=== PATIENT | female | born 1960 | race Caucasian/White ===

== ENCOUNTER 2023-10-30 19:29 | Observation (INO) ==
--- OUTSIDE RECORDS SUMMARY | 2023-10-30 19:52 | External Medical Summary | Summary of Care ---
Author Name Unknown Organization [facility] Address [address] [place] [address] Phone [phone] Care Team Providers Care Drywall Taper Helper Name Role Phone Beau Enriquez MD Primary Care Provider [phone] [phone] Encounter Details Date Type Department Care Team (Late st Contact Info) Description 08/16/2023 Orders Only Outcomes Research Department [address] [place], [place] [id number] Sindhu Underwood CHRA [employer] Other*[id number] Allergies Active Allergy Reactions Criticality Noted Date Comments Amoxicillin-Pot Clavulanate 08/28/19 Cat Dander 11/07/2004 Clarithromycin 11/19/2003 Fluoride Preparations 11/13/2021 abd pain Macrolides And Ketolides 05/05/2001 GI upset Sulfa Antibiotics 07/07/2000 hives documented as of this encounter (statuses as of 08/16/2023) Medications Medication Sig Dispensed Refills Start Date End Date Status ADVIL 200 MG PO TABS 2 tablets po q 4hrs prn fibromyalgia pain 0 Active Esomeprazole Magnesium 20 MG Oral Capsule Delayed ReleaseIndications: Gastroesophageal reflux disease, esophagitis presence not specified Take 1 Capsule by mouth in the morning. 1 hour before the first meal of the day Buys OTC. 90 Cap 3 09/22/2019 Active Combivent Respimat 20-100 MCG/ACT Inhalation Aerosol Solution (Ipratropium-Albute rol) inhale 1 puff by mouth and INTO THE LUNGS four times a day if needed for wheezing or cough 12 g 1 07/01/2022 Active Multivitamin Gummies Womens Oral Tablet Chewable Take by mouth. 0 Activ e Premarin 0.625 MG/GM Vaginal Cream (Estrogens Conjugated)Indicati ons:Atrophy of vulva Apply 0.5g twice a week 42.5 g 6 11/09/2022 Active Fluticasone-Salmete rol 250-50 MCG/ACT Inhalation Aerosol Powder Breath Activated (Wixela Inhub) Inhale 1 Puff by mouth in the morning and 1 Puff before bedtime. 60 Each 12 02/05/2023 Active Colestipol HCl 1 GM Oral Tablet (Colestid) 1-2 tabs once daily. 30 Tablet 12 02/16/2023 Active Fluticasone Propionate 50 MCG/ACT Nasal Suspension (Flonase) instill 2 sprays into each nostril once daily 48 g 3 03/03/2023 Active Amitriptyline HCl 25 MG Oral Tablet (Elavil) take 2 tablets by mouth at bedtime 60 Tablet 5 04/29/2023 Active Ondansetron HCl 4 MG Oral TabletIndications:M igraine variant Take 1 Tablet by mouth every 12 hours as needed for Nausea. 30 Tablet 0 05/12/2023 Active Rizatriptan Benzoate 10 MG Oral Tablet (Maxalt) TAKE 1 TABLET BY MOUTH AT ONSET OF MIGRAINE NEEDED. MAY REPEAT EVERY 2 HOURS UP TO 2 TIMES. DO NOT EXCEED 3 TABLETS PER 24 HOURS Strength: 10 mg 20 Tablet 3 05/12/2023 Active Dicyclomine HCl 10 MG Oral Capsule (Bentyl)Indications :Abdominal migraine, not intractable take 1 capsule by mouth every morning 1 capsule AT 12PM and 1 capsule at bedtime if needed for abdominal pain 90 Capsule 3 05/24/2023 Active Galcanezumab-gnlm 120 MG/ML Subcutaneous Solution Auto-injector (Emgality) 2 injections the first month and then 1 injection there after 2 mL 0 07/13/2023 Active Emgality 120 MG/ML Subcutaneous Solution Auto-injector (Galcanezumab-gnlm) 1 injection every month after the first month. 1 mL 3 07/13/2023 Active documented as of this encounter (statuses as of 08/16/2023) Active Problems Problem Noted Date Diagnosed Date Migraine variant 10/22/2020 Vaginal atrophy 08/09/2020 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/07/2020 Gastroesophageal reflux disease without esophagi tis 08/04/2020 Irritable bowel syndrome with diarrhea Fibromyalgia documented as of this encounter (statuses as of 08/16/2023) Resolved Problems Problem Noted Date Diagnosed Date Resolved Date Overweight (BMI 25.0-29.9) 02/02/2022 0 07/31/2022 Reactive airway disease without complication 2 02/02/2022 Mild intermittent asthma without complication 02/05/20 21 07/28/2021 Advanced directives, counseling/discussion 10/15/2020 02/04/2021 Urinary frequency 08/09/2020 02/04/2021 Mild persistent asthma with exacerbation 08/07/2020 08/07/2020 Mild persistent asthma without complication 08/07/2020 08/04/2023 Body mass index (BMI) of 40. 0 to 44.9 in adult 03/20/2019 07/20/2019 Overview: Per Obesity protocol History of tobacco use 12/17/201008/04 ADVANCE DIRECTIVE INFORMATION 11/07/2004 08/04/2020 Overview: No, Advance Directive brochure given to patient at prior appointment. POST-OPERATIVE CERVICAL STENOSIS 08/04/2020 documented as of this encounter (statuses as of 08/16/2023) Immunizations Name Administration Dates Next Due COVID-19 mRNA, LNP-s, No Pre serve, 2-Dose Series (Moderna) 08/14/2020,07/17/2020 COVID-19, mRNA, LNP-s, PF, B ooster, 100mcg/0.5mg (Moderna) 03/17/2021 Pneumococcal Conjugate Vacci ne, 20-valent ([id number]) 11/02/2021 Pneumococcal Polysaccharide PPV23 (Pneumovax) 12/17/2010,03/21/2010(Deferred: Patient Refused) Seasonal Influenza, PF, 6 M & above, IM , (FluLaval or Fluzone) 02/02/2022,01/10/2020,01/16/2019,03/12,02/02/2017 Seasonal Influenza, Quadriva lent, No Preserve, IM 01/28/2021,02/03/2016,03/28/2015 Seasonal Influenza, Split, I IV3, With Preserve, Inj 03/21/2010,04/20/2009,04/04/2007 TDAP (age 10 and older)(Boostrix) 02/07/2021 TDAP (age 11 and older)(Adacel) 12/18/19 11,03/21/2010(Deferred: Patient Refused) Zoster Vaccine Recombinant (Shingrix) 04/05/2018 ,01/27/2018 documented as of this encounter Social History Tobacco Use Types Packs/Day Years Used Date Smoking Tobacco: Former Cigarettes 0.5 32 1 06/04/1982 - 04/04/2015 Smokeless Tobacco: Never Comments:started smoking age 18, as of 06-17 "cutting bk, now down to 1/2 pk qd Alcohol Use Standard Drinks/Week Comments Yes 0 (1 standard drink = 0.6 oz pur e alcohol) social PHQ-2 Answer Date Recorded PHQ Adult Total Score 0 08/07/2020 Hunger Vital Sign Answer Date Recorded Within the past 12 months, y ou worried that your food would run out before you got the money to buy more. Never true 11/25/19 23 Within the past 12 months, t he food you bought just didn't last and you didn't have money to get more. Never true 11/24/2022 Sex and Gender Information Value Date Recorded Sex Assigned at Female 01/22/2021 6:28 AM EDT Gender Identity Female 01/22/2021 6:28 AM EDT Sexual Orientation Straight 01/22/2021 6: 28 AM EDT Job Start Date Occupation Industry Not on file Not on file Not on file documented as of this encounter Plan of Treatment Upcoming Encounters Date Type Department Care Team (Late st Contact Info) Description 08/17/2023 9:30 AM EDT Office Visit Gastroenterology, [facility] [address] [place] [address] Scott Jarrell CRNP [address] [facility] [place] [address] 12/20/2023 8:00 AM EDT Imaging Radiology [facility] [place] [address] [place] [address] 01/03/2024 1:00 PM EDT Office Visit Gynecology/Obstetrics [facility] [address] [facility] [place] [address] Mckenzie Canseco PA-C [address] [place] [address] 01/19/2024 8:40 AM EDT Office Visit [facility] [address] [place] [address] Madelin Pickett PA-C [address] [place] [address] 02/07/2024 11:40 AM EDT Office Visit Family Practice [facility] [address] [facility] [place] [address] Beau Enriquez MD [address] [place] [address] Scheduled Orders Name Type Priority Associated Diagnoses Orde r Schedule MYCODE SUBSEQUENT ADULT Lab Routine [employer] Other*[id number] Every 6 Months for 2 Occurrences starting 08/16/2023 until 09/04/2024 Scheduled Procedures Name Priority Associated Diagnoses Date/Ti me COLONOSCOPY FLEXIBLE PROXIMAL DIAGNOSTIC Recall History of colon polyps Health Maintenance Due Date Last Done Comments HPV/Co-Test 02/27/1990 Depression Screening 08/07/2021 08/07/2020 COVID-19 Vaccine ( season) 2023 03/17/2021, 08/14/2020, 07/17/2020 Mammogram 12/18/2023 12/17/2022, 12/09, 12/11/2021, Additional history exists Influenza Vaccine (FLU shot) (Season Ended) 2024 02/02/2022, 01/28/2021, 01/10/2020, Additional history exists Cervical Cancer Screening 08/27/2024 Pap Smear 08/27/2024 08/27/2021, 08/08, 03/23/2016, Additional history exists Diabetes Screening 07/15/2025 07/15/2022, 0 05/10/2022, 01/23/2017, Additional history exists COLONOSCOPY-EVERY 5 YRS AGES 18-100 09/04/2026 09/04/2021, 09/04/2021, 11/12/2004 Lipid Panel 07/16/2027 07/15/2022, 01/08, 12/19/2010 DTaP,Tdap,and Td Vaccines (3 - Td or Tdap) 02/07/2031 02/07/2021, 12/17/2010 Zoster Vaccines Completed 04/05/2018, 01/27/2018 Cologuard Discontinued 08/18/2020, 02/01/2017 Colonoscopy Discontinued 09/04/2021, 08/09, 11/12/2004 Colorectal Cancer Screening Discontinued Pneumococcal Vaccine: Pediatrics (0 to 5 Years) and At-Risk Patients (6 to 64 Years) Completed 11/02/2021, 12/17/2010 Fecal Occult Blood Test Discontinued GARDASIL-HPV IMMUNIZATION SERIES Aged Out No longer eligible based on patient's age to complete this topic Hepatitis B Aged Out No longer eligi ble based on patient's age to complete this topic MENINGOCOCCAL (MENACTRA/MENVEO) Aged Out No longer eligible based on patient's age to complete this topic Sigmoidoscopy Discontinued documented as of this encounter Medical Devices Not on filedocumented as of this encounter Visit Diagnoses Diagnosis [employer] Other*[id number] documented in this encounter Care Teams Drywall Taper Helper Relationship Specialty Start Date End Date Beua Enriquez MD [address] [place] [address] PCP - General Family Medicine 07/26/20 documented as of this encounter
--- OUTSIDE RECORDS SUMMARY | 2023-10-30 19:52 | External Medical Summary | Summary of Care ---
Author Name Unknown Organization [facility] Address [address] [place] [address] Phone [phone] Care Team Providers Care Inside Finisher Name Role Phone Beau Enriquez MD Primary Care Provider [phone] [phone] Reason for Visit * Reason Onset Date Comments Health Maintenance 08/02/2023 Encounter Details Date Type Department Care Team (Late st Contact Info) Description 08/02/2023 Telephone Family Practice [facility] [address] [facility] [place] [address] Beau Enriquez MD [address] [facility] [place] [address] Health Maintenance Allergies Active Allergy Reactions Criticality Noted Date Comments Amoxicillin-Pot Clavulanate 08/28/19 22 Cat Dander 11/07/2004 Clarithromycin 11/19/2003 Fluoride Preparations 11/13/2021 abd pain Macrolides And Ketolides 05/05/2001 GI upset Sulfa Antibiotics 07/07/2000 hives documented as of this encounter (statuses as of 08/02/2023) Medications Medication Sig Dispensed Refills Start Date [...] as of this encounter (statuses as of 08/02/2023) Active Problems Problem Noted Date Diagnosed Date Migraine variant 10/22/2020 Vaginal atrophy 08/09/2020 Mild persistent asthma without complication 07/10 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/07/2020 Gastroesophageal reflux disease without esophagi tis 08/04/2020 Irritable bowel syndrome with diarrhea Fibromyalgia documented as of this encounter (statuses as of 08/02/2023) Resolved Problems Problem Noted Date Diagnosed Date Resolved Date Overweight (BMI 25.0-29.9) 02/02/2022 0 07/31/2022 Reactive airway disease without complication 2 02/02/2022 Mild intermittent asthma without complication 02/05/20 21 07/28/2021 Advanced directives, counseling/discussion 10/15/2020 02/04/2021 Urinary frequency 08/09/2020 02/04/2021 Mild persistent asthma with exacerbation 08/07/2020 08/07/2020 Body mass index (BMI) of 40. 0 to 44.9 in adult 03/20/2019 07/20/2019 Overview: Per Obesity protocol History of tobacco use 12/17/201008/04 ADVANCE DIRECTIVE INFORMATION 11/07/2004 08/04/2020 Overview: No, Advance Directive brochure given to patient at prior appointment. POST-OPERATIVE CERVICAL STENOSIS 08/04/2020 documented as of this encounter (statuses as of 08/02/2023) Immunizations Name Administration Dates Next Due COVID-19 mRNA, LNP-s, No Pre serve, 2-Dose Series (Moderna) 08/14/2020,07/17/2020 COVID-19, mRNA, LNP-s, PF, B ooster, 100mcg/0.5mg (Moderna) 03/17/2021 Pneumococcal Conjugate Vacci ne, 20-valent ([id number]) 11/02/2021 Pneumococcal Polysaccharide PPV23 (Pneumovax) 12/17/2010,03/21/2010(Deferred: Patient [...] Never Comments:started smoking age 18, as of 2-08 "cutting bk, now down to 1/2 pk [...] on file documented as of this encounter Miscellaneous Notes * Telephone Encounter - Trish Izquierdo LPN - 08/02/2023 2:24 PM EDT Care Gaps Comprehensive Care Outreach Last Office/Telemedicine Visit: 04/07/2023 (in office), 05/30/2020 (telemedicine) Next Office Visit: 08/04/2023 Hemoglobin AIC Results: Lab Results Component Value Date/Time HEMOGLOBIN A1C - SURYAER 5.6 07/15/2022 08:18 AM BP Readings from Last 1 Encounters: 07/13/23 134/88 Reviewed Health Maintenance below: Health Maintenance Topic Date Due Depression Screening 08/07/2021 *SPIROMETRY ONCE FOR ASTHMA-ADULT Never done Influenza Vaccine (FLU shot) (1) 01/08/2023 COVID-19 Vaccine ( season) 2023 Mammogram 12/18/2023 Mamm already scheduled order placed Pft my g Care Gap Outreach Action Taken: [employer] message sent documented in this encounter Plan of Treatment Upcoming Encounters Date Type Department Care Team (Late st Contact Info) Description 08/04/2023 10:40 AM EDT Office Visit Family Practice [facility] [address] [place] [address] Beau Enriquez MD [address] [place] [address] 10/13/2023 11:30 AM EDT Office Visit Gastroenterology, [facility] [address] [place] [address] Scott Jarrell CRNP [address] [place] [address] 12/20/2023 8:00 AM EDT Imaging Radiology [facility] [address] [place] [address] 01/03/2024 1:00 PM EDT Office Visit Gynecology/Obstetrics [facility] [address] [place] [address] Mckenzie Canseco PA-C [address] [place] [address] 01/19/2024 8:40 AM EDT Office Visit Neurology [facility] [address] [place] [address] Madelin Pickett PA-C [address] [facility] [place], [place] [address] Scheduled Orders Name Type Priority Associated Diagnoses Orde r Schedule MAMMOGRAM SCREENING AMARJIT BILATERAL Medical Imaging Routine Encounter for screening mammogram for malignant neoplasm of breast Expected: 08/02/2023, Expires: 09/01/2024 Scheduled Procedures Name Priority Associated Diagnoses Date/Ti me COLONOSCOPY FLEXIBLE PROXIMAL DIAGNOSTIC Recall History of colon polyps Health Maintenance Due Date Last Done Comments HPV/Co-Test 02/27/1990 Depression Screening 08/07/2021 08/07/2020 *SPIROMETRY ONCE FOR ASTHMA-ADULT 02/05/2022 COVID-19 Vaccine ( season) 2023 03/17/2021, 08/14/2020, 07/17/2020 Influenza Vaccine (FLU shot) (#1) 2023 02/02/2022, 01/28/2021, 01/10/2020, Additional history exists Mammogram 12/18/2023 12/17/2022, 12/09, 12/11/2021, Additional history exists Cervical Cancer Screening 08/27/2024 [...] as of this encounter Visit Diagnoses Diagnosis Encounter for screening mammogram for malignant neoplasm of breast- Primary Other screening mammogram documented in this encounter Care Teams Inside Finisher Relationship Specialty Start Date End Date Beau Enriquez MD [address] [place] [address] PCP - General Family Medicine 07/26/20 documented as of this encounter
--- OUTSIDE RECORDS SUMMARY | 2023-10-30 19:52 | External Medical Summary | Summary of Care ---
Author Name Unknown Organization [facility] Address [address] [place] [address] Phone [phone] Care Team Providers Care Cabinet Builder Name Role Phone Jaime Still MD Primary Care Provider [phone] [phone] Reason for Visit * Reason Onset Date Comments Medication Refill 09/26/2023 Encounter Details Date Type Department Care Team (Late st Contact Info) Description 09/26/2023 Refill Family Practice [facility] [address] [facility] [place] [address] Jaime Still MD [address] [facility] [place] [address] Allergies Active Allergy Reactions Criticality Noted Date Comments Amoxicillin-Pot Clavulanate 08/28/19 22 Cat Dander 11/07/2004 Clarithromycin 11/19/2003 Fluoride Preparations 11/13/2021 abd pain Macrolides And Ketolides 05/05/2001 GI upset Sulfa Antibiotics 07/07/2000 hives documented as of this encounter (statuses as of 09/28/2023) Medications Medication Sig Dispensed Refills Start Date End Date Status ADVIL 200 MG PO TABS 2 tablets po q 4hrs prn fibromyalgia pain Active Esomeprazole Magnesium 20 MG Oral Capsule Delayed ReleaseIndication s:Gastroesophagea l reflux disease, esophagitis presence not specified Take 1 Capsule by mouth in the morning. 1 hour before the first meal of the day Buys OTC. 90 Cap 3 09/22/2019 Active Multivitamin Gummies Womens Oral Tablet Chewable Take by mouth. Active Premarin 0.625 MG/GM Vaginal Cream (Estrogens Conjugated)Indica tions:Atrophy of vulva Apply 0.5g twice a week 42.5 g 6 11/09/2022 Active Fluticasone-Salme terol 250-50 MCG/ACT Inhalation Aerosol Powder Breath Activated (Wixela Inhub) Inhale 1 Puff by mouth in the morning and 1 Puff before bedtime. 60 Each 12 02/05/2023 Active Colestipol HCl 1 GM Oral Tablet (Colestid) 1-2 tabs once daily. 30 Tablet 12 02/16/2023 Active Fluticasone Propionate 50 MCG/ACT Nasal Suspension (Flonase) instill 2 sprays into each nostril once daily 48 g 3 03/03/2023 Active Ondansetron HCl 4 MG Oral TabletIndications :Migraine variant Take 1 Tablet by mouth every 12 hours as needed for Nausea. 30 Tablet 05/12/2023 Active Dicyclomine HCl 10 MG Oral Capsule (Bentyl)Indicatio ns:Abdominal migraine, not intractable take 1 capsule by mouth every morning 1 capsule AT 12PM and 1 capsule at bedtime if needed for abdominal pain 90 Capsule 3 05/24/2023 Active Galcanezumab-gnlm 120 MG/ML Subcutaneous Solution Auto-injector (Emgality) 2 injections the first month and then 1 injection there after 2 mL 07/13/2023 Active Emgality 120 MG/ML Subcutaneous Solution Auto-injector (Galcanezumab-gnl m) Inject 1 pen (120 mg) under the skin every month after the first month. 1 mL 3 07/13/2023 Active Rizatriptan Benzoate 10 MG Oral Tablet (Maxalt) take 1 tablet by mouth AT ONSET OF HEADACHE may repeat in 2 hours IF headache PERSISTS maximum daily dose of 3 tablets ( 30 milligrams ) every 24 hours 20 Tablet 3 08/16/2023 Active Amitriptyline HCl 25 MG Oral Tablet (Elavil) take 2 tablets by mouth at bedtime 60 Tablet 5 09/27/2023 Active Combivent Respimat 20-100 MCG/ACT Inhalation Aerosol Solution (Ipratropium-Albu terol) Inhale 1 puff by mouth and INTO THE LUNGS four times a day if needed for wheezing or cough 12 g 1 09/28/2023 Active Combivent Respimat 20-100 MCG/ACT Inhalation Aerosol Solution (Ipratropium-Albu terol) inhale 1 puff by mouth and INTO THE LUNGS four times a day if needed for wheezing or cough 12 g 1 07/01/2022 Discontinue d(Refill) documented as of this encounter (statuses as of 09/28/2023) Active Problems Problem Noted Date Diagnosed Date Migraine variant 10/22/2020 Vaginal atrophy 08/09/2020 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/07/2020 Gastroesophageal reflux disease without esophagi tis 08/04/2020 Irritable bowel syndrome with diarrhea Fibromyalgia documented as of this encounter (statuses as of 09/28/2023) Resolved Problems Problem Noted Date Diagnosed Date [...] as of this encounter (statuses as of 09/28/2023) Immunizations Name Administration Dates Next Due COVID-19 mRNA, LNP-s, No Pre serve, 2-Dose Series (Moderna) 08/14/2020,07/17/2020 COVID-19, mRNA, LNP-s, PF, B ooster, 100mcg/0.5mg (Moderna) 03/17/2021 Pneumococcal Conjugate Vacci ne, 20-valent ([id number]) 11/02/2021 Pneumococcal Polysaccharide PPV23 (Pneumovax) 12/17/2010,03/21/2010(Deferred: Patient [...] encounter Miscellaneous Notes * Telephone Encounter - Dontae Blair, [facility] - 09/28/2023 7:11 AM EDTSigned Prescriptions: Disp Refills Combivent Respimat 20-100 MCG/ACT Inhalati*12 g 1 Sig: Inhale 1puff by mouth and INTO THE LUNGS four times a day if needed for wheezing or coughAuthorizing Provider: JAIME STILL User: DONTAE DAI documented in this encounter Plan of Treatment Upcoming Encounters Date Type Department Care Team (Late st Contact Info) Description 12/20/2023 8:00 AM EDT Imaging Radiology [facility] [address] [facility] [address] [place] [address] 01/03/2024 1:00 PM EDT Office Visit Gynecology/Obstetrics [facility] [address] [place] [address] Mckenzie Canseco PA-C [address] [place] [address] 01/19/2024 8:40 AM EDT Office Visit Neurology [facility] [address] [facility] [place] [address] Madelin Pickett PA-C [address] [facility] [place] [address] 02/07/2024 11:40 AM EDT Office Visit Family Practice [facility] [address] [place] [address] Jaime Still MD [address] [place] [address] Scheduled Procedures Name Priority Associated Diagnoses Date/Ti me COLONOSCOPY FLEXIBLE PROXIMAL DIAGNOSTIC Recall History of colon polyps Health Maintenance Due Date Last Done Comments HPV/Co-Test 02/27/1990 Fecal Occult Blood Test 02/27/2005 Sigmoidoscopy 02/27/2005 Depression Screening 08/07/2021 08/07/2020 COVID-19 Vaccine ( season) 2023 03/17/2021, 08/14/2020, 07/17/2020 Cologuard 08/19/2023 08/18/2020, 02/01/2017 Mammogram 12/18/2023 12/17/2022, 12/09, 12/11/2021, Additional history exists Influenza Vaccine (FLU shot) (Season Ended) 2024 02/02/2022, 01/28/2021, 01/10/2020, Additional history exists Cervical Cancer Screening 08/27/2024 Pap Smear 08/27/2024 08/27/2021, 08/08, 03/23/2016, Additional history exists Diabetes Screening 07/15/2025 07/15/2022, 0 05/10/2022, 01/23/2017, Additional history exists Colonoscopy 09/04/2026 09/04/2021, 08/09, 11/12/2004 Colorectal Cancer Screening 09/04/2026 Lipid Panel 07/16/2027 07/15/2022, 01/08, 12/19/2010 DTaP,Tdap,and Td Vaccines (3 - Td or Tdap) 02/07/2031 02/07/2021, 12/17/2010 Zoster Vaccines Completed 04/05/2018, 01/27/2018 RETIRED - COLONOSCOPY-EVERY 5 YRS AGES 18-100 Discontinued 09/04/2021, 09/04/2021, 11/12/2004 Pneumococcal Vaccine: Pediatrics (0 to 5 Years) and At-Risk Patients (6 to 64 Years) Completed 11/02/2021, 12/17/2010 GARDASIL-HPV IMMUNIZATION SERIES Aged Out No longer eligible based on patient's age to complete this topic Hepatitis B Aged Out No longer eligi ble based on patient's age to complete this topic MENINGOCOCCAL (MENACTRA/MENVEO) Aged Out No longer eligible based on patient's age to complete this topic documented as of this encounter Medical Devices Not on filedocumented as of this encounter Care Teams Cabinet Builder Relationship Specialty Start Date End Date Jaime Still MD [address] [place] [address] PCP - General Family Medicine 07/26/20 documented as of this encounter
--- OUTSIDE RECORDS SUMMARY | 2023-10-30 19:52 | External Medical Summary | Summary of Care ---
Author Name Unknown Organization [facility] Address [address] [place] [address] Phone [phone] Care Team Providers Care Outboard Motor Inspector Name Role Phone Beau Enriquez MD Primary Care Provider [phone] [phone] Reason for Visit * Reason Onset Date Comments Medication Refill 09/26/2023 Encounter Details Date Type Department Care Team (Late st Contact Info) Description 09/26/2023 Refill Neurology [facility] [address] [place] [address] Yonathan Wright PA-C [address] [place] [address] Allergies Active Allergy Reactions Criticality Noted Date Comments Amoxicillin-Pot Clavulanate 08/28/19 22 Cat Dander 11/07/2004 Clarithromycin 11/19/2003 Fluoride Preparations 11/13/2021 abd pain Macrolides And Ketolides 05/05/2001 GI upset Sulfa Antibiotics 07/07/2000 hives documented as of this encounter (statuses as of 09/27/2023) Medications Medication Sig Dispensed Refills Start Date [...] at bedtime 60 Tablet 5 09/27/2023 Active Amitriptyline HCl 25 MG Oral Tablet (Elavil) take 2 tablets by mouth at bedtime 60 Tablet 5 04/29/2023 Discontinue d(Refill) documented as of this encounter (statuses as of 09/27/2023) Active Problems Problem Noted Date Diagnosed Date Migraine variant 10/22/2020 Vaginal atrophy 08/09/2020 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/07/2020 Gastroesophageal reflux disease without esophagi tis 08/04/2020 Irritable bowel syndrome with diarrhea Fibromyalgia documented as of this encounter (statuses as of 09/27/2023) Resolved Problems Problem Noted Date Diagnosed Date Resolved Date Overweight (BMI 25.0-29.9) 02/02/2022 0 07/31/2022 Reactive airway disease without complication 2 02/02/2022 Mild intermittent asthma without complication 02/05/2007/28/2021 Advanced directives, counseling/discussion 10/15/2020 02/04/2021 Urinary frequency [...] as of this encounter (statuses as of 09/27/2023) Immunizations Name Administration Dates Next Due COVID-19 mRNA, LNP-s, No Pre serve, 2-Dose Series (Moderna) 08/14/2020,07/17/2020 COVID-19, mRNA, LNP-s, PF, B ooster, 100mcg/0.5mg (Moderna) 03/17/2021 Pneumococcal Conjugate Vacci ne, 20-valent ([id number]) 11/02/2021 Pneumococcal Polysaccharide PPV23 (Pneumovax) 12/17/2010,03/21/2010(Deferred: Patient Refused) Seasonal Influenza, PF, 6 M & above, IM , (FluLaval or Fluzone) 02/02/2022,01/10/2020,01/16/2019,03/12,02/02/2017 Seasonal Influenza, Quadriva lent, No Preserve, IM 01/28/2021,02/03/2016,03/28/2015 Seasonal Influenza, Split, I IV3, With Preserve, Inj 03/21/2010,04/20/2009,04/04/2007 TDAP (age 10 and older)(Boostrix) 02/07/2021 TDAP (age 11 and older)(Adacel) 12/18/19,03/21/2010(Deferred: Patient Refused) Zoster Vaccine Recombinant (Shingrix) 04/05/2018 [...] encounter Miscellaneous Notes * Telephone Encounter - Yonathan Wright PA-C - 09/27/2023 8:28 AM EDT Signed Prescriptions: Disp Refills Amitriptyline HCl 25 MG Oral Tablet (Elavi*60 Tab*5 Sig: take 2 tablets by mouth at bedtime Authorizing Provider: YONATHAN WRIGHT * Telephone Encounter - Ewa Horton, MED ASSIST - 09/27/2023 8:04 AM EDT Pending Prescriptions: Disp Refills Amitriptyline HCl 25 MG Oral Tablet (Elavi*60 Tab*5 Sig: take 2tablets by mouth at bedtime documented in this encounter Plan of Treatment Upcoming Encounters Date Type Department Care Team (Late st Contact Info) Description 12/20/2023 8:00 AM EDT Imaging Radiology [address] [place] [address] 01/03/2024 1:00 PM EDT Office Visit Gynecology/Obstetrics [facility] [address] [place] [address] Mckenzie Canseco PA-C [address] [place] [place] [address] 01/19/2024 8:40 AM EDT Office Visit Neurology [facility] [address] [place] [address] Yonathan Wright PA-C [address] [place] [address] 02/07/2024 11:40 AM EDT Office Visit Family Practice [facility] [address] [place] [address] Beau Enriquez MD [address] [place] [address] Scheduled Procedures Name Priority Associated Diagnoses Date/Ti [...] filedocumented as of this encounter Care Teams Outboard Motor Inspector Relationship Specialty Start Date End Date Beau Enriquez MD [address] [address] PCP - General Family Medicine 07/26/20 documented as of this encounter
--- OUTSIDE RECORDS SUMMARY | 2023-10-30 19:52 | External Medical Summary | Summary of Care ---
Author Name Unknown Organization [facility] Address [address] [place] [address] Phone [phone] Care Team Providers Care Occupational Safety And Health Manager Name Role Phone Jaime Still MD Primary Care Provider [phone] [phone] Reason for Visit * Reason Comments eRx-Medication Refill Encounter Details Date Type Department Care Team (Late st Contact Info) Description 08/15/2023 Refill Family Practice [facility] [address] [facility] [place] [address] Jaime Still MD [address] [facility] [place] [address] Allergies Active Allergy Reactions Criticality Noted [...] the day Buys OTC. 90 Cap 3 0 Active Combivent Respimat 20-100 MCG/ACT Inhalation Aerosol Solution (Ipratropium-Albu terol) inhale 1 puff by mouth and INTO THE LUNGS four times a day if needed for wheezing or cough 12 g 1 3 Active Multivitamin Gummies Womens Oral Tablet Chewable Take by mouth. 0 Active Premarin 0.625 MG/GM Vaginal Cream (Estrogens Conjugated)Indica tions:Atrophy of vulva Apply 0.5g twice a week 42.5 g 6 3 Active Fluticasone-Salme terol 250-50 MCG/ACT Inhalation Aerosol Powder Breath Activated (Wixela Inhub) Inhale 1 Puff by mouth in the morning and 1 Puff before bedtime. 60 Each 12 3 Active Colestipol HCl 1 GM Oral Tablet (Colestid) 1-2 tabs once daily. 30 Tablet 12 3 Active Fluticasone Propionate 50 MCG/ACT Nasal Suspension (Flonase) instill 2 sprays into each nostril once daily 48 g 3 3 Active Amitriptyline HCl 25 MG Oral Tablet (Elavil) take 2 tablets by mouth at bedtime 60 Tablet 5 3 Active Ondansetron HCl 4 MG Oral TabletIndications :Migraine variant Take 1 Tablet by mouth every 12 hours as needed for Nausea. 30 Tablet 0 4 Active Dicyclomine HCl 10 MG Oral Capsule (Bentyl)Indicatio ns:Abdominal migraine, not intractable take 1 capsule by mouth every morning 1 capsule AT 12PM and 1 capsule at bedtime if needed for abdominal pain 90 Capsule 3 4 Active Galcanezumab-gnlm 120 MG/ML Subcutaneous Solution Auto-injector (Emgality) 2 injections the first month and then 1 injection there after 2 mL 0 4 Active Emgality 120 MG/ML Subcutaneous Solution Auto-injector (Galcanezumab-gnl m) Inject 1 pen (120 mg) under the skin every month after the first month. 1 mL 3 4 Active Rizatriptan Benzoate 10 MG Oral Tablet (Maxalt) take 1 tablet by mouth AT ONSET OF HEADACHE may repeat in 2 hours IF headache PERSISTS maximum daily dose of 3 tablets ( 30 milligrams ) every 24 hours 20 Tablet 3 4 Active Rizatriptan Benzoate 10 MG Oral Tablet (Maxalt) TAKE 1 TABLET BY MOUTH AT ONSET OF MIGRAINE NEEDED. MAY REPEAT EVERY 2 HOURS UP TO 2 TIMES. DO NOT EXCEED 3 TABLETS PER 24 HOURS Strength: 10 mg 20 Tablet 3 4 08/16/19 24 Discontinued documented as of this encounter (statuses as [...] (Moderna) 03/17/2021 Pneumococcal Conjugate Vacci ne, 20-valent ([id number]) 11/02/2021 Pneumococcal Polysaccharide PPV23 (Pneumovax) 12/17/2010,03/21/2010(Deferred: Patient [...] encounter Miscellaneous Notes * Telephone Encounter - Jose Elias Roberts [facility] - 08/16/2023 4:03 PM EDT Signed Prescriptions: Disp Refills Rizatriptan Benzoate 10 MG Oral Tablet (Ma*20 Tab*3 Sig: take 1 tablet by mouth AT ONSET OF HEADACHE may repeat in 2 hours IF headache PERSISTS maximum daily dose of 3 tablets ( 30 milligrams ) every 24 hoursAuthorizing Provider: JAIME STILL User: JOSE ELIAS ROBERTS documented in this encounter Plan of Treatment Upcoming Encounters Date Type Department Care Team (Late st Contact Info) Description 08/17/2023 9:30 AM EDT Office Visit [facility], [facility] [place] [address] Scott Jarrell CRNP [address] [facility] [place] [address] 12/20/2023 8:00 AM EDT Imaging Radiology [facility] [address] [facility] [place] [address] 01/03/2024 1:00 PM EDT Office Visit Gynecology/Obstetrics [facility] [address] [facility] [place] [address] Mckenzie Canseco PA-C [address] [facility] [place] [address] 01/19/2024 8:40 AM EDT Office Visit [facility] [address] [place] [address] Madelin Pickett PA-C [address] [place] [address] 02/07/2024 11:40 AM EDT Office Visit Family Practice [facility] [address] [place] [address] Jaime Still MD [address] [place] [address] Scheduled Procedures Name Priority Associated Diagnoses Date/Ti [...] filedocumented as of this encounter Care Teams Occupational Safety And Health Manager Relationship Specialty Start Date End Date Jaime Still MD [address] [place] [address] PCP - General Family Medicine 07/26/20 documented as of this encounter
--- OUTSIDE RECORDS SUMMARY | 2023-10-30 19:52 | External Medical Summary | Summary of Care ---
Author Name Unknown Organization [facility] Address [address] [place] [address] Phone [phone] Care Team Providers Care Certified Forklift Operator Name Role Phone Beau Enriquez MD Primary Care Provider [phone] Reason for Visit * Reason Comments Dosage Adjustment Via Phone (anticoag Cl inic) Encounter Details Date Type Department Care Team (Late st Contact Info) Description 10/08/2023 1:00 PM EDT Telemedicine Neurology, [place] [address] [place] [address] [place], Pharmacist Neurology [address] [place] [address] Migraine variant* Allergies Active Allergy Reactions Criticality Noted Date Comments Amoxicillin-Pot Clavulanate 08/28/19 22 Cat Dander 11/07/2004 Clarithromycin 11/19/2003 Fluoride Preparations 11/13/2021 abd pain Macrolides And Ketolides 05/05/2001 GI upset Sulfa Antibiotics 07/07/2000 hives documented as of this encounter (statuses as of 10/08/2023) Medications Medication Sig Dispensed Refills Start Date [...] abdominal pain 90 Capsule 3 05/24/2023 Active Rizatriptan Benzoate 10 MG Oral Tablet [...] or cough 12 g 1 09/28/2023 Active Emgality 120 MG/ML Subcutaneous Solution Auto-injector (Galcanezumab-gnl m) Inject 1 mL under the skin Every Month. 1 mL 3 10/08/2023 Active Galcanezumab-gnlm 120 MG/ML Subcutaneous Solution Auto-injector (Emgality) 2 injections the first month and then 1 injection there after 2 mL 07/13/2023 4 Discontinue d(Medicatio n List Clean Up) Emgality 120 MG/ML Subcutaneous Solution Auto-injector (Galcanezumab-gnl m) Inject 1 pen (120 mg) under the skin every month after the first month. 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/07/2020 Gastroesophageal reflux disease without esophagi tis 08/04/2020 Irritable bowel syndrome with diarrhea Fibromyalgia documented as of this encounter (statuses as of 10/08/2023) Resolved Problems Problem Noted Date Diagnosed Date [...] as of this encounter (statuses as of 10/08/2023) Immunizations Name Administration Dates Next Due COVID-19 mRNA, LNP-s, No Pre serve, 2-Dose Series (Moderna) 08/14/2020,07/17/2020 COVID-19, mRNA, LNP-s, PF, B ooster, 100mcg/0.5mg (Moderna) 03/17/2021 Pneumococcal Conjugate Vacci ne, 20-valent ([id number]) 11/02/2021 Pneumococcal Polysaccharide PPV23 (Pneumovax) 12/17/2010,03/21/2010(Deferred: Patient Refused) Seasonal Influenza, PF, 6 M & above, IM , (FluLaval or Fluzone) 02/02/2022,01/10/2020,01/16/2019,03/12,02/02/2017 Seasonal Influenza, Quadriva lent, No Preserve, IM 01/28/2021,02/03/2016,03/28/2015 Seasonal Influenza, Split, I IV3, With Preserve, Inj 03/21/2010,04/20/2009,04/04/2007 TDAP (age 10 and older)(Boostrix) 02/07/2021 TDAP, Age 7 and older, IM (Adacel) 12/17,03/21/2010(Deferred: Patient Refused) Zoster Vaccine Recombinant (Shingrix) 04/05/2018 [...] on file documented as of this encounter Progress Notes * Miriam Ashraf, [facility] ED - 10/08/2023 1:25 PM EDT Clinical Pharmacy Service (Neurology): Medication Management Name: Sherri Coulter Diagnosis: Migraine CURRENT MEDICATION REGIMEN (as documented in last office visit on 07/13/23 with Madelin Pickett) Emgality Any new medication/OTC/herbals since last visit?: no new medications/OTC/herbals. CGRP mAb MEDICATION USE ASSESSMENT Adherence to all above active medications used for migraine: Were any of your last three doses administered outside of the due date? no Any issues obtaining your prescription for your cGRP mAb: no Allergic / Local Reactions Reported: very small - states more like a pink spot How long do these last: lasts no more than a day - not bothersome What makes better: n/a Side Effects Reported: constipation - patient is working with GI to manage her short bowel syndrome and and IBS vs. Abdominal migraine symptoms Patient denies at this time. DISEASE ACTIVITY and IMPACT ASSESSMENT Migraine Disability Assessment Test Number of Days On how many days in the last 3 months did you miss work or school because of your headaches? 2 - not working but in regards to commitments, missed 2 chiropractor appts How many days in the last 3 months was your productivity at work or school reduced by half or more because of your headaches? (Do not include days you counted in question 1 where you missed work or school.) 0 On how many days in the last 3 months did you not do household work (such as housework, home repairs and maintenance, shopping, caring for children and relatives) because of your headaches? 3 How many days in the last 3 months was your productivity in household work reduced by half of more because of your headaches? (Do not include days you counted in question 3 where you did not do household work.) 0 On how many days in the last 3 months did you miss family, social or leisure activities because of your headaches? 3 Total Score: 8 - states huge improvements from prior baseline as now not also having to take multiple days in a row out of her commitments for 3 day abdominal migraines MIDAS Grade Definition MIDAS Score I - Little or No Disability: 0-5 II - Mild Disability: 6-10 III - Moderate Disability: 11-20 IV - Severe Disability: 21+ ASSESSMENT / PLAN The patient was educated on when to contact neurology office/provider to include change in headachesymptoms or characteristics, worsened interference with quality of life, adverse drug effects, using excess pain relievers, or coughing/sneezing that causes headache. The patient was advised to seek urgent medical care if experiencing headache with accompanying alarming symptoms including but not limited to confusion, dizziness, slurred speech, vision loss, numbness, SOB, fever, and/or persistent vomiting/diarrhea. Continue headache plan outlined by provider. Patient reports that a refill will be needed for next month. Issued prescription to preferred pharmacy as confirmed with patient.. Patient is very satisfied with the control she is getting almost next day with the Emgality. She isalso grateful that her GI symptoms likely related to her abdominal migraine have improved and are now treatable with her medication regimen whereas in the past were still difficult to control. [place] remain on therapy. Next Neurology Provider Office Visit/Appt: 01/19/[address] [facility] Clinical Pharmacist Neurology Department 10/08/2023,1:15 PM documented in this encounter Plan of Treatment Upcoming Encounters Date Type Department Care Team (Late st Contact Info) Description 12/20/2023 8:00 AM EDT Imaging Radiology [address] [place] [address] 01/03/2024 1:00 PM EDT Office Visit Gynecology/Obstetrics [facility] [address] [place] [address] Mckenzie Canseco PA-C 132 [facility] [place] [address] 01/19/2024 8:40 AM EDT Office Visit Neurology [facility] [address] [facility] [place] [address] Madelin Pickett PA-C [address] [facility] [place] [address] 02/07/2024 11:40 AM EDT Office Visit Family Practice [facility] [address] [place] [address] Beau Enriquez MD [address] [place] [address] Scheduled Procedures Name Priority Associated Diagnoses Date/Ti [...] as of this encounter Visit Diagnoses Diagnosis Migraine variant- Primary Variants of migraine, not elsewhere classified, without mention of intractable migraine without mention of status migrainosus documented in this encounter Care Teams Certified Forklift Operator Relationship Specialty Start Date End Date Beau Enriquez MD [address] [place] [address] PCP - General Family Medicine 07/26/20 documented as of this encounter
--- OUTSIDE RECORDS SUMMARY | 2023-10-30 19:52 | External Medical Summary | Summary of Care ---
Author Name Unknown Organization [facility] Address [address] [place] [address] Phone [phone] Care Team Providers Care Clinic Nurse Name Role Phone Beau Enriquez MD Primary Care Provider [phone] Reason for Visit * Reason Onset Date Comments Precert Approved 07/13/2023 Emgality Encounter Details Date Type Department Care Team (Late st Contact Info) Description 07/13/2023 Telephone Neurology [facility] [address] [place] [address] Madelin Pickett PA-C [address] [place] [address] Precert Approved ( Emgality) Allergies Active Allergy Reactions Criticality Noted Date Comments Amoxicillin-Pot Clavulanate 08/28/19 22 Cat Dander 11/07/2004 Clarithromycin 11/19/2003 Fluoride Preparations 11/13/2021 abd pain Macrolides And Ketolides 05/05/2001 GI upset Sulfa Antibiotics 07/07/2000 hives documented as of this encounter (statuses as of 10/12/2023) Medications Medication Sig Dispensed Refills Start Date End Date Status ADVIL 200 MG PO TABS 2 tablets po q 4hrs prn fibromyalgia pain Active Esomeprazole Magnesium 20 MG Oral Capsule Delayed ReleaseIndicatio ns:Gastroesophag eal reflux disease, esophagitis presence not specified Take 1 Capsule by mouth in the morning. 1 hour before the first meal of the day Buys OTC. 90 Cap 3 0 Active Multivitamin Gummies Womens Oral Tablet Chewable Take by mouth. Active Premarin 0.625 MG/GM Vaginal Cream (Estrogens Conjugated)Indic ations:Atrophy of vulva Apply 0.5g twice a week 42.5 g 6 3 Active Fluticasone-Salm eterol 250-50 MCG/ACT Inhalation Aerosol Powder Breath Activated (Wixela Inhub) Inhale 1 Puff by mouth in the morning and 1 Puff before bedtime. 60 Each 12 3 Active Colestipol HCl 1 GM Oral Tablet (Colestid) 1-2 tabs once daily. 30 Tablet 12 3 Active Fluticasone Propionate 50 MCG/ACT Nasal Suspension (Flonase) instill 2 sprays into each nostril once daily 48 g 3 3 Active Ondansetron HCl 4 MG Oral TabletIndication s:Migraine variant Take 1 Tablet by mouth every 12 hours as needed for Nausea. 30 Tablet 4 Active Dicyclomine HCl 10 MG Oral Capsule (Bentyl)Indicati ons:Abdominal migraine, not intractable take 1 capsule by mouth every morning 1 capsule AT 12PM and 1 capsule at bedtime if needed for abdominal pain 90 Capsule 3 4 Active Combivent Respimat 20-100 MCG/ACT Inhalation Aerosol Solution (Ipratropium-Alb uterol) inhale 1 puff by mouth and INTO THE LUNGS four times a day if needed for wheezing or cough 12 g 1 3 09/26/19 24 Discontinued(Re fill) Amitriptyline HCl 25 MG Oral Tablet (Elavil) take 2 tablets by mouth at bedtime 60 Tablet 5 3 09/26/19 24 Discontinued(Re fill) Rizatriptan Benzoate 10 MG Oral Tablet (Maxalt) TAKE 1 TABLET BY MOUTH AT ONSET OF MIGRAINE NEEDED. MAY REPEAT EVERY 2 HOURS UP TO 2 TIMES. DO NOT EXCEED 3 TABLETS PER 24 HOURS Strength: 10 mg 20 Tablet 3 4 08/16/19 24 Discontinued Galcanezumab-gnl m 120 MG/ML Subcutaneous Solution Auto-injector (Emgality) 2 injections the first month and then 1 injection there after 2 mL 4 10/08/19 24 Discontinued(Oh dication List Clean Up) Emgality 120 MG/ML Subcutaneous Solution Auto-injector (Galcanezumab-gn lm) Inject 1 pen (120 mg) under the skin every month after the first month. 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/07/2020 Gastroesophageal reflux disease without esophagi tis 08/04/2020 Irritable bowel syndrome with diarrhea Fibromyalgia documented as of this encounter (statuses as of 10/12/2023) Resolved Problems Problem Noted Date Diagnosed Date [...] as of this encounter (statuses as of 10/12/2023) Immunizations Name Administration Dates Next Due COVID-19 mRNA, LNP-s, No Pre serve, 2-Dose Series (Moderna) 08/14/2020,07/17/2020 COVID-19, mRNA, LNP-s, PF, B ooster, 100mcg/0.5mg (Moderna) 03/17/2021 Pneumococcal Conjugate Vacci ne, 20-valent ([id number]) 11/02/2021 Pneumococcal Polysaccharide PPV23 (Pneumovax) 12/17/2010,03/21/2010(Deferred: Patient [...] encounter Miscellaneous Notes * Telephone Encounter - Keesha Vera OSA - 07/15/2023 1:20 PM EST Insurance is asking for number of headache days per month - do not see in notes Please advise - ty * Telephone Encounter - Vince Andrews, equity analyst - 07/13/2023 3:58 PM EST New or re-auth: new Patient Sherri Coulter needs a prior authorization for a medication through their [employer] insurance. Medication: Emgality Formulation: 120mg prefilled pen Dosage: 2ml for 30ds, then 1ml for 30ds ID: [id number] [id number] PCN:[id number] Target ship date is n/a. Thank you very much, Emely Andrews Railways Assistant, [facility] 07/13/2023 3:59 PM documented in this encounter Plan of Treatment Upcoming Encounters Date Type Department Care Team (Late st Contact Info) Description 12/20/2023 8:00 AM EDT Imaging Radiology [address] [facility] [place] [address] 01/03/2024 1:00 PM EDT Office Visit Gynecology/Obstetrics [facility] [address] [facility] [place] [address] Mckenzie Canseco PA-C 132 [facility] [place] [address] 01/19/2024 8:40 AM EDT [facility] [address] [place] [address] Madelin Pickett PA-C [address] [place] [address] 02/07/2024 11:40 AM EDT Office Visit Family Practice [facility] [address] [place] [address] Beau Enriquez MD [address] [place] [address] Scheduled Procedures Name Priority Associated Diagnoses Date/Ti [...] filedocumented as of this encounter Care Teams Clinic Nurse Relationship Specialty Start Date End Date eBau Enriquez MD [address] [place] [address] PCP - General Family Medicine 07/26/20 documented as of this encounter
--- OUTSIDE RECORDS SUMMARY | 2023-10-30 19:52 | External Medical Summary | Summary of Care ---
Author Name Unknown Organization [facility] Address [address] [place] [address] Phone [phone] Care Team Providers Care Host Hostess Name Role Phone Beau Enriquez MD Primary Care Provider [phone] Reason for Visit * Reason Comments Re-Check Encounter Details Date Type Department Care Team (Late st Contact Info) Description 08/17/2023 9:30 AM EDT Office Visit Gastroenterology, [facility] [address] [place] [address] Scott Jarrell CRNP [address] [place] [address] History of IBS*; Irritable bowel syndrome with diarrhea; Abdominal migraine, not intractable Allergies Active Allergy Reactions Criticality Noted Date Comments Amoxicillin-Pot Clavulanate 08/28/19 22 Cat Dander 11/07/2004 Clarithromycin 11/19/2003 Fluoride Preparations 11/13/2021 abd pain Macrolides And Ketolides 05/05/2001 GI upset Sulfa Antibiotics 07/07/2000 hives documented as of this encounter (statuses as of 08/17/2023) Medications Medication Sig Dispensed Refills Start Date [...] for Nausea. 30 Tablet 0 05/12/2023 Active Dicyclomine HCl 10 MG Oral [...] Emgality 120 MG/ML Subcutaneous Solution Auto-injector (Galcanezumab-gnlm) Inject 1 pen (120 mg) under the skin every month after the first month. 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/07/2020 Gastroesophageal reflux disease without esophagi tis 08/04/2020 Irritable bowel syndrome with diarrhea Fibromyalgia documented as of this encounter (statuses as of 08/17/2023) Resolved Problems Problem Noted Date Diagnosed Date Resolved Date Overweight (BMI 25.0-29.9) 02/02/2022 0 07/31/2022 Reactive airway disease without complication 02/02/2022 Mild intermittent asthma without complication 02/05/20 [...] as of this encounter (statuses as of 08/17/2023) Immunizations Name Administration Dates Next Due COVID-19 mRNA, LNP-s, No Pre serve, 2-Dose Series (Moderna) 08/14/2020,07/17/2020 COVID-19, mRNA, LNP-s, PF, B ooster, 100mcg/0.5mg (Moderna) 03/17/2021 Pneumococcal Conjugate Vacci ne, 20-valent ([id number]) 11/02/2021 Pneumococcal Polysaccharide PPV23 (Pneumovax) 12/17/2010,03/21/2010(Deferred: Patient [...] on file documented as of this encounter Last Filed Vital Signs Vital Sign Reading Time Taken Comments Blood Pressure 122/68 08/17/2023 9:25 AM EDT Pulse 89 08/17/2023 9:25 AM EDT Temperature 36.5 C (97.7 F) 08/17/2023 9:25 AM ED T Respiratory Rate - - Oxygen Saturation 99% 08/17/2023 9:25 AM EDT Inhaled Oxygen Concentration - - Weight 62.1 kg (136 lb 14.4 oz) 08/17/2023 9:25 AM EDT Height - - Body Mass Index 24.64 08/04/2023 10:48 AM EDT documented in this encounter Progress Notes * Scott Jarrell CRNP - 08/17/2023 9:35 AM EDT CC: Recheck HPI: Recall that Ms. Sherri Coulter is a 63 yr old female pt of Dr. Enriquez with a hx of GERD, asthma, myalgias, short gut syndrome (ileocectomy for complications related to diverticulitis in 1999 and 2004) who was most recently seen in GI in 2022 for reflux and abd pain consistent w IBS and abd migraines. Current GI Symptoms: Gets multiple Bms, up to 6/day when has an abdominal migraine. Overall, doing better. Because her migraines are much improved, not getting any severe abd pain attachs - not abd pain is mild and difficult to know if IBS or abd migraine. Walk/running 1 1/2 miles/day. Current GI Meds: Amitriptyline 50mg at night Ondansetron 4mg prn nausea Esomeprazole 20mg Daily; takes regularly Dicyclomine 10mg prn abd cramping; uses occasionally. Colestipol 1 tab daily; takes one daily Prednisone taper x 2 this year which she tells me she takes to reset the migraines. (Originally prescribed by Dr Crowley, now by PCP). Diagnostic Testing: Colonoscopy August [address] for chronic diarrhea [address] Dr. Crowley: - Hemorrhoids found on perianal exam. - The examined portion of the ileum was normal. - Patent end-to-side ileo-colonic anastomosis, characterized by healthy appearing mucosa. - Patent end-to-side colo-colonic anastomosis, characterized by healthy appearing mucosa. - Mild diverticulosis in the descending colon. - Normal mucosa in the entire examined colon. Fluid aspiration performed. Biopsied. - One 5 mm polyp in the descending colon, removed with a cold snare. Resected and retrieved. - One 7 mm polyp in the rectum, removed with a cold snare. Resected and retrieved. - Internal hemorrhoids. - The examination was otherwise normal. Path: A. Colon, random, biopsies: Fragments colonic mucosa with no significant pathologic change No evidence of a colitis B. Colon, descending, biopsies: Fragments of hyperplastic polyp C. Colon, rectum, polypectomy: Hyperplastic polyp EXAM: BP 122/68 (BP Site: Left Arm, BP Position: Sitting, BP Cuff Size: Regular) | Pulse 89 | Temp 36.5 C (97.7 F) (Tympanic) | Wt 62.1 kg (136 lb 14.4 oz) | LMP 07/08/2008 | SpO2 99% | BMI 24.64 kg/m | BSA 1.66 m GENERAL: 63 year old female well developed and well nourished in no acute distress SKIN: no rashes, ulcers, or spider angiomata HEENT: normocephalic, sclera clear, pharynx normal NECK: supple, no lymphadenopathy, no masses or thyroid enlargement LUNGS: clear to auscultation anterior and posterior HEART: regular rate & rhythm, no murmurs and no gallops ABDOMEN: normo-active bowel sounds, soft, non-tender, non-distended no masses, no hepatosplenomegaly, no rebound or guarding, no bruits EXTREMITIES: no palmar erythema, no edema, no skin discoloration, no clubbing, no cyanosis NEURO: no lateralizing findings, Sensory/Motor grossly normal IMPRESSION/RECOMMENDATIONS: 63 year old female with: History of IBS (Primary) Irritable bowel syndrome with diarrhea Abdominal migraine, not intractable For nausea If you take takes zofran - also take colace BID. Colestipol - adjust 1-2 daily as needed. Hold if taking zofran. Continue Esomeprazole 20mg Daily and Dicyclomine 10mg prn abd cramping I spent a total of 30 minutes on the date of service in review of patient's record, and previously obtained information in person and appropriate medical visit, discussion and education of plan, withpatient and/or caregiver, placing orders for tests/referral/procedures as medically necessary and documentation of pertinent clinical information in patient's medical records for their visit today. Recheck in GI yearly and prn. Thank you for the opportunity to be involved in the care of this patient. SHARRI Brown documented in this encounter Nursing Notes * Pam Wan LPN - 08/17/2023 9:24 AM EDT Chief Complaint Patient presents with Re-Check Would like to discuss getting a different medication for nausea due to hers causing constipation documented in this encounter Plan of Treatment Upcoming Encounters Date Type Department Care Team (Late st Contact Info) Description 12/20/2023 8:00 AM EDT Imaging Radiology [facility] [address] [facility] [address] [place] [address] 01/03/2024 1:00 PM EDT Office Visit Gynecology/Obstetrics [facility] [address] [address] Mckenzie Canseco PA-C [address] [place] [address] 01/19/2024 8:40 AM EDT Office Visit Neurology [facility] [address] [facility] [place] [address] Madelin Pickett PA-C [address] [facility] [place] [address] 02/07/2024 11:40 AM EDT Office Visit Family Practice [facility] [address] [place] [address] Beau Enriquez MD [address] [place] [address] Scheduled Procedures Name Priority Associated Diagnoses Date/Ti [...] as of this encounter Visit Diagnoses Diagnosis History of IBS- Primary Personal history of other diseases of digestive system Irritable bowel syndrome with diarrhea Irritable bowel syndrome Abdominal migraine, not intractable Variants of migraine, not elsewhere classified, without mention of intractable migraine without mention of status migrainosus documented in this encounter Care Teams Host Hostess Relationship Specialty Start Date End Date Beau Enriquez MD [address] [place] [address] PCP - General Family Medicine 07/26/20 documented as of this encounter
--- OUTSIDE RECORDS SUMMARY | 2023-10-30 19:52 | External Medical Summary | Summary of Care ---
Author Name Unknown Organization [facility] Address [address] [place] [address] Phone [phone] Care Team Providers Care Coin Machine Mechanic Name Role Phone Beau Enriquez MD Primary Care Provider [phone] Reason for Visit * Reason Comments Dosage Adjustment Via Phone (anticoag Cl inic) Encounter Details Date Type Department Care Team (Late st Contact Info) Description 10/08/2023 7:30 AM EDT Pharmacy Neurology, [facility] [address] [place] [address] [place], Pharmacist Neurology [address] [place] [address] Migraine variant* Allergies Active Allergy [...] or cough 12 g 1 09/28/2023 Active Galcanezumab-gnlm 120 MG/ML Subcutaneous Solution Auto-injector [...] (Moderna) 03/17/2021 Pneumococcal Conjugate Vacci ne, 20-valent ([id number]) 11/02/2021 Pneumococcal Polysaccharide PPV23 (Pneumovax) 12/17/2010,03/21/2010(Deferred: Patient [...] this encounter Progress Notes * Miriam Ashraf, [facility] - 10/08/2023 1:12 PM EDT See telemed documented in this encounter Plan of Treatment Upcoming Encounters Date Type Department Care Team (Late st Contact Info) Description 12/20/2023 8:00 AM EDT Imaging Radiology [facility] [facility] [address] [place] [address] 01/03/2024 1:00 PM EDT Office Visit Gynecology/Obstetrics [facility] [address] [place] [address] Mckenzie Canseco PA-C [address] [facility] [place] [address] 01/19/2024 8:40 AM EDT Office Visit Neurology [facility] [address] [place] [address] Mad[place] Pickett PA-C [address] [place] [address] 02/07/2024 11:40 AM EDT Office Visit Family Practice [facility] [address] [place] [address] Beau Enriquez MD [address] [place] [address] Scheduled Procedures Name Priority Associated Diagnoses Date/Ti [...] migrainosus documented in this encounter Care Teams Coin Machine Mechanic Relationship Specialty Start Date End Date Beau Enriquez MD [address] [place] [address] PCP - General Family Medicine 07/26/20 documented as of this encounter
--- OUTSIDE RECORDS SUMMARY | 2023-10-30 19:52 | External Medical Summary | Summary of Care ---
Author Name Unknown Organization [facility] Address [address] [place] [address] Phone [phone] Care Team Providers Care Broomcorn Thresher Name Role Phone Beau Enriquez MD Primary Care Provider [phone] Reason for Visit * Reason Comments Follow Up Pt here for 6 month follow up, states she has a rebounding sinus infection Encounter Details Date Type Department Care Team (Latest Contact Info) Description 08/04/2023 10:40 AM EDT Office Visit Family Practice [facility] [address] [facility] [place] [address] Beau [facility]quez [facility] [address] [facility] [place] [address] Gastroesophageal reflux disease without esophagitis*; Fibromyalgia; Migraine variant; Irritable bowel syndrome with diarrhea; 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 Allergies Active Allergy Reactions Criticality Noted Date Comments Amoxicillin-Pot Clavulanate 08/28/19 22 Cat Dander 11/07/2004 Clarithromycin 11/19/2003 Fluoride Preparations 11/13/2021 abd pain Macrolides And Ketolides 05/05/2001 GI upset Sulfa Antibiotics 07/07/2000 hives documented as of this encounter (statuses as of 08/05/2023) Medications Medication Sig Dispensed Refills Start Date End Date Status ADVIL 200 MG PO TABS 2 tablets po q 4hrs prn fibromyalgia pain 0 Active Esomeprazole Magnesium 20 MG Oral Capsule Delayed ReleaseIndications :Gastroesophageal reflux disease, esophagitis presence not specified Take 1 Capsule by mouth in the morning. 1 hour before the first meal of the day Buys OTC. 90 Cap 3 09/22/2019 Active Combivent Respimat 20-100 MCG/ACT Inhalation Aerosol Solution (Ipratropium-Albut melanie) inhale 1 puff by mouth and INTO THE LUNGS four times a day if needed for wheezing or cough 12 g 1 07/01/2022 Active Multivitamin Gummies Womens Oral Tablet Chewable Take by mouth. 0 Active Premarin 0.625 MG/GM Vaginal Cream (Estrogens Conjugated)Indicat ions:Atrophy of vulva Apply 0.5g twice a week 42.5 g 6 11/09/2022 Active Fluticasone-Salmet melanie 250-50 MCG/ACT Inhalation Aerosol Powder Breath Activated [...] 04/29/2023 Active Ondansetron HCl 4 MG Oral TabletIndications: Migraine variant Take 1 Tablet by mouth every [...] Active Dicyclomine HCl 10 MG Oral Capsule (Bentyl)Indication s:Abdominal migraine, not intractable take 1 capsule by mouth every morning 1 capsule AT 12PM and 1 capsule at bedtime if needed for abdominal pain 90 Capsule 3 05/24/2023 Active Galcanezumab-gnlm 120 MG/ML Subcutaneous Solution Auto-injector (Emgality) 2 injections the first month and then 1 injection there after 2 mL 0 07/13/2023 Active Emgality 120 MG/ML Subcutaneous Solution Auto-injector (Galcanezumab-gn ) 1 injection every month after the first month. 1 mL 3 07/13/2023 Active Ciprofloxacin HCl 500 MG Oral Tablet (Cipro) Take 1 Tablet by mouth in the morning and 1 Tablet before bedtime. Do all this for 10 days. 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 Gastroesophageal reflux disease without esophagi tis 08/04/2020 Irritable bowel syndrome with diarrhea Fibromyalgia documented as of this encounter (statuses as of 08/05/2023) Resolved Problems Problem Noted Date Diagnosed Date [...] as of this encounter (statuses as of 08/05/2023) Immunizations Name Administration Dates Next Due COVID-19 mRNA, LNP-s, No Pre serve, 2-Dose Series (Moderna) 08/14/2020,07/17/2020 COVID-19, mRNA, LNP-s, PF, B ooster, 100mcg/0.5mg (Moderna) 03/17/2021 Pneumococcal Conjugate Vacci ne, 20-valent ([id number]) 11/02/2021 Pneumococcal Polysaccharide PPV23 (Pneumovax) 12/17/2010,03/21/2010(Deferred: Patient [...] Sign Reading Time Taken Comments Blood Pressure 120/72 08/04/2023 10:48 AM EDT Pulse 82 08/04/2023 10:48 AM EDT Temperature 36.4 C (97.5 F) 08/04/2023 10:48 AM E DT Respiratory Rate 18 08/04/2023 10:48 AM EDT Oxygen Saturation 99% 08/04/2023 10:48 AM EDT Inhaled Oxygen Concentration - - Weight 61.2 kg (135 lb) 08/04/2023 10:48 AM EDT Height 158.8 cm (5' 2.5") 08/04/2023 10:48 AM ED T Body Mass Index 24.3 08/04/2023 10:48 AM EDT documented in this encounter Progress Notes * Beau Enriquez MD - 08/05/2023 3:50 PM EDT SUBJECTIVE: Sherri Coulter is a 63 year old female. Chief Complaint Patient presents with Follow Up Pt here for 6 month follow up, states she has a rebounding sinus infection HPI: Would like cipro for sinus infection. Doing well overall. The emgality cured her fibromyalgia. It also helps tremendously with her migraines. She keeps very close track of her health in terms of her gut health. Health maintenance items addressed. Overall she feels well and is exercising. Patient Active Problem List Diagnosis Code Irritable bowel syndrome with diarrhea K58.0 Fibromyalgia M79.7 Gastroesophageal reflux disease without esophagitis K21.9 Short gut syndrome K90.829 Vaginal atrophy N95.2 Migraine variant G43.809 Current Outpatient Medications Medication Sig Dispense Refill Esomeprazole Magnesium 20 MG Oral Capsule Delayed Release Take 1 Capsule by mouth in the morning. 1hour before the first meal of the day Buys OTC. 90 Cap 3 Combivent Respimat 20-100 MCG/ACT Inhalation Aerosol Solution (Ipratropium- Albuterol) inhale 1 puffby mouth and INTO THE LUNGS four times a day if needed for wheezing or cough 12 g 1 Multivitamin Gummies Womens Oral Tablet Chewable Take by mouth. Premarin 0.625 MG/GM Vaginal Cream (Estrogens Conjugated) Apply 0.5g twice a week 42.5 g 6 Fluticasone-Salmeterol 250-50 MCG/ACT Inhalation Aerosol Powder Breath Activated (Wixela Inhub) Inhale 1 Puff by mouth in the morning and 1 Puff before bedtime. 60 Each 12 Colestipol HCl 1 GM Oral Tablet (Colestid) 1-2 tabs once daily. 30 Tablet 12 Fluticasone Propionate 50 MCG/ACT Nasal Suspension (Flonase) instill 2 sprays into each nostril once daily 48 g 3 Amitriptyline HCl 25 MG Oral Tablet (Elavil) take 2 tablets by mouth at bedtime 60 Tablet 5 Ondansetron HCl 4 MG Oral Tablet Take 1 Tablet by mouth every 12 hours as needed for Nausea. 30 Tablet 0 Rizatriptan Benzoate 10 MG Oral Tablet (Maxalt) TAKE 1 TABLET BY MOUTH AT ONSET OF MIGRAINE NEEDED. MAY REPEAT EVERY 2 HOURS UP TO 2 TIMES. DO NOT EXCEED 3 TABLETS PER 24 HOURS Strength: 10 mg 20 Tablet 3 Dicyclomine HCl 10 MG Oral Capsule (Bentyl) take 1 capsule by mouth every morning 1 capsule AT 12PMand 1 capsule at bedtime if needed for abdominal pain 90 Capsule 3 Emgality 120 MG/ML Subcutaneous Solution Auto-injector (Galcanezumab-gnlm) 1 injection every month after the first month. 1 mL 3 Ciprofloxacin HCl 500 MG Oral Tablet (Cipro) Take 1 Tablet by mouth in the morning and 1 Tablet before bedtime. Do all this for 10 days. 20 Tablet 1 ADVIL 200 MG PO TABS 2 tablets po q 4hrs prn fibromyalgia pain Galcanezumab-gnlm 120 MG/ML Subcutaneous Solution Auto-injector (Emgality) 2 injections the first month and then 1 injection there after 2 mL 0 No current facility-administered medications for this visit. Allergy: Review of patient's allergies indicates: Allergen Reactions Augmentin [Amoxicillin-Pot Clavulanate] Cat Dander Clarithromycin Fluoride Preparations abd pain Macrolides And Ketolides GI upset Sulfa Antibiotics hives OBJECTIVE: BP 120/72 | Pulse 82 | Temp 36.4 C (97.5 F) (Tympanic) | Resp 18 | Ht 1.588 m (5' 2.5") | Wt 61.2 kg (135 lb) | LMP 07/08/2008 | SpO2 99% | BMI 24.30 kg/m | BSA 1.64 m General: alert, healthy, and no distress Head: Normocephalic, No masses, lesions, tenderness or abnormalities Neck: supple, no adenopathy, no bruits, thyroid normal size, non-tender, without nodularity Lungs: chest symmetric with normal AP diameter, no chest deformities noted, no chest wall tenderness, lungs clear to auscultation Heart: regular rate & rhythm, no murmur, and no gallops Abdomen: abdomen soft, non-tender, normal bowel sounds, and no masses or organomegaly Neuro Exam: alert & oriented x 3 with fluent speech, no focal motor/sensory deficits, gait normal, reflexes normal and symmetric Skin: skin color, texture, turgor are normal, no rashes or significant lesions ASSESSMENT AND PLAN: (K21.9) Gastroesophageal reflux disease without esophagitis (primary encounter diagnosis) Plan: stable (M79.7) Fibromyalgia Plan: cured by emgality by report (G43.809) Migraine variant Plan: continue emgality (K58.0) Irritable bowel syndrome with diarrhea Plan: follows with GI (K90.821) 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 No other complaints were offered at this time. Beau Enriquez MD documented in this encounter Plan of Treatment Upcoming Encounters Date Type Department Care Team (Late st Contact Info) Description 10/13/2023 11:30 AM EDT Office Visit Gastroenterology, [facility] [address] [place] [address] Scott Jarrell CRNP [address] [facility] [place] [address] 12/20/2023 8:00 AM EDT Imaging Radiology [facility] 1st [facility] [address] [place] [address] 01/03/2024 1:00 PM EDT Office Visit Gynecology/Obstetrics [facility] [address] [facility] [place] [address] Mckenzie Canseco PA-C [address] [facility] [place] [address] 01/19/2024 8:40 AM EDT Office Visit Neurology [facility] [place] [address] Madelin Pickett PA-C [address] [facility] [place] [address] 02/07/2024 11:40 AM EDT Office Visit Family Practice [facility] [address] [address] Beau Enriquez MD [address] [place] [address] Scheduled Procedures Name Priority Associated Diagnoses Date/Ti [...] as of this encounter Visit Diagnoses Diagnosis Gastroesophageal reflux disease without esophagitis- Primary Esophageal reflux Fibromyalgia Mylagia and myositis, unspecified Migraine variant Variants of migraine, not elsewhere classified, without mention of intractable migraine without mention of status migrainosus Irritable bowel syndrome with diarrhea Irritable bowel syndrome 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
--- OUTSIDE RECORDS SUMMARY | 2023-10-30 19:53 | External Medical Summary | Summary of Care ---
Author Name Unknown Organization [facility] Address [address] [place] [address] Phone [phone] Care Team Providers Care Body Stylist Name Role Phone Beau Enriquez MD Primary Care Provider [phone] Reason for Visit * Reason Onset Date Comments Other 07/22/2023 Encounter Details Date Type Department Care Team (Late st Contact Info) Description 07/22/2023 Telephone Neurology [facility] [address] [place] [address] Madelin Pickett PA-C [address] [place] [address] Other Allergies Active Allergy Reactions Criticality Noted Date Comments Amoxicillin-Pot Clavulanate 08/28/19 22 Cat Dander 11/07/2004 Clarithromycin 11/19/2003 Fluoride Preparations 11/13/2021 abd pain Macrolides And Ketolides 05/05/2001 GI upset Sulfa Antibiotics 07/07/2000 hives documented as of this encounter (statuses as of 07/22/2023) Medications Medication Sig Dispensed Refills Start Date [...] as of this encounter (statuses as of 07/22/2023) Active Problems Problem Noted Date Diagnosed Date Migraine variant 10/22/2020 Vaginal atrophy 08/09/2020 Mild persistent asthma without complication 07/10 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/07/2020 Gastroesophageal reflux disease without esophagi tis 08/04/2020 Irritable bowel syndrome with diarrhea Fibromyalgia documented as of this encounter (statuses as of 07/22/2023) Resolved Problems Problem Noted Date Diagnosed Date [...] as of this encounter (statuses as of 07/22/2023) Immunizations Name Administration Dates Next Due COVID-19 mRNA, LNP-s, No Pre serve, 2-Dose Series (Moderna) 08/14/2020,07/17/2020 COVID-19, mRNA, LNP-s, PF, B ooster, 100mcg/0.5mg (Moderna) 03/17/2021 Pneumococcal Conjugate Vacci ne, 20-valent ([id number]) 11/02/2021 Pneumococcal Polysaccharide PPV23 (Pneumovax) 12/17/2010,03/21/2010(Deferred: Patient [...] Never Comments:started smoking age 18, as of 2 "cutting bk, now down to 1/2 pk [...] encounter Miscellaneous Notes * Telephone Encounter - Ewa Horton, MED ASSIST - 07/22/2023 9:26 AM EDT ----- Message from Madelin Pickett PA-C sent at 07/22/2023 8:03 AM EDT ----- Regarding: emgality Please contact patient regarding help with first injections. Thank you Madelin Pickett PA-C 07/22/2023 8:04 AM documented in this encounter Plan of Treatment Upcoming Encounters Date Type Department Care Team (Late st Contact Info) Description 08/04/2023 10:40 AM EDT Office Visit Family Practice [facility] [address] [place] [place] [address] Beau Enriquez MD [address] [place] [address] 10/13/2023 11:30 AM EDT Office [facility], [facility] [place] [address] Scott Jarrell CRNP [address] [place] [address] 12/20/2023 8:00 AM EDT Imaging Radiology [facility] 1st [facility] [address] [place] [address] 01/03/2024 1:00 PM EDT Office Visit Gynecology/Obstetrics [facility] [address] [facility] [place] [address] Mckenzie Canseco PA-C [address] [place] [address] 01/19/2024 8:40 AM EDT Office Visit Neurology [facility] [address] [place] [address] Madelin Pickett PA-C [address] [place] [address] Scheduled Procedures Name Priority Associated Diagnoses Date/Ti me COLONOSCOPY FLEXIBLE PROXIMAL DIAGNOSTIC Recall History of colon polyps Health Maintenance Due Date Last Done Comments HPV/Co-Test 02/27/1990 Depression Screening 08/07/2021 08/07/2020 *SPIROMETRY ONCE FOR ASTHMA-ADULT 02/05/2022 COVID-19 Vaccine (4 - 2023-24 season) 2023 03/17/2021, 08/14/2020, 07/17/2020 Influenza Vaccine [...] filedocumented as of this encounter Care Teams Body Stylist Relationship Specialty Start Date End Date Beau Enriquez MD [address] [place] [address] PCP - General Family Medicine 07/26/20 documented as of this encounter
--- OUTSIDE RECORDS SUMMARY | 2023-10-30 19:53 | External Medical Summary | Summary of Care ---
Author Name Unknown Organization [facility] Address [address] [place] [address] Phone [phone] Care Team Providers Care Engineering Geologist Name Role Phone Jaime Still MD Primary Care Provider [phone] Reason for Visit * Reason Comments eRx-Medication Refill Encounter Details Date Type Department Care Team (Late st Contact Info) Description 05/22/2023 Refill Family Practice [facility] [address] [place] [address] Jaime Still MD [address] [place] [address] Abdominal migraine, not intractable Allergies Active Allergy Reactions Criticality Noted Date Comments Amoxicillin-Pot Clavulanate 08/28/19 22 Cat Dander 11/07/2004 Clarithromycin 11/19/2003 Fluoride Preparations 11/13/2021 abd pain Macrolides And Ketolides 05/05/2001 GI upset Sulfa Antibiotics 07/07/2000 hives documented as of this encounter (statuses as of 05/24/2023) Medications Medication Sig Dispensed Refills Start Date [...] a week 42.5 g 6 11/09/2022 Active predniSONE 20 MG Oral Tablet (Deltasone) Take 4 tabs daily for 2 days, 3 tabs daily for 2 days, 2 tabs daily for 2 days, 1 tab daily for 2 days 20 Tablet 3 02/02/2023 Active Fluticasone-Salm eterol 250-50 MCG/ACT Inhalation Aerosol [...] 04/29/2023 Active Ondansetron HCl 4 MG Oral TabletIndication [...] abdominal pain 90 Capsule 3 05/24/2023 Active Dicyclomine HCl 10 MG Oral Capsule (Bentyl)Indicati ons:Abdominal migraine, not intractable take 1 capsule by mouth every morning 1 capsule AT 12PM and 1 capsule at bedtime if needed for abdominal pain 90 Capsule 3 02/04/2023 05/24/19 24 Discontinued documented as of this encounter (statuses as of 05/24/2023) Active Problems Problem Noted Date Diagnosed Date Migraine variant 10/22/2020 Vaginal atrophy 08/09/2020 Mild persistent asthma without complication 07/10 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/07/2020 Gastroesophageal reflux disease without esophagi tis 08/04/2020 Irritable bowel syndrome with diarrhea Fibromyalgia documented as of this encounter (statuses as of 05/24/2023) Resolved Problems Problem Noted Date Diagnosed Date [...] as of this encounter (statuses as of 05/24/2023) Immunizations Name Administration Dates Next Due COVID-19 mRNA, LNP-s, No Pre serve, 2-Dose Series (Moderna) 08/14/2020,07/17/2020 COVID-19, mRNA, LNP-s, PF, B ooster, 100mcg/0.5mg (Moderna) 03/17/2021 Pneumococcal Conjugate Vacci ne, 20-valent ([id number]) 11/02/2021 Pneumococcal Polysaccharide PPV23 (Pneumovax) 12/17/2010,03/21/2010(Deferred: Patient [...] Date Smoking Tobacco: Former Cigarettes 0.5 32 Q uit: 04/04/2015 Smokeless Tobacco: Never Comments:started smoking age [...] encounter Miscellaneous Notes * Telephone Encounter - Jaime Still MD - 05/24/2023 10:25 AM ESTSigned Prescriptions: Disp Refills Dicyclomine HCl 10 MG Oral Capsule (Bentyl)90 Cap*3 Sig: take 1 capsule by mouth every morning 1 capsule AT 12PM and 1 capsule at bedtime if needed for abdominal painAuthorizing Provider: JAIME STILL * Telephone Encounter - Leslie Yee, [facility] - 05/24/2023 9:46 AM ESTPending Prescriptions: Disp Refills Dicyclomine HCl 10 MG Oral Capsule [Pharma*90 Cap*3 Sig: take 1 capsule by mouth every morning 1 capsule AT 12PM and 1 capsule at bedtime if needed for abdominal pain * Telephone Encounter - Leslie Yee, [facility] - 05/24/2023 9:46 AM EST [facility] is currently not authorized to approve refills for the pended medication(s) per refill protocol. Please approve if appropriate. Did you pend patient's preferred pharmacy and medication before forwarding?yes Pharmacy: [id number] Pending Prescriptions: Disp Refills Dicyclomine HCl 10 MG Oral Capsule [Pharma*90 Cap*3 Sig: take 1 capsule by mouth every morning 1 capsule AT 12PM and 1 capsule at bedtime if needed for abdominal pain Last Visit: 04/07/2023 (in office), 05/30/2020 (telemedicine) Next Visit: 08/04/2023 If no future appointments scheduled, and last appointment is greater than a year ago, please schedule patient for a follow-up appointment Last date the medication was ordered: 02/04/23 Is this request for a controlled substance?No Urine Drug Screen:No results found for this or any previous visit. Patient Phone Numbers Labs: Lab Results Component Value Date/Time CREAT 1.20 05/10/2022 12:00 AM CREAT 0.7 12/19/2010 07:24 AM POTASSIUM 3.6 05/10/2022 12:00 AM POTASSIUM 4.5 12/19/2010 07:24 AM LDLCALC 152 (H) 07/15/2022 08:18 AM LDLCALC 112 01/23/2017 08:02 AM ALT 12 12/19/2010 07:24 AM HGBA1C 5.6 07/15/2022 08:18 AM Thank you, Leslie Yee, PharmD Clinical Pharmacist [facility] 05/24/23 9:46 AM [phone] documented in this encounter Plan of Treatment Upcoming Encounters Date Type Department Care Team (Late st Contact Info) Description 07/13/2023 2:00 PM EST Office Visit Neurology [facility] [address] [facility] [place] [address] Madelin Pickett PA-C [facility] [place] [address] 07/30/2023 10:00 AM EDT Office Visit Gastroenterology, [facility] [address] [place] [address] Scott Jarrell CRNP [address] [place] [address] 08/04/2023 10:40 AM EDT Office Visit Family Practice [facility] [address] [place] [address] Jaime Still MD [address] [place] [address] 12/20/2023 8:00 AM EDT Imaging Radiology [facility] [address] [facility] [place] [address] [place] [address] 01/03/2024 1:00 PM EDT Office Visit Gynecology/Obstetrics [facility] [address] [place] [address] Mckenzie Canseco PA-C [address] [place] [address] Scheduled Procedures Name Priority Associated Diagnoses Date/Ti [...] as of this encounter Visit Diagnoses Diagnosis Abdominal migraine, not intractable Variants of migraine, not elsewhere classified, without mention of intractable migraine without mention of status migrainosus documented in this encounter Care Teams Engineering Geologist Relationship Specialty Start Date End Date Jaime Still MD [address] [facility] [place] [address] PCP - General Family Medicine 07/26/20 documented as of this encounter
--- OUTSIDE RECORDS SUMMARY | 2023-10-30 19:53 | External Medical Summary | Summary of Care ---
Author Name Unknown Organization [facility] Address [address] [place] [address] Phone [phone] Care Team Providers Care Creative Writing Professor Name Role Phone Beau Enriquez MD Primary Care Provider [phone] Reason for Visit * Reason Comments Follow Up Migraine Headache Encounter Details Date Type Department Care Team (Late st Contact Info) Description 07/13/2023 2:00 PM EST Office Visit Neurology [facility] [address] [place] [address] Madelin Pickett PA-C 200 [facility] [place] [address] Migraine variant*; Abdominal migraine, not intractable Allergies Active Allergy Reactions Criticality Noted Date Comments Amoxicillin-Pot Clavulanate 08/28/19 22 Cat Dander 11/07/2004 Clarithromycin 11/19/2003 Fluoride Preparations 11/13/2021 abd pain Macrolides And Ketolides 05/05/2001 GI upset Sulfa Antibiotics 07/07/2000 hives documented as of this encounter (statuses as of 07/13/2023) Medications Medication Sig Dispensed Refills Start Date [...] for Nausea. 30 Tablet 0 4 Active Rizatriptan Benzoate 10 MG Oral Tablet (Maxalt) TAKE 1 TABLET BY MOUTH AT ONSET OF MIGRAINE NEEDED. MAY REPEAT EVERY 2 HOURS UP TO 2 TIMES. DO NOT EXCEED 3 TABLETS PER 24 HOURS Strength: 10 mg 20 Tablet 3 4 Active Dicyclomine HCl 10 MG Oral Capsule (Bentyl)Indicatio ns:Abdominal migraine, not intractable take 1 capsule by mouth every morning 1 capsule AT 12PM and 1 capsule at bedtime if needed for abdominal pain 90 Capsule 3 4 Active Galcanezumab-gnlm 120 MG/ML Subcutaneous Solution Auto-injector (Emgality) 2 injections the first month and then 1 injection there after 1 mL 0 4 Active Emgality 120 MG/ML Subcutaneous Solution Auto-injector (Galcanezumab-gnl m) 1 injection every month after the first month 1 mL 3 4 Active predniSONE 20 MG Oral Tablet (Deltasone) Take 4 tabs daily for 2 days, 3 tabs daily for 2 days, 2 tabs daily for 2 days, 1 tab daily for 2 days 20 Tablet 3 3 07/13/19 24 Discontinued documented as of this encounter (statuses as of 07/13/2023) Active Problems Problem Noted Date Diagnosed Date Migraine variant 10/22/2020 Vaginal atrophy 08/09/2020 Mild persistent asthma without complication 07/10 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/07/2020 Gastroesophageal reflux disease without esophagi tis 08/04/2020 Irritable bowel syndrome with diarrhea Fibromyalgia documented as of this encounter (statuses as of 07/13/2023) Resolved Problems Problem Noted Date Diagnosed Date [...] as of this encounter (statuses as of 07/13/2023) Immunizations Name Administration Dates Next Due COVID-19 mRNA, LNP-s, No Pre serve, 2-Dose Series (Moderna) 08/14/2020,07/17/2020 COVID-19, mRNA, LNP-s, PF, B ooster, 100mcg/0.5mg (Moderna) 03/17/2021 Pneumococcal Conjugate Vacci ne, 20-valent ([id number]) 11/02/2021 Pneumococcal Polysaccharide PPV23 (Pneumovax) 12/17/2010,03/21/2010(Deferred: Patient [...] Sign Reading Time Taken Comments Blood Pressure 134/88 07/13/2023 1:46 PM EST Pulse 97 07/13/2023 1:46 PM EST Temperature 36.9 C (98.5 F) 07/13/2023 1:46 PM ES T Respiratory Rate 16 07/13/2023 1:46 PM EST Oxygen Saturation 100% 07/13/2023 1:46 PM EST Inhaled Oxygen Concentration - - Weight 61.5 kg (135 lb 8 oz) 07/13/2023 1:46 PM EST Height - - Body Mass Index 24.39 02/02/2023 10:15 AM EDT documented in this encounter Progress Notes * Madelin Pickett PA-C - 07/13/2023 1:43 PM EST HISTORY & PHYSICAL EXAMINATION - NEUROLOGY Name: Sherri Coulter Date: 07/13/2023 Time: 1:43 PM Referring Provider: Beau Enriquez MD Chief Complaint: Chief Complaint Patient presents with Follow Up Migraine Headache This is a 63 year old right handed woman returns today for follow up for migraine headaches and abdominal headaches. 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 Over a year ago she started having abdominal pain, nausea and vomiting. She has seen GI and nutrition who worked her up for food issues and possible triggers for the abdominal pain. It gets very intense and can even wake her at night and she will vomit, and have diarrhea. GI wanted an evaluate her for abdominal migraines. She is a past smoker, minimal EtOH use, minimal caffeine use, no other drugs. 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 She was doing well on the amitriptyline 25 mg (2 tab). She went down to (1 tab) but she went to the ED with severe abdominal pain and vomiting, the amitriptyline is causing a lot of dry mouth issues. She is using the rizatriptan for the vestibular component of migraines and it is working well but recently is taking more. She had a flare of abdominal migraine with diarrhea but they are not as intense as in the past and the rizatriptan seems to help them. Nurtec was ordered but the insurance would not pay for it. She was snow blowing their driveway and that seemed to be a trigger. She has not been in the ER for over a year. She is having sick events when she is trying to fall asleep but no jerking. She then gets up for a while and then back to bed it does not reoccur. Denies CP, SOB, abdominal pain, one sided weakness, numbness tingling. I have reviewed the patient's medications and allergies, past medical, surgical, social and family history, updating these as appropriate. See Histories section of the electronic medical record for adisplay of this information. Patient Active Problem List Diagnosis Code Irritable bowel syndrome with diarrhea K58.0 Fibromyalgia M79.7 Gastroesophageal reflux disease without esophagitis K21.9 Mild persistent asthma without complication J45.30 Short gut syndrome K90.829 Vaginal atrophy N95.2 Migraine variant G43.809 Family History Problem Relation Age of Onset Gastro-intestinal disorder Mother 72 diverticultis Irritable Bowel Syndrome Mother 72 Stroke Father Heart disease Father No Known Problems Sister Breast Cancer No significant family history Medications: Are you taking your medications? yes Current Outpatient Medications Medication Sig Dispense Refill ADVIL 200 MG PO TABS 2 tablets po q 4hrs prn fibromyalgia pain Esomeprazole Magnesium 20 MG Oral Capsule Delayed [...] needed for abdominal pain 90 Capsule 3 Galcanezumab-gnlm 120 MG/ML Subcutaneous Solution Auto-injector (Emgality) 2 injections the first month and then 1 injection there after 1 mL 0 Emgality 120 MG/ML Subcutaneous Solution Auto-injector (Galcanezumab-gnlm) 1 injection every month after the first month 1 mL 3 predniSONE 20 MG Oral Tablet (Deltasone) Take 4 tabs daily for 2 days, 3 tabs daily for 2 days, 2 tabs daily for 2 days, 1 tab daily for 2 days 20 Tablet 3 No current facility-administered medications for this visit. Review of patient's allergies indicates: Allergen Reactions Augmentin [Amoxicillin-Pot Clavulanate] Cat Dander Clarithromycin Fluoride Preparations abd pain Macrolides And Ketolides GI upset Sulfa Antibiotics hives Review of Systems: A total number of 10 systems were reviewed pertinent negative and positives not addressed in HPI are listed in the following review. Physical Exam: Constitutional: BP 134/88 (BP Site: Right Arm, BP Position: Sitting, BP Cuff Size: Regular) | Pulse97 | Temp 36.9 C (98.5 F) (Tympanic) | Resp 16 | Wt 61.5 kg (135 lb 8 oz) | LMP 07/08/2008 | SpO2 100% | BMI 24.39 kg/m | BSA 1.65 m , appearance nourished, healthy, and normal Ears, Nose, Mouth and Throat: mucous membranes moist, no injection and skin normal, eyes normal Cardiovascular: normal S-1 and S-2 and regular rate and rhythm Respiratory: clear to auscultation (CTA) and no rales, ronchi or wheeze Musculoskeletal: no peripheral edema Skin: normal and intact Eyes: eyes normal and sclera clear and extraocular muscles intact (EOMI) NEUROLOGIC EXAMINATION: Mental status: Alert and interactive Oriented to full date and location Oriented to person Speech fluent with no evidence of aphasia Cranial Nerves Normal findings for Cranial Nerves II - XII Reflexes: Deep tendon reflexes were symmetrical and graded 2/5. Coordination: on [id number], no tremor resting or reaching Gait/Stance: Posture normal. Gait normal: with steady with steps, base, arm swing, and tandem gait. Motor: Negative for pronator drift of out stretched arms with eyes closed. Strength: Normal - 5/5 all extremities LABORATORY: Recent labs reviewed Review of prior Studies: No recent imaging available. Impression: Sherri Coulter is a 63 year old woman with a history of migraines and abdominal migraines. Her neurologic examination today reveals no new focal deficit. The history and examination are suggestive of diagnosis/problem list. Testing and Referrals ordered: none ICD-10-CM 1. Migraine variant G43.809 2. Abdominal migraine, not intractable G43.D0 Return in 6 months or sooner if needed Continue amitriptyline 25 mg (2 tab) hs Continue rizatriptan prn- would like to switch her to nurtec but insurance is not approving it Start emgality 120 mg (2 injections) the first month and then (1 injection) every month there after Call for an appointment once emgality is approved for a nursing appointment to help with the first injections Continue to follow with PCP Call with questions concerns Medical Decision Making (determined by lowest of 2 of 3 elements): The medical decision making element of the number and complexity of problems addressed included at least 1 or more chronic illnesses with exacerbation, progression, or side effects of treatment (level 4). The medical decision making element of risk of complications, morbidity, and mortality of patient management is moderate (level 4) due to prescription drug management (moderate risk). The medical decision making element of the amount and complexity of data reviewed and analyzed included an independent interpretation of a test (level 4 at least). When 2 of 3 reach level 4, then this element is considered extensive (level 5). I personally spent a total of 30 minutes. This time was for a new office or established visit and was on the same calendar day. Education / Consultation - Topics covered as I spent 20 minutes, which is greater than 50% of this visit, counseling the patient on: Diagnostic Results Prognosis Importance of compliance with chosen treatment options Risk factor reductions Patient and family education Consulted with physician: Xavi Sanchez DO was available for direct supervision. Copy of note sent to PCP and Referring Provider. Total time of visit: 30 minutes. Madelin Pickett PA-C Neurology [facility] [place] [address] 07/13/2023 1:43 PM documented in this encounter Nursing Notes * Caron Lees LPN - 07/13/2023 1:44 PM EST Patient verified identity by spelling of last name and date. Chief Complaint Patient presents with Follow Up Migraine Headache documented in this encounter Plan of Treatment Upcoming Encounters Date Type Department Care Team (Late st Contact Info) Description 08/04/2023 10:40 AM EDT Office Visit Family Practice [facility] [address] [place] [address] Beau Enriquez MD [address] [place] [address] 10/13/2023 11:30 AM EDT Office Visit Gastroenterology, [facility] [address] [place] [address] Scott Jarrell CRNP [address] [place] [address] 12/20/2023 8:00 AM EDT Imaging Radiology [facility] 1st Floor, [place] [address] [address] 01/03/2024 1:00 PM EDT Office Visit Gynecology/Obstetrics [facility] [address] [place] [address] Mckenzie Canseco PA-C [address] [place] [address] 01/19/2024 8:40 AM EDT Office Visit [facility] [place] [address] Madelin Pickett PA-C [address] [facility] [place] [address] Scheduled Procedures Name Priority Associated Diagnoses Date/Ti [...] intractable migraine without mention of status migrainosus Abdominal migraine, not intractable Variants of migraine, not elsewhere classified, without mention of intractable migraine without mention of status migrainosus documented in this encounter Care Teams Creative Writing Professor Relationship Specialty Start Date End Date Beau Enriquez MD [address] [facility] [place] [address] PCP - General Family Medicine 07/26/20 documented as of this encounter
--- OUTSIDE RECORDS SUMMARY | 2023-10-30 19:53 | External Medical Summary | Summary of Care ---
Author Name Unknown Organization [facility] Address [address] [place] [address] Phone [phone] Care Team Providers Care Raftsman Name Role Phone Beau Enriquez MD Primary Care Provider [phone] Reason for Visit * Reason Comments eRx-Medication Refill Encounter Details Date Type Department Care Team (Late st Contact Info) Description 05/11/2023 Refill Family Practice [facility] [address] [facility] [place] [id number] Beau Enriquez MD [address] [place] [address] Migraine variant Allergies Active Allergy Reactions Criticality Noted Date Comments Amoxicillin-Pot Clavulanate 08/28/19 22 Cat Dander 11/07/2004 Clarithromycin 11/19/2003 Fluoride Preparations 11/13/2021 abd pain Macrolides And Ketolides 05/05/2001 GI upset Sulfa Antibiotics 07/07/2000 hives documented as of this encounter (statuses as of 05/12/2023) Medications Medication Sig Dispensed Refills Start Date [...] 2 days 20 Tablet 3 02/02/2023 Active Dicyclomine HCl 10 MG Oral Capsule (Bentyl)Indicatio ns:Abdominal migraine, not intractable take 1 capsule by mouth every morning 1 capsule AT 12PM and 1 capsule at bedtime if needed for abdominal pain 90 Capsule 3 02/04/2023 Active Fluticasone-Salme terol 250-50 MCG/ACT Inhalation Aerosol [...] as needed for Nausea. 30 Tablet 0 04/07/2023 Active Amitriptyline HCl 25 MG Oral Tablet (Elavil) take 2 tablets by mouth at bedtime 60 Tablet 5 04/29/2023 Active Rizatriptan Benzoate 10 MG Oral Tablet (Maxalt) TAKE 1 TABLET BY MOUTH AT ONSET OF MIGRAINE NEEDED. MAY REPEAT EVERY 2 HOURS UP TO 2 TIMES. DO NOT EXCEED 3 TABLETS PER 24 HOURS Strength: 10 mg 20 Tablet 3 02/02/2023 4 Discontinue d(Refill) documented as of this encounter (statuses as of 05/12/2023) Active Problems Problem Noted Date Diagnosed Date Migraine variant 10/22/2020 Vaginal atrophy 08/09/2020 Mild persistent asthma without complication 07/10 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/07/2020 Gastroesophageal reflux disease without esophagi tis 08/04/2020 Irritable bowel syndrome with diarrhea Fibromyalgia documented as of this encounter (statuses as of 05/12/2023) Resolved Problems Problem Noted Date Diagnosed Date [...] as of this encounter (statuses as of 05/12/2023) Immunizations Name Administration Dates Next Due COVID-19 mRNA, LNP-s, No Pre serve, 2-Dose Series (Moderna) 08/14/2020,07/17/2020 COVID-19, mRNA, LNP-s, PF, B ooster, 100mcg/0.5mg (Moderna) 03/17/2021 Pneumococcal Conjugate Vacci ne, 20-valent ([id number]) 11/02/2021 Pneumococcal Polysaccharide PPV23 (Pneumovax) 12/17/2010,03/21/2010(Deferred: Patient [...] encounter Miscellaneous Notes * Telephone Encounter - Teri Patel, [facility] - 05/12/2023 2:52 PM EST Refused Prescriptions: Disp Refills Ondansetron HCl 4 MG Oral Tablet (Zofran) 30 Tab*0 Sig: take 1tablet by mouth every 12 hours if needed for nauseaRefused By: TERI PATEL for Refusal: Duplicate Request documented in this encounter Plan of Treatment Upcoming Encounters Date Type Department Care Team (Late st Contact Info) Description 07/13/2023 2:00 PM EST Office Visit Neurology [facility] [address] [facility] [place] [address] Madelin Pickett PA-C [address] [facility] [place] [address] 07/30/2023 10:00 AM EDT Office Visit Gastroenterology, [facility] [address] [place] [address] Scott Jarrell CRNP [address] [place] [address] 08/04/2023 10:40 AM EDT Office Visit Family Practice [facility] [address] [place] [address] Beau Enriquez MD [address] [place] [address] 12/20/2023 8:00 AM EDT Imaging Radiology [facility] 1st [facility] [address] [place] [address] 01/03/2024 1:00 PM EDT Office Visit Gynecology/Obstetrics [facility] [address] [place] [address] Mckenzie Canseco PA-C [address] [place] [address] Scheduled Procedures Name Priority Associated Diagnoses Date/Ti [...] of this encounter Visit Diagnoses Diagnosis Migraine variant Variants of migraine, not elsewhere classified, without mention of intractable migraine without mention of status migrainosus documented in this encounter Care Teams Raftsman Relationship Specialty Start Date End Date Beau Enriquez MD [address] [place] [address] PCP - General Family Medicine 07/26/20 documented as of this encounter
--- OUTSIDE RECORDS SUMMARY | 2023-10-30 19:53 | External Medical Summary | Summary of Care ---
Author Name Unknown Organization [facility] Address [address] [place] [address] Phone [phone] Care Team Providers Care Senior Product Integrity Engineer Name Role Phone Jaime Still MD Primary Care Provider [phone] Reason for Visit * Reason Onset Date Comments Medication Refill 05/11/2023 Encounter Details Date Type Department Care Team (Late st Contact Info) Description 05/11/2023 Refill Family Practice [facility] [address] [facility] [place] [address] Jaime Still MD [address] [facility] [place] [address] Migraine variant Allergies Active Allergy Reactions [...] 04/29/2023 Active Ondansetron HCl 4 MG Oral TabletIndications [...] 20 Tablet 3 02/02/2023 4 Discontinue d(Refill) Ondansetron HCl 4 MG Oral TabletIndications :Migraine variant Take 1 Tablet by mouth every 12 hours as needed for Nausea. 30 Tablet 0 04/07/2023 Discontinue d(Refill) documented as of this encounter [...] (Moderna) 03/17/2021 Pneumococcal Conjugate Vacci ne, 20-valent ([id number]) 11/02/2021 Pneumococcal Polysaccharide PPV23 (Pneumovax) 12/17/2010,03/21/2010(Deferred: Patient [...] Telephone Encounter - Jaime Still MD - 05/12/2023 3:44 PM ESTSigned Prescriptions: Disp Refills Ondansetron HCl 4 MG Oral Tablet 30 Tab*0 Sig: Take 1 Tablet by mouth every 12 hours as needed for Nausea. Authorizing Provider: JAIME STILL * Telephone Encounter - Leticia Severino [facility] - 05/12/2023 2:56 PM EST Pending Prescriptions: Disp Refills Ondansetron HCl 4 MG Oral Tablet 30 Tab*0 Sig: Take 1 Tablet by mouth every 12 hours as needed for Nausea. * Telephone Encounter - Leticia Severino [facility] - 05/12/2023 2:55 PM EST Unable to authorize medication refills for pended medication(s) at this time. Part of the protocol criteria used for refill authorization was not satisfied. Patient concurrently taking Amitriptyline & Rizatriptan which may cause increased risk of QT prolongation given with Ondansetron. Please approve if appropriate. Thank you, Leticia Severino, PharmD, SUSAN Clinical Pharmacist [facility] ([facility]) (formerly Telepharmacy) 05/12/23 2:56 PM [phone] documented in this encounter Plan of Treatment Upcoming Encounters Date Type Department Care Team (Late st Contact Info) Description 07/13/2023 2:00 PM EST Office Visit [facility]rology [facility] [address] [place] [address] Madelin Pickett PA-C [address] [place] [address] 07/30/2023 10:00 AM EDT Office Visit Gastroenterology, [facility] 132 [facility] [place] [address] Scott Jarrell CRNP 132 [place] [address] 08/04/2023 10:40 AM EDT Office Visit Family Practice [facility] [address] [facility] [place] [address] Jaime Still MD 132 [facility] [place] [address] 12/20/2023 8:00 AM EDT Imaging Radiology [facility] 1st [facility] [place] [address] 01/03/2024 1:00 PM EDT Office Visit Gynecology/Obstetrics [facility] 132 [facility] [place] [address] Mckenzie Canseco PA-C 132 [facility] [place] [address] Scheduled Procedures Name Priority Associated Diagnoses Date/Ti [...] migrainosus documented in this encounter Care Teams Senior Product Integrity Engineer Relationship Specialty Start Date End Date Jaime Still MD [address] [place] [address] PCP - General Family Medicine 07/26/20 documented as of this encounter
--- OUTSIDE RECORDS SUMMARY | 2023-10-30 19:53 | External Medical Summary | Summary of Care ---
Author Name Unknown Organization [facility] Address [address] [place] [address] Phone [phone] Care Team Providers Care Steel Checker Name Role Phone Jaime Still MD Primary Care Provider [phone] Reason for Visit * Reason Onset Date Comments Medication Refill 05/11/2023 Encounter Details Date Type Department Care Team (Late st Contact Info) Description 05/11/2023 Refill Family Practice [facility] [address] [facility] [place] [address] Jaime Still MD [address] [facility] [place] [address] Allergies Active Allergy Reactions [...] 10 mg 20 Tablet 3 05/12/2023 Active Rizatriptan Benzoate 10 MG Oral Tablet (Maxalt) TAKE 1 TABLET BY MOUTH AT ONSET OF MIGRAINE NEEDED. MAY REPEAT EVERY 2 HOURS UP TO 2 TIMES. DO NOT EXCEED 3 TABLETS PER 24 HOURS Strength: 10 mg 20 Tablet 3 02/02/2023 Discontinue d(Refill) documented as of this encounter [...] (Moderna) 03/17/2021 Pneumococcal Conjugate Vacci ne, 20-valent ([id number]) 11/02/2021 Pneumococcal Polysaccharide PPV23 (Pneumovax) 12/17/2010,03/21/2010(Deferred: Patient [...] Miscellaneous Notes * Telephone Encounter - Teri Patel [facility] - 05/12/2023 2:57 PM EST Signed Prescriptions: Disp Refills Rizatriptan Benzoate 10 MG Oral Tablet (Ma*20 Tab*3 Sig: TAKE 1 TABLET BY MOUTH AT ONSET OF MIGRAINE NEEDED. MAY REPEAT EVERY 2 HOURS UP TO 2 TIMES. DO NOT EXCEED 3 TABLETS PER 24 HOURS Strength: 10 mgAuthorizing Provider: JAIME STILL User: TERI PATEL documented in this encounter Plan of Treatment Upcoming Encounters Date Type Department Care Team (Late st Contact Info) Description 07/13/2023 2:00 PM EST [facility] Visit [facility] [place] [address] Madelin Pickett PA-C [facility] [place] [address] 07/30/2023 10:00 AM EDT Office Visit Gastroenterology, [facility] [address] [place] [address] Scott Jarrell CRNP [address] [place] [address] 08/04/2023 10:40 AM EDT Office Visit Family Practice [facility] [address] [place] [address] Jaime Still MD [address] [place] [address] 12/20/2023 8:00 AM EDT Imaging Radiology [facility] 1st [facility] [address] [place] [address] 01/03/2024 1:00 PM EDT Office Visit Gynecology/Obstetrics [facility] [address] [place] [address] Mckenzie Canseco PA-C [address] [place] [address] Scheduled Procedures Name Priority Associated Diagnoses Date/Ti [...] filedocumented as of this encounter Care Teams Steel Checker Relationship Specialty Start Date End Date Jaime Still MD [address] [place] [address] PCP - General Family Medicine 07/26/20 documented as of this encounter
--- OUTSIDE RECORDS SUMMARY | 2023-10-30 19:53 | External Medical Summary | Summary of Care ---
Author Name Unknown Organization [facility] Address [address] [place] [address] Phone [phone] Care Team Providers Care Coordinate Measuring Equipment Operator Name Role Phone Beau Enriquez MD Primary Care Provider [phone] Encounter Details Date Type Department Care Team (Late st Contact Info) Description 07/22/2023 2:00 PM EDT Nurse Only Neurology [facility] [address] [place] [address] Natalie, Nurse Neurology [facility] 200 [facility] [place] [address] Arrived Allergies Active Allergy Reactions Criticality Noted Date [...] (Moderna) 03/17/2021 Pneumococcal Conjugate Vacci ne, 20-valent ([id number]) 11/02/2021 Pneumococcal Polysaccharide PPV23 (Pneumovax) 12/17/2010,03/21/2010(Deferred: Patient [...] on file documented as of this encounter Nursing Notes * Tracy Roberts LPN - 07/22/2023 2:04 PM EDT Patient came in for Emgality administration demonstration. Taught her with the demonstration pen how to inject herself. She then cleaned her sites with alcohol and administered herself with her 2 initial injections. She did very well and was thankful for the education on administration. Stated she feels comfortable enough to continue to do the injections herself at home. documented in this encounter Plan of Treatment Upcoming Encounters Date Type Department Care Team (Late st Contact Info) Description 08/04/2023 10:40 AM EDT Office Visit Family Practice [facility] [address] [place] [address] Beau Enriquez MD [address] [place] [address] 10/13/2023 11:30 AM EDT Office Visit Gastroenterology, [facility] [address] [place] [address] Scott Jarrell CRNP [address] [place] [address] 12/20/2023 8:00 AM EDT Imaging Radiology [facility] 1st Floor, [place] [address] [place] [address] 01/03/2024 1:00 PM EDT Office Visit Gynecology/Obstetrics [facility] 132 [facility] [place] [address] Mckenzie Canseco PA-C [address] [place] [address] 01/19/2024 8:40 AM EDT Office Visit Neurology [facility] 200 [facility] [place] [address] Madelin Pickett PA-C [address] [facility] [place] [address] Scheduled Procedures Name Priority Associated Diagnoses Date/Ti [...] filedocumented as of this encounter Care Teams Coordinate Measuring Equipment Operator Relationship Specialty Start Date End Date Beau Enriquez MD [address] [place] [address] PCP - General Family Medicine 07/26/20 documented as of this encounter
--- OUTSIDE RECORDS SUMMARY | 2023-10-30 19:53 | External Medical Summary | Summary of Care ---
Author Name Unknown Organization [facility] Address [address] [place] [address] Phone [phone] Care Team Providers Care Copier And Printer Field Technician Name Role Phone Beau Enriquez MD Primary Care Provider [phone] Reason for Visit * Reason Onset Date Comments Other 07/22/2023 Encounter Details Date Type Department Care Team (Late st Contact Info) Description 07/22/2023 Telephone Neurology [facility] [address] [place] [address] Madelin Pickett PA-C [address] [place] [address] Other Allergies Active Allergy Reactions Criticality Noted [...] (Moderna) 03/17/2021 Pneumococcal Conjugate Vacci ne, 20-valent ([id number]) 11/02/2021 Pneumococcal Polysaccharide PPV23 (Pneumovax) 12/17/2010,03/21/2010(Deferred: Patient [...] 07/22/2023 2:00 PM EDT Nurse Only Neurology [facility] [address] [place] [address] Natalie, Nurse Neurology [facility] [address] [place] [address] 08/04/2023 10:40 AM EDT Office Visit Family Practice [facility] [address] [place] [address] Beau Enriquez MD [address] [place] [address] 10/13/2023 11:30 AM EDT Office Visit Gastroenterology, [facility] [address] [place] [address] Scott Jarrell CRNP [address] [place] [address] 12/20/2023 8:00 AM EDT Imaging Radiology [facility] 1st [facility] [address] [place] [address] 01/03/2024 1:00 PM EDT Office Visit Gynecology/Obstetrics [facility] [address] [place] [address] Mckenzie Canseco PA-C [address] [place] [address] 01/19/2024 8:40 AM EDT Office Visit Neurology [facility] [address] [place] [address] Madelin Pickett PA-C [address] [place] [address] Scheduled Procedures Name Priority Associated Diagnoses Date/Ti [...] filedocumented as of this encounter Care Teams Copier And Printer Field Technician Relationship Specialty Start Date End Date Beau Enriquez MD [address] [place] [address] PCP - General Family Medicine 07/26/20 documented as of this encounter
[2023-10-30 19:56] LABS: Basophils % (auto) 0.5 %; Eosinophils # (auto) 0.12 K/uL (0.00-0.50); Eosinophils % (auto) 0.6 %; Hematocrit (blood only) 42.4 % (37.0-47.0); Hemoglobin 14.3 g/dl (12.0-16.0); Immature Granulocytes # (auto) 0.11 K/uL (0.01-0.20); Immature Granulocytes % (auto) 0.5 %; Lymphocytes % (auto) 10.9 %; Mean Corpuscular Hemoglobin 28.6 pg (25.0-34.0); Mean Corpuscular Hgb Conc 33.7 g/dL (32.0-36.0); Mean Corpuscular Volume 84.8 fL (80.0-100.0); Mean Platelet Volume 9.1 fL (9.4-12.4); Monocytes # (auto) 0.99 K/uL (0.11-0.59); Monocytes % (auto) 4.7 %; Neutrophils # (auto) 17.48 K/uL (1.40-6.50); Neutrophils % (auto) 82.8 %; Platelet Count 411 K/uL (130-400); RDW Coefficient of Variation 13.3 % (11.5-14.5); RDW Standard Deviation 41.4 fL (36.4-46.3)
--- NOTE | 2023-10-30 20:00 | Emergency Department Note ---
Impression & Plan Sepsis, Colitis, High anion gap metabolic acidosis, Dehydration ED Provider Note NAME: LEONOR SIDHU AGE: 63 SEX: F : 1960 ARRIVES VIA: Ambulance INFORMANT: Patient ED PROVIDER(S): Danie Buckner MD CHIEF COMPLAINT: Abdominal pain, nausea, vomiting, diarrhea. PLAN: Disposition: Admit MEDICAL DECISION MAKING: The patient is a pleasant 63-year-old woman with a past medical history of IBS, migraines, abdominal migraines, diverticulitis, bowel obstruction who presents to the emergency department via EMS for evaluation of acute onset nausea, vomiting and diarrhea that occurred this evening around 5 PM. Patient reports feeling well earlier today. She denies any recent food intake that may have triggered her symptoms. She denies any sick contacts. She has any cough, congestion, chest pain, REED. EMS reports patient was hyperventilating. On evaluation the patient is uncomfortable but no distress, with hypothermia at 34 confirmed on rectal temperature of 35. Respiratory rate was in the 30s initially but then did improve with hydration. Patient was treated with warmed fluids and Zeb hugger and subsequently did normalize her temperature. There did appear to be transient peripheral and central cyanosis which resolved with hydration. CXR negative for acute cardiopulmonary process per my personal preliminary review/interpretation. WBC 21 K with neutrophil predominance but no left shift, nonspecific. H/H within normal limits. Platelets 411 K, nonspecific. Chemistry with Metabolic acidosis with bicarbonate of 16 and anion gap of 17 with initial lactic acid of 2.3 improving to 1.9 with IV hydration. Electrolytes LFTs unremarkable. High-sensitivity troponin 3.4, within normal limits. Lipase is normal. Procalcitonin is not elevated. CT of the on pelvis was performed and demonstrates nondilated diffuse fluid- filled colon with slight wall thickening enhancement suggestive of colitis/diarrheal illness. Incidental nonspecific right adrenal mass is noted denser than expected for adenoma. There is mild fatty infiltration of the liver. On re-evaluation the patient was feeling improved following IV hydration with 2 L normal saline 30+cc/kg of IVF hydration. IV famotidine, APAP, Zofran. Patient treated empirically with IV cefepime. Given leukocytosis with metabolic acidosis and hypothermia patient agrees plan for admission for further management for gastroenteritis/colitis/sepsis. Case was discussed with Dr. Peoples, [facility], who will evaluate the patient for admission. Further management per admitting team. Triage Nursing notes reviewed and agree them. Prior/external medical records reviewed Vital Signs: reviewed Differential diagnosis: Sepsis, UTI, pneumonia, metabolic, electrolyte abnormalities, cardiac sources, intracerebral event, toxicologic, neurologic, as well as other pathologies. ER treatment provided: See below. Diagnostics interpreted by me: Cardiac Monitoring: An order for continuous cardiac monitoring was placed and demonstrated sinus tachycardia, 105 bpm, no ectopy. Laboratory studies: See below Imaging studies: See below Consultation(s): Case was discussed with Dr. Peoples, [facility] hospitalist, who will evaluate the patient for admission. HPI: The patient is a pleasant 63-year-old woman with a past medical history of IBS, migraines, abdominal migraines, diverticulitis, bowel obstruction who presents to the emergency department via EMS for evaluation of acute onset nausea, vomiting and diarrhea that occurred this evening around 5 PM. Patient reports feeling well earlier today. She denies any recent food intake that may have triggered her symptoms. She denies any sick contacts. She has any cough, congestion, chest pain, REED. EMS reports patient was hyperventilating. ROS: See above HPI for pertinent positives & negatives. A total of 10 systems reviewed and were otherwise negative. VITALS:See Below PHYSICAL EXAMINATION: GENERAL: Awake, alert, ill-appearing, in no distress HENT: Normocephalic, atraumatic. Oropharynx with dry mucous membranes and otherwise unremarkable. EYES: Normal conjunctiva. Sclera non-icteric. NECK: Supple. No nuchal rigidity. FROM. No JVD. RESPIRATORY: Clear to auscultation. CARDIAC: Tachcardic rate, normal rhythm. Extremities warm and well perfused. Pulses equal. ABDOMEN: Soft, non-distended. No tenderness to palpation. No rebound or guarding. No masses. MUSCULOSKELETAL: Chest examination reveals no tenderness. The back is symmetrical on inspection without obvious abnormality. There is no CVA tenderness to palpation. No joint edema. LOWER EXTREMITIES: Calves are equal size bilaterally and non-tender. No edema. No discoloration. NEURO: Normal sensorium. No sensory or motor deficits noted. SKIN: Cool and clammy. No rash or jaundice noted. ED COURSE: Critical Care: I have personally spent greater than 35 minutes of critical care time in the direct management of this patient. This includes bedside care, interpretation of diagnostic studies, and testing, discussion with consultants, patient, and family members, and other required patient management activities. This 35 minutes is in excess of all separately billable procedures. Danie Buckner MD Past Med/Surg History Problem List (Updated 10/31/23 @ 00:21 by Danie Buckner MD) Dehydration (Acute) High anion gap metabolic acidosis (Acute) Colitis (Acute) Sepsis (Acute) Medical History Migraine Abdominal migraine No significant past medical history Social History Smoking Status: Never smoker Preferred Language: Mauritanian Feels Safe at Home: Yes Allergies Allergies Allergy/AdvReac Type Severity Reaction Status Date / Time Sulfa (Sulfonamide Allergy Intermediate HIVES, Verified 10/30/23 23:32 Antibiotics) SWELLING amoxicillin [From Augmentin] Allergy Unknown PER [facility] Verified 10/30/23 23:32 MED LIST cat dander Allergy Unknown PER [facility] Verified 10/30/23 23:32 MED LIST clarithromycin Allergy Unknown PER [facility] Verified 10/30/23 23:32 MED LIST clavulanic acid Allergy Unknown PER [facility] Verified 10/30/23 23:32 [From Augmentin] MED LIST fluoride AdvReac Intermediate ABD PAIN, Verified 10/30/23 23:32 DIARRHEA Macrolide Antibiotics AdvReac Intermediate NAUSEA, Verified 10/30/23 23:32 VOMITING Home Meds Home Medications Medication Instructions Recorded Confirmed fluticasone propionate 50 2 spray intranasal DAILY 09/30/18 10/30/23 mcg/actuation nasal spray,suspension amitriptyline 25 mg tablet 50 mg PO HS 05/10/22 10/30/23 conjugated estrogens 0.625 mg/gram 0.3125 mg vaginal 2XWK 05/10/22 10/30/23 vaginal cream (Premarin) dicyclomine 10 mg capsule 10 mg PO TID PRN ABD PAIN 05/10/22 10/30/23 esomeprazole magnesium 20 mg 20 mg PO DAILYBB 05/10/22 10/30/23 capsule,delayed release (Nexium) fluticasone 250 mcg-salmeterol 50 1 inh inhalation BID 05/10/22 10/30/23 mcg/dose blistr powdr for inhalation (Wixela Inhub) ibuprofen 200 mg tablet (Advil) 400 mg PO Q4H PRN Pain 05/10/22 10/30/23 ipratropium 20 mcg-albuterol 100 1 puff inhalation QID PRN 05/10/22 10/30/23 mcg/actuation mist for inhalation WHEEZING/COUGH (Combivent Respimat) rizatriptan 10 mg tablet 10 mg PO DIRECTED PRN Migraine 05/10/22 10/30/23 Headache Pro+Prebiotic & Cranberry Powd 1 dose PO DAILY 10/30/23 colestipol 1 gram tablet 1 g PO DAILY 10/30/23 10/30/23 galcanezumab-gnlm 120 mg/mL 120 mg subcut .[id number] 10/30/23 10/30/23 subcutaneous pen injector (Emgality Pen) etsgeyum-twle-elxh 8 mg-folic 400 1 tab PO DAILY 10/30/23 10/30/23 mcg-K 50 mcg-lutein 300 mcg tablet (Multivitamin Women 50 Plus) ondansetron HCl 4 mg tablet 4 mg PO Q12 PRN Nausea 10/30/23 10/30/23 Results & Data (ED) Vital Signs Vital Signs - 24 hr 10/30/23 19:35 10/30/23 19:40 10/30/23 19:40 Temperature 34.0 C L 35 C L Temperature Source Axillary Rectal Pulse Rate 85 Pulse Rate [Apical] 84 Pulse Rate from SpO2 Sensor Respiratory Rate 30 H Respiratory Effort / Characteristics Respiratory Depth Respiratory Pattern Blood Pressure [Right Arm] 126/104 H Blood Pressure Mean [Right Arm] 111 Pulse Oximetry 100 Oxygen Delivery Method Room Air Sepsis Recent Fever Within 48 Hours No Sepsis New/Unexplained Change in Mental Status No Sepsis Action Taken by Nursing No Action Required 10/30/23 20:00 10/30/23 20:02 10/30/23 20:22 Temperature 36.4 C L 35.7 C L Temperature Source Oral Rectal Pulse Rate 93 H Pulse Rate [Apical] 105 H Pulse Rate from SpO2 Sensor 93 H Respiratory Rate 16 30 H Respiratory Effort / Characteristics Respiratory Depth Respiratory Pattern Blood Pressure [Right Arm] 150/91 H Blood Pressure Mean [Right Arm] 110 Pulse Oximetry 100 Oxygen Delivery Method Room Air Sepsis Recent Fever Within 48 Hours Sepsis New/Unexplained Change in Mental Status Sepsis Action Taken by Nursing 10/30/23 21:02 10/30/23 21:25 10/30/23 22:18 Temperature 37 C 36.5 C Temperature Source Rectal Rectal Pulse Rate Pulse Rate [Apical] 102 H Pulse Rate from SpO2 Sensor Respiratory Rate 20 Respiratory Effort / Characteristics Respiratory Depth Respiratory Pattern Blood Pressure [Right Arm] 174/98 H Blood Pressure Mean [Right Arm] 123 Pulse Oximetry 98 Oxygen Delivery Method Room Air Sepsis Recent Fever Within 48 Hours Sepsis New/Unexplained Change in Mental Status Sepsis Action Taken by Nursing 10/30/23 22:29 10/30/23 23:00 10/30/23 23:36 Temperature Temperature Source Pulse Rate 99 H Pulse Rate [Apical] 108 H 97 H Pulse Rate from SpO2 Sensor Respiratory Rate 16 18 Respiratory Effort / Characteristics Non-Labored Spontaneous Respiratory Depth Normal Respiratory Pattern Regular Blood Pressure [Right Arm] 178/91 H 145/92 H Blood Pressure Mean [Right Arm] 120 109 Pulse Oximetry 99 96 Oxygen Delivery Method Room Air Room Air Sepsis Recent Fever Within 48 Hours Sepsis New/Unexplained Change in Mental Status Sepsis Action Taken by Nursing 10/31/23 00:00 Temperature Temperature Source Pulse Rate Pulse Rate [Apical] 106 H Pulse Rate from SpO2 Sensor Respiratory Rate 22 Respiratory Effort / Characteristics Non-Labored Spontaneous Respiratory Depth Normal Respiratory Pattern Regular Blood Pressure [Right Arm] 160/89 H Blood Pressure Mean [Right Arm] 112 Pulse Oximetry 96 Oxygen Delivery Method Room Air Sepsis Recent Fever Within 48 Hours Sepsis New/Unexplained Change in Mental Status Sepsis Action Taken by Nursing Laboratory Data Attestation: I reviewed the patient's lab results. 10/30/23 19:40 10/30/23 19:40 Lab Results 10/30/23 10/30/23 10/30/23 Range/Units 19:40 20:34 21:05 WBC 21.10 H (4.8-10.8) K/ul RBC 5.00 (4.20-5.40) M/uL Hgb 14.3 (12.0-16.0) g/dl Hct 42.4 (37.0-47.0) % MCV 84.8 (80.0-100.0) fL MCH 28.6 (25.0-34.0) pg MCHC 33.7 (32.0-36.0) g/dL RDW Std Deviation 41.4 (36.4-46.3) fL RDW Coeff of Live 13.3 (11.5-14.5) % Plt Count 411 H (130-400) K/uL MPV 9.1 L (9.4-12.4) fL Immature Gran % (Auto) 0.5 % Neut % (Auto) 82.8 % Lymph % (Auto) 10.9 % Wolfe % (Auto) 4.7 % Eos % (Auto) 0.6 % Baso % (Auto) 0.5 % Neut # (Auto) 17.48 H (1.40-6.50) K/uL Lymph # (Auto) 2.30 (1.20-3.40) K/uL Wolfe # (Auto) 0.99 H (0.11-0.59) K/uL Eos # (Auto) 0.12 (0.00-0.50) K/uL Baso # (Auto) 0.10 (0.00-0.20) K/uL Immature Gran # (Auto) 0.11 (0.01-0.20) K/uL Sodium 135 L (136-145) mmol/L Potassium 3.7 (3.5-5.1) mmol/L Chloride 102 (98-107) mmol/L Carbon Dioxide 16 L (21-32) mmol/L Anion Gap 17 H (3-11) BUN 21 (6-23) mg/dl Creatinine 1.15 (0.6-1.2) mg/dl Est Cr Clr Drug Dosing 43.4 ml/min Est GFR ( Amer) 58.6 ml/min Est GFR (Non-Af Amer) 50.6 ml/min BUN/Creatinine Ratio 18.3 (10-20) Glucose 206 H (70-99(Fasting)) mg/dl Lactate 2.3 H* (0.4-2.0) mmol/L Calcium 10.1 (8.6-10.3) mg/dl Magnesium 2.0 (1.7-2.4) mg/dl Total Bilirubin 0.4 (0.2-1.0) mg/dl Direct Bilirubin 0.1 (0-0.2) mg/dl AST 31 (13-39) U/L ALT 15 (7-52) U/L Alkaline Phosphatase 79 (34-104) U/L Troponin I High Sens 3.4 (0-14) pg/ml Total Protein 7.8 (6.0-8.3) gm/dl Albumin 4.9 (3.4-5.0) gm/dl Globulin 2.9 (2.5-4.0) gm/dl Albumin/Globulin Ratio 1.7 (0.9-2) Lipase 21 (11-82) U/L Procalcitonin 0.06 (0-0.5) ng/ml TSH 4.574 H (0.300-4.500) uIu/ml Free T4 1.03 (0.61-1.60) ng/dl Urine Color Urine Appearance (Clear) Urine pH (4.5-7.5) Ur Specific [place] (1.000-1.030) Urine Protein (Negative) Urine Glucose (UA) (Negative) Urine Ketones (Negative) Urine Blood (Negative) Urine Nitrite (Negative) Urine Bilirubin (Negative) Urine Urobilinogen (Negative) Ur Leukocyte Esterase (Negative) Stl C. cayetanensis PCR Not Detected (NotDetected) Stool Rotavirus A PCR Not Detected (NotDetected) Stl Adenov F 40/41 PCR Not Detected (NotDetected) Stool Astrovirus (PCR) Not Detected (NotDetected) Stool Campylobacter PCR Not Detected (NotDetected) Stl C. diff Tox B Gene Negative Cdiff Gene (Neg) Stool Cryptosporidium PCR Not Detected (NotDetected) Stl E.coli Shiga Tox PCR Not Detected (NotDetected) Stl Enterotoxigenic E PCR Not Detected (NotDetected) Stool EPEC (PCR) Not Detected (NotDetected) Stool EAEC (PCR) Not Detected (NotDetected) Stl E. histolytica PCR Not Detected (NotDetected) Stool Giardia Lamblia PCR Not Detected (NotDetected) Stool Salmonella PCR Not Detected (NotDetected) Stool Sapovirus (PCR) Not Detected (NotDetected) Stl P. shigelloides PCR Not Detected (NotDetected) Stl Shigella/EIEC PCR Not Detected (NotDetected) St Y.enterocolitica PCR Not Detected (NotDetected) Stool Vibrio (PCR) Not Detected (NotDetected) Stl Vibrio cholerae PCR Not Detected (NotDetected) Stl Norovirus GI/GII PCR Not Detected (NotDetected) 10/30/23 10/30/23 Range/Units 22:32 22:51 WBC (4.8-10.8) K/ul RBC (4.20-5.40) M/uL Hgb (12.0-16.0) g/dl Hct (37.0-47.0) % MCV (80.0-100.0) fL MCH (25.0-34.0) pg MCHC (32.0-36.0) g/dL RDW Std Deviation (36.4-46.3) fL RDW Coeff of Live (11.5-14.5) % Plt Count (130-400) K/uL MPV (9.4-12.4) fL Immature Gran % (Auto) % Neut % (Auto) % Lymph % (Auto) % Wolfe % (Auto) % Eos % (Auto) % Baso % (Auto) % Neut # (Auto) (1.40-6.50) K/uL Lymph # (Auto) (1.20-3.40) K/uL Wolfe # (Auto) (0.11-0.59) K/uL Eos # (Auto) (0.00-0.50) K/uL Baso # (Auto) (0.00-0.20) K/uL Immature Gran # (Auto) (0.01-0.20) K/uL Sodium (136-145) mmol/L Potassium (3.5-5.1) mmol/L Chloride (98-107) mmol/L Carbon Dioxide (21-32) mmol/L Anion Gap (3-11) BUN (6-23) mg/dl Creatinine (0.6-1.2) mg/dl Est Cr Clr Drug Dosing ml/min Est GFR ( Amer) ml/min Est GFR (Non-Af Amer) ml/min BUN/Creatinine Ratio (10-20) Glucose (70-99(Fasting)) mg/dl Lactate 1.9 (0.4-2.0) mmol/L Calcium (8.6-10.3) mg/dl Magnesium (1.7-2.4) mg/dl Total Bilirubin (0.2-1.0) mg/dl Direct Bilirubin (0-0.2) mg/dl AST (13-39) U/L ALT (7-52) U/L Alkaline Phosphatase (34-104) U/L Troponin I High Sens (0-14) pg/ml Total Protein (6.0-8.3) gm/dl Albumin (3.4-5.0) gm/dl Globulin (2.5-4.0) gm/dl Albumin/Globulin Ratio (0.9-2) Lipase (11-82) U/L Procalcitonin (0-0.5) ng/ml TSH (0.300-4.500) uIu/ml Free T4 (0.61-1.60) ng/dl Urine Color Colorless Urine Appearance Clear (Clear) Urine pH 5.5 (4.5-7.5) Ur Specific [place] <= 1.005 (1.000-1.030) Urine Protein Negative (Negative) Urine Glucose (UA) Negative (Negative) Urine Ketones Negative (Negative) Urine Blood Trace-lysed H (Negative) Urine Nitrite Negative (Negative) Urine Bilirubin Negative (Negative) Urine Urobilinogen Negative (Negative) Ur Leukocyte Esterase Negative (Negative) Stl C. cayetanensis PCR (NotDetected) Stool Rotavirus A PCR (NotDetected) Stl Adenov F 40/41 PCR (NotDetected) Stool Astrovirus (PCR) (NotDetected) Stool Campylobacter PCR (NotDetected) Stl C. diff Tox B Gene (Neg) Stool Cryptosporidium PCR (NotDetected) Stl E.coli Shiga Tox PCR (NotDetected) Stl Enterotoxigenic E PCR (NotDetected) Stool EPEC (PCR) (NotDetected) Stool EAEC (PCR) (NotDetected) Stl E. histolytica PCR (NotDetected) Stool Giardia Lamblia PCR (NotDetected) Stool Salmonella PCR (NotDetected) Stool Sapovirus (PCR) (NotDetected) Stl P. shigelloides PCR (NotDetected) Stl Shigella/EIEC PCR (NotDetected) St Y.enterocolitica PCR (NotDetected) Stool Vibrio (PCR) (NotDetected) Stl Vibrio cholerae PCR (NotDetected) Stl Norovirus GI/GII PCR (NotDetected) Administered Medications Discontinued Medications Sodium Chloride (Nss) 1,000 mls @ 999 mls/hr IV .Q1H1M ONE Stop: 10/30/23 20:53 Last Infusion: 10/30/23 21:41 Dose: Infused Documented By: Admin: 10/30/23 20:19 Dose: 999 mls/hr Documented By: DRISS Famotidine (Pepcid 20mg Iv Push) 20 mg in 5 mls @ 2.5 mls/min IV NOW STA Stop: 10/30/23 19:54 Last Admin: 10/30/23 20:19 Dose: 2.5 mls/min Documented By: DRISS Acetaminophen (Ofirmev) 1,000 mg in 100 mls @ 400 mls/hr IV NOW STA Stop: 10/30/23 20:47 Last Infusion: 10/30/23 22:07 Dose: Infused Documented By: Admin: 10/30/23 21:52 Dose: 400 mls/hr Documented By: DRISS Sodium Chloride (Nss) 1,000 mls @ 999 mls/hr IV .Q1H1M ONE Stop: 10/30/23 22:29 Last Infusion: 10/30/23 23:27 Dose: Infused Documented By: Admin: 10/30/23 22:22 Dose: 999 mls/hr Documented By: DRISS Cefepime HCl (Maxipime) 2,000 mg in 20 mls @ 5 mls/min IV NOW STA; Protocol Stop: 10/30/23 22:37 Last Admin: 10/30/23 23:12 Dose: 5 mls/min Documented By: FAVIOLA Ioversol (Optiray 320 100ml) 92 ml IV ONCE ONE Stop: 10/30/23 21:14 Last Admin: 10/30/23 21:14 Dose: 92 ml Documented By: GUALBERTO Ondansetron HCl (Ondansetron Inj 2 Mg/Ml 2 Ml Vial) 4 mg IV NOW STA Stop: 10/30/23 19:57 Last Admin: 10/30/23 20:19 Dose: 4 mg Documented By: DRISS Imaging Data Radiologist's Impression: Chest X-Ray 10/30/23 19:56 SINGLE VIEW CHEST CLINICAL HISTORY: Generalized abdominal pain. Nausea and vomiting. Diarrhea. FINDINGS: An AP, portable, upright chest radiograph is obtained. No prior studies are available for comparison at the time of dictation. The cardiomediastinal silhouette is unremarkable noting atherosclerotic calcification of the thoracic aorta. The lungs and pleural spaces are clear. No pneumothorax is seen. The skeletal structures are osteopenic. The bony thorax is grossly intact. IMPRESSION: No active disease in the chest. ACT 112: Negative or not required by law. Electronically signed by: Brayan Villalba M.D. 10/30/2023 8:48 PM Abdomen/Pelvis CT 10/30/23 20:33 Exam(s): CT ABDOMEN + PELVIS With Contrast IV Amt: 92 ml optiray 320 EXAM: CT Abdomen and Pelvis With Intravenous Contrast CLINICAL HISTORY: Sepsis, n/v/d. TECHNIQUE: Axial computed tomography images of the abdomen and pelvis with intravenous contrast. CTDI is 14.22 mGy and DLP is 644.26 mGy-cm. Automated exposure control was utilized for the study. A dose lowering technique was utilized adhering to the principles of ALARA. CONTRAST: Patient received 92 ml optiray 320 of IV contrast COMPARISON: No relevant prior studies available. FINDINGS: Lung bases: Unremarkable. No mass. No consolidation. ABDOMEN: Liver: Mildly hypodense/fatty. 15.2 cm length. No mass. Gallbladder and bile ducts: Well distended. No calcified stones. No ductal dilation. Pancreas: Unremarkable. No mass. No ductal dilation. Spleen: Unremarkable. No splenomegaly. Adrenals: 2.2 x 1.3 cm intermediate density right adrenal mass. Kidneys and ureters: No obstructive uropathy. No obstructing renal or ureteral calculi. No hydronephrosis or hydroureter. Stomach and bowel: No obstruction or ileus. Unremarkable small bowel. Diffuse fluid-filled colon from the cecum to the rectum with slight wall thickening with enhancement. No evidence for diverticulitis. PELVIS: Appendix: Appendix not identified. Probable cecal surgical clips suggesting appendectomy. Bladder: Partially contracted. No mass. Reproductive: Uterus and ovaries are grossly unremarkable. ABDOMEN and PELVIS: Intraperitoneal space: No free air. No free fluid. Bones/joints: No acute fracture. Soft tissues: Unremarkable. Vasculature: Atherosclerotic vascular calcifications. No abdominal aortic aneurysm. Lymph nodes: Scattered subcentimeter mesenteric lymph nodes. No enlarged lymph nodes. IMPRESSION: Nondilated diffuse fluid-filled colon with slight wall thickening and enhancement, suggestive of colitis/diarrhea. Nonspecific right adrenal mass, denser than expected for an adenoma. Mild fatty infiltration of the liver. Electronically signed by: Dontae Pacheco M.D. 10/30/23 22:56 PM Discharge Plan Visit Data Chief Complaint: GI Assessment Stated Complaint: VOMITING, DIARRHEA, ED Provider: Danie Buckner Discharge Problem: Sepsis, Colitis, High anion gap metabolic acidosis, Dehydration Forms Stand Alone Forms: [facility] Prescriptions Prescriptions: No Action fluticasone propionate 50 mcg/actuation spray,suspension 2 spray intranasal DAILY fluticasone propion-salmeterol [Wixela Inhub] 250-50 mcg/dose blister with device 1 inh INHALATION BID rizatriptan 10 mg tablet 10 mg PO DIRECTED MDD 3 TABS/24 HOURS PRN (Reason: Migraine Headache) Rx Instructions: TAKE AT ONSET OF REED, REPEAT EVERY 2 HOURS UP TO 2 TIMES. amitriptyline 25 mg Tablet 50 mg PO HS Premarin 0.625 mg/gram cream 0.3125 mg vaginal 2XWK ibuprofen [Advil] 200 mg Tablet 400 mg PO Q4H PRN (Reason: Pain) dicyclomine 10 mg Capsule 10 mg PO TID PRN (Reason: ABD PAIN) esomeprazole magnesium [Nexium] 20 mg Capsule,Delayed Release(Dr/Ec) 20 mg PO DAILYBB Combivent Respimat 20-100 mcg/actuation Mist 1 puff INHALATION QID PRN (Reason: WHEEZING/COUGH) colestipol 1 gram tablet 1 g PO DAILY Multivitamin Women 50 Plus 8 mg iron-400 mcg-50 mcg Tablet 1 tab PO DAILY Rx Instructions: gummy ondansetron HCl 4 mg tablet 4 mg PO Q12 PRN (Reason: Nausea) Emgality Pen 120 mg/mL pen injector 120 mg SUBCUT .[id number] Pro+Prebiotic & Cranberry Powd 1 dose PO DAILY Referrals Referrals: Beau Enriquez MD [Primary Care Provider] - Discharge Problem: Sepsis Qualifiers: Sepsis type: sepsis due to unspecified organism Sepsis acute organ dysfunction status: unspecified Qualified Code(s): A41.9 - Sepsis, unspecified organism
[2023-10-30 20:10] LABS: Albumin Globulin Ratio 1.7 (0.9-2); Albumin Level 4.9 gm/dl (3.4-5.0); BUN Creatinine Ratio 18.3 (10-20); Bilirubin,Total 0.4 mg/dl (0.2-1.0); Calcium 10.1 mg/dl (8.6-10.3); Creatinine Clr Calc Pharmacy 43.4 ml/min; Est GFR (African American) 58.6 ml/min; Est GFR (Non-African American) 50.6 ml/min; Globulin 2.9 gm/dl (2.5-4.0); Potassium 3.7 mmol/L (3.5-5.1); Total Protein 7.8 gm/dl (6.0-8.3)
[2023-10-30 20:18] LABS: Bilirubin Direct 0.1 mg/dl (0-0.2)
[2023-10-30] MEDS: FAMOTIDINE 20MG IV PUSH 20 MG/5 ML SYR IV STA (20:19)
[2023-10-30] MEDS: ONDANSETRON INJ 2 MG/ML 2 ML VIAL IV STA (20:19)
[2023-10-30] MEDS: SODIUM CHLORIDE 0.9% 1,000 ML IV ONE ×2 (20:19→22:22)
[2023-10-30 20:26] LABS: Troponin I High Sensitivity 3.4 pg/ml (0-14)
[2023-10-30 20:35] LABS: Thyroid Stimulating Hormone 4.574 uIu/ml (0.300-4.500)
--- NOTE | 2023-10-30 20:50 | XRay Report ---
SINGLE VIEW CHEST CLINICAL HISTORY: Generalized abdominal pain. Nausea and vomiting. Diarrhea. FINDINGS: An AP, portable, upright chest radiograph is obtained. No prior studies are available for c omparison at the time of dictation. The cardiomediastinal silhouette is unremarkable noting atheroscl erotic calcification of the thoracic aorta. The lungs and pleural spaces are clear. No pneumothorax i s seen. The skeletal structures are osteopenic. The bony thorax is grossly intact. IMPRESSION: No active disease in the chest. ACT 112: Negative or not required by law. Electronically signed by: Brayan Villalba M.D. 10/30/2023 8:48 PM
[2023-10-30 21:08] LABS: T4 Free Thyroxine 1.03 ng/dl (0.61-1.60)
[2023-10-30] MEDS: OPTIRAY 320 100ml IV ONE (21:14)
[2023-10-30] MEDS: ACETAMINOPHEN 1,000 MG/100 ML VIAL IV STA (21:52)
[2023-10-30 22:53] LABS: Appearance Urine Clear (Clear); Bilirubin Urine Negative (Negative); Blood Urine Trace-lysed (Negative); Color Urine Colorless; Glucose Urine UA Negative (Negative); Ketones Urine Negative (Negative); Leukocyte Esterase Urine Negative (Negative); Nitrite Urine Negative (Negative); Protein Urine Negative (Negative); Specific Gravity Urine <= 1.005 (1.000-1.030); Urobilinogen Urine Negative (Negative); pH Urine 5.5 (4.5-7.5)
[2023-10-30 22:56] LABS: Adenovirus F 40/41 PCR Not Detected (NotDetected); Astrovirus PCR Not Detected (NotDetected); Campylobacter PCR Not Detected (NotDetected); Cryptosporidium PCR Not Detected (NotDetected); Cyclospora cayetanensis PCR Not Detected (NotDetected); Entamoeba histolytica PCR Not Detected (NotDetected); Enteroaggregative E.coli(EAEC) Not Detected (NotDetected); Enteropathogenic E.coli (EPEC) Not Detected (NotDetected); Enterotoxigenic E.coli (ETEC) Not Detected (NotDetected); Giardia lamblia PCR Not Detected (NotDetected); Norovirus GI/GII PCR Not Detected (NotDetected); Plesiomonas shigelloides PCR Not Detected (NotDetected); Rotavirus A PCR Not Detected (NotDetected); Salmonella PCR Not Detected (NotDetected); Sapovirus PCR Not Detected (NotDetected); Shiga-like Toxin E.coli (STEC) Not Detected (NotDetected); Shigella/Enteroinvasive E.coli Not Detected (NotDetected); Vibrio cholerae PCR Not Detected (NotDetected); Vibrio species PCR Not Detected (NotDetected); Yersinia enterocolitica PCR Not Detected (NotDetected)
--- NOTE | 2023-10-30 22:56 | CT Scan Report ---
Exam(s): CT ABDOMEN + PELVIS With Contrast IV Amt: 92 ml optiray 320 EXAM: CT Abdomen and Pelvis With Intravenous Contrast CLINICAL HISTORY: Sepsis, n/v/d. TECHNIQUE: Axial computed tomography images of the abdomen and pelvis with intravenous contrast. CTDI is 14.22 mGy and DLP is 644.26 mGy-cm. Automated exposure control was utilized for the study. A dose lowering technique was utilized adhering to the principles of ALARA. CONTRAST: Patient received 92 ml optiray 320 of IV contrast COMPARISON: No relevant prior studies available. FINDINGS: Lung bases: Unremarkable. No mass. No consolidation. ABDOMEN: Liver: Mildly hypodense/fatty. 15.2 cm length. No mass. Gallbladder and bile ducts: Well distended. No calcified stones. No ductal dilation. Pancreas: Unremarkable. No mass. No ductal dilation. Spleen: Unremarkable. No splenomegaly. Adrenals: 2.2 x 1.3 cm intermediate density right adrenal mass. Kidneys and ureters: No obstructive uropathy. No obstructing renal or ureteral calculi. No hydronephrosis or hydroureter. Stomach and bowel: No obstruction or ileus. Unremarkable small bowel. Diffuse fluid-filled colon from the cecum to the rectum with slight wall thickening with enhancement. No evidence for diverticulitis. PELVIS: Appendix: Appendix not identified. Probable cecal surgical clips suggesting appendectomy. Bladder: Partially contracted. No mass. Reproductive: Uterus and ovaries are grossly unremarkable. ABDOMEN and PELVIS: Intraperitoneal space: No free air. No free fluid. Bones/joints: No acute fracture. Soft tissues: Unremarkable. Vasculature: Atherosclerotic vascular calcifications. No abdominal aortic aneurysm. Lymph nodes: Scattered subcentimeter mesenteric lymph nodes. No enlarged lymph nodes. IMPRESSION: Nondilated diffuse fluid-filled colon with slight wall thickening and enhancement, suggestive of colitis/diarrhea. Nonspecific right adrenal mass, denser than expected for an adenoma. Mild fatty infiltration of the liver. Electronically signed by: Dontae Pacheco M.D. 10/30/23 22:56 PM
[2023-10-30] MEDS: CEFEPIME 2,000 MG/20 ML VIAL IV STA (23:12)
[2023-10-31] MEDS ORDERED: IPRATROPIUM BROMIDE/ALBUTEROL respimat INH INH PRN (03:49)
[2023-10-31] MEDS ORDERED: NITROGLYCERIN SL 0.4 MG/TAB TAB SL PRN (03:49)
[2023-10-31] MEDS ORDERED: DICYCLOMINE HCL 10 MG CAP PO PRN (03:49)
--- NOTE | 2023-10-31 03:55 | History & Physical Report ---
Date of Service October 31, 2023 Assessment & Plan (1) High anion gap metabolic acidosis: Plan: 63-year-old female with past medical history significant for irritable bowel syndrome with diarrhea, history of GERD, history of resection of terminal ileum and cecum due to perforated diverticulitis and has short gut syndrome, fibromyalgia, migraine variant presents with several episodes of nausea/vomiting and diarrhea and when patient came in she was hypothermic and cyanotic and improved with the fluids and Zeb hugger. Patient states initially she had large bowel movement. And then later she had a lot of abdominal cramps and she sat on the commode for almost 2 hours having profuse diarrhea. And vomited several times. No blood in the vomitus. Currently nausea improved. No bowel movement currently. Somewhat wobbly while walking. Feeling weak and tired. Recently couple of weeks ago she had 10-day course of Cipro for sinusitis. Denies any fevers. Currently no headache. Vision is okay. No runny nose . Throat is dry. No cough. Currently no chest pain or shortness of breath. Sometimes in the morning she gets chest discomfort. Micturating okay. No swelling the legs. Currently hemodynamics are okay. No recent travel. No outside food. No one sick in the family. Patient states she had 2 bug bites on the legs today. Not sure if they are ticks. Patient is somewhat hard of hearing. High anion gap metabolic acidosis probably from diarrhea getting fluids will follow repeat labs and if no improvement will consult nephrology possible sepsis presented with hypothermia initial lactic acid 2.3 and repeat is 1.9 has leukocytosis nausea vomiting and diarrhea colitis on the CT scan stool studies negative. C. difficile negative. received cefepime in ER placed on IV Invanz for now follow cultures GI consult in a.m. for further recommendations antiemetics and fluids n.p.o. for now adrenal adenoma ,on CAT scan needs follow-up history of short gut syndrome history of migraine currently on emgality GERD on Nexium IV Pepcid for now DVT prophylaxis heparin subcu disposition telemetry Full code. History of Present Illness Chief Complaint: nausea vomiting and diarrhea Primary Care Provider: Beau Enriquez MD 63-year-old female with past medical history significant for irritable bowel syndrome with diarrhea, history of GERD, history of resection of terminal ileum and cecum due to perforated diverticulitis and has short gut syndrome, fibromyalgia, migraine variant presents with several episodes of nausea/vomiting and diarrhea and when patient came in she was hypothermic and cyanotic and improved with the fluids and Zeb hugger. Patient states initially she had large bowel movement. And then later she had a lot of abdominal cramps and she sat on the commode for almost 2 hours having profuse diarrhea. And vomited several times. No blood in the vomitus. Currently nausea improved. No bowel movement currently. Somewhat wobbly while walking. Feeling weak and tired. Recently couple of weeks ago she had 10-day course of Cipro for sinusitis. Denies any fevers. Currently no headache. Vision is okay. No runny nose . Throat is dry. No cough. Currently no chest pain or shortness of breath. Sometimes in the morning she gets chest discomfort. Micturating okay. No swelling the legs. Currently hemodynamics are okay. No recent travel. No outside food. No one sick in the family. Patient states she had 2 bug bites on the legs today. Not sure if they are ticks. Patient is somewhat hard of hearing. Past medical history. As mentioned above Past surgical history. Appendectomy. Right breast biopsy. Colonoscopy. Conization of cervix. Dilatation curettage. Resection of terminal ileum and cecum due to perforated diverticulitis. Bilateral cataracts. Social history. . Quit smoking in 2014. Smoked half pack a day for 2 years. Alcohol social drinking. No drug use. Family history. Mother had diverticulitis. Irritable bowel syndrome. Father had heart disease. Stroke. Allergies Allergy/AdvReac Type Severity Reaction Status Date / Time Sulfa (Sulfonamide Allergy Intermediate HIVES, Verified 10/30/23 23:32 Antibiotics) SWELLING amoxicillin [From Augmentin] Allergy Unknown PER [facility] Verified 10/30/23 23:32 MED LIST cat dander Allergy Unknown PER [facility] Verified 10/30/23 23:32 MED LIST clarithromycin Allergy Unknown PER [facility] Verified 10/30/23 23:32 MED LIST clavulanic acid Allergy Unknown PER [facility] Verified 10/30/23 23:32 [From Augmentin] MED LIST fluoride AdvReac Intermediate ABD PAIN, Verified 10/30/23 23:32 DIARRHEA Macrolide Antibiotics AdvReac Intermediate NAUSEA, Verified 10/30/23 23:32 VOMITING Home Medications Medication Instructions Recorded Confirmed Type fluticasone propionate 50 2 spray intranasal DAILY 09/30/18 10/30/23 History mcg/actuation nasal spray,suspension amitriptyline 25 mg tablet 50 mg PO HS 05/10/22 10/30/23 History conjugated estrogens 0.625 mg/gram 0.3125 mg vaginal 2XWK 05/10/22 10/30/23 History vaginal cream (Premarin) dicyclomine 10 mg capsule 10 mg PO TID PRN ABD PAIN 05/10/22 10/30/23 History esomeprazole magnesium 20 mg 20 mg PO DAILYBB 05/10/22 10/30/23 History capsule,delayed release (Nexium) fluticasone 250 mcg-salmeterol 50 1 inh inhalation BID 05/10/22 10/30/23 History mcg/dose blistr powdr for inhalation (Wixela Inhub) ibuprofen 200 mg tablet (Advil) 400 mg PO Q4H PRN Pain 05/10/22 10/30/23 History ipratropium 20 mcg-albuterol 100 1 puff inhalation QID PRN 05/10/22 10/30/23 History mcg/actuation mist for inhalation WHEEZING/COUGH (Combivent Respimat) rizatriptan 10 mg tablet 10 mg PO DIRECTED PRN Migraine 05/10/22 10/30/23 History Headache Pro+Prebiotic & Cranberry Powd 1 dose PO DAILY 10/30/23 History colestipol 1 gram tablet 1 g PO DAILY 10/30/23 10/30/23 History galcanezumab-gnlm 120 mg/mL 120 mg subcut .[id number] 10/30/23 10/30/23 History subcutaneous pen injector (Emgality Pen) loigqtev-luaw-zcxo 8 mg-folic 400 1 tab PO DAILY 10/30/23 10/30/23 History mcg-K 50 mcg-lutein 300 mcg tablet (Multivitamin Women 50 Plus) ondansetron HCl 4 mg tablet 4 mg PO Q12 PRN Nausea 10/30/23 10/30/23 History Past Med/Surg History Problem List (Updated 10/31/23 @ 00:21 by Danie Buckner MD) Dehydration (Acute) High anion gap metabolic acidosis (Acute) Colitis (Acute) Sepsis (Acute) Medical History Migraine Abdominal migraine No significant past medical history Social History Smoking Status: Never smoker Preferred Language: French Feels Safe at Home: Yes Review of Systems Review of Systems: All systems reviewed & are unremarkable except as noted in HPI & below Physical Exam Physical Exam: General- Not in distress. Head- atraumatic Eyes- PERRL. ENT- oropharynx clear Neck- supple, no JVD. Heart- regular rhythm; no murmur, no gallop. Abdomen- normal bowel sounds, soft, nontender, no distension. Extremities- no pretibial edema, no erythema seen Neuro- alert, oriented PERRL, no facial palsy; no dysarthria; moves extremities. Skin- bug bites seen on b/l legs around knee/thigh region Results & Data Results & Data Vital Signs (Past 12 Hours) Vital Signs Temp Pulse Pulse Resp BP Pulse Ox O2 Del Method 10/31/23 03:31 101 H 10/31/23 02:00 106 H 18 170/97 H 95 Room Air 10/31/23 01:00 111 H 18 163/97 H 95 Room Air 10/31/23 00:00 106 H 22 160/89 H 96 Room Air 10/30/23 23:36 99 H 10/30/23 23:00 97 H 18 145/92 H 96 Room Air 10/30/23 22:29 108 H 16 178/91 H 99 Room Air 10/30/23 22:18 36.5 C 10/30/23 21:25 102 H 20 174/98 H 98 Room Air 10/30/23 21:02 37 C 10/30/23 20:22 35.7 C L 105 H 30 H 150/91 H 10/30/23 20:02 36.4 C L 10/30/23 20:00 93 H 16 100 Room Air 10/30/23 19:40 35 C L 10/30/23 19:40 85 10/30/23 19:35 34.0 C L 84 30 H 126/104 H 100 Room Air Diagnostic Findings Laboratory Results WBC 21.10 K/ul (4.8-10.8) H 10/30/23 19:40 RBC 5.00 M/uL (4.20-5.40) 10/30/23 19:40 Hgb 14.3 g/dl (12.0-16.0) 10/30/23 19:40 Hct 42.4 % (37.0-47.0) 10/30/23 19:40 MCV 84.8 fL (80.0-100.0) 10/30/23 19:40 MCH 28.6 pg (25.0-34.0) 10/30/23 19:40 MCHC 33.7 g/dL (32.0-36.0) 10/30/23 19:40 RDW Std Deviation 41.4 fL (36.4-46.3) 10/30/23 19:40 RDW Coeff of Live 13.3 % (11.5-14.5) 10/30/23:40 Plt Count 411 K/uL (130-400) H 10/30/23 19:40 MPV 9.1 fL (9.4-12.4) L 10/30/23 19:40 Immature Gran % (Auto) 0.5 % 10/30/23 19:40 Neut % (Auto) 82.8 % 10/30/23 19:40 Lymph % (Auto) 10.9 % 10/30/23 19:40 [place] % (Auto) 4.7 % 10/30/23 19:40 Eos % (Auto) 0.6 % 10/30/23 19:40 Baso % (Auto) 0.5 % 10/30/23 19:40 Neut # (Auto) 17.48 K/uL (1.40-6.50) H 10/30/23 19:40 Lymph # (Auto) 2.30 K/uL (1.20-3.40) 10/30/23 19:40 [place] # (Auto) 0.99 K/uL (0.11-0.59) H 10/30/23 19:40 Eos # (Auto) 0.12 K/uL (0.00-0.50) 10/30/23 19:40 Baso # (Auto) 0.10 K/uL (0.00-0.20) 10/30/23 19:40 Immature Gran # (Auto) 0.11 K/uL (0.01-0.20) 10/30/23 19:40 Sodium 135 mmol/L (136-145) L 10/30/23 19:40 Potassium 3.7 mmol/L (3.5-5.1) 10/30/23 19:40 Chloride 102 mmol/L (98-107) 10/30/23 19:40 Carbon Dioxide 16 mmol/L (21-32) L 10/30/23 19:40 Anion Gap 17 (3-11) H 10/30/23 19:40 BUN 21 mg/dl (6-23) 10/30/23 19:40 Creatinine 1.15 mg/dl (0.6-1.2) 10/30/23 19:40 Est Cr Clr Drug Dosing 43.4 ml/min 10/30/23 19:40 Est GFR ( Amer) 58.6 ml/min 10/30/23 19:40 Est GFR (Non-Af Amer) 50.6 ml/min 10/30/23 19:40 BUN/Creatinine Ratio 18.3 (10-20) 10/30/23 19:40 Glucose 206 mg/dl (70-99(Fasting)) H 10/30/23 19:40 Lactate 1.9 mmol/L (0.4-2.0) 10/30/23 22:51 Calcium 10.1 mg/dl (8.6-10.3) 10/30/23 19:40 Magnesium 2.0 mg/dl (1.7-2.4) 10/30/23 19:40 Total Bilirubin 0.4 mg/dl (0.2-1.0) 10/30/23 19:40 Direct Bilirubin 0.1 mg/dl (0-0.2) 10/30/23 19:40 AST 31 U/L (13-39) 10/30/23 19:40 ALT 15 U/L (7-52) 10/30/23 19:40 Alkaline Phosphatase 79 U/L (34-104) 10/30/23 19:40 Troponin I High Sens 3.4 pg/ml (0-14) 10/30/23 19:40 Total Protein 7.8 gm/dl (6.0-8.3) 10/30/23 19:40 Albumin 4.9 gm/dl (3.4-5.0) 10/30/23 19:40 Globulin 2.9 gm/dl (2.5-4.0) 10/30/23 19:40 Albumin/Globulin Ratio 1.7 (0.9-2) 10/30/23 19:40 Lipase 21 U/L (11-82) 10/30/23 19:40 Procalcitonin 0.06 ng/ml (0-0.5) 10/30/23 19:40 TSH 4.574 uIu/ml (0.300-4.500) H 10/30/23 19:40 Free T4 1.03 ng/dl (0.61-1.60) 10/30/23 19:40 Urine Color Colorless 10/30/23 22:32 Urine Appearance Clear (Clear) 10/30/23 22:32 Urine pH 5.5 (4.5-7.5) 10/30/23 22:32 Ur Specific [place] <= 1.005 (1.000-1.030) 10/30/23 22:32 Urine Protein Negative (Negative) 10/30/23 22:32 Urine Glucose (UA) Negative (Negative) 10/30/23 22: Urine Ketones Negative (Negative) 10/30/23 22:32 Urine Blood Trace-lysed (Negative) H 10/30/23 22:32 Urine Nitrite Negative (Negative) 10/30/23 22:32 Urine Bilirubin Negative (Negative) 10/30/23 22:32 Urine Urobilinogen Negative (Negative) 10/30/23 22:32 Ur Leukocyte Esterase Negative (Negative) 10/30/23 22:32 Stl C. cayetanensis PCR Not Detected (NotDetected) 10/30/23 21:05 Stool Rotavirus A PCR Not Detected (NotDetected) 10/30/23 21:05 Stl Adenov F 40/41 PCR Not Detected (NotDetected) 10/30/23 21:05 Stool Astrovirus (PCR) Not Detected (NotDetected) 10/30/23 21:05 Stool Campylobacter PCR Not Detected (NotDetected) 10/30/23 21:05 Stl C. diff Tox B Gene Negative Cdiff Gene (Neg) 10/30/23 21:05 Stool Cryptosporidium PCR Not Detected (NotDetected) 10/30/23 21:05 Stl E.coli Shiga Tox PCR Not Detected (NotDetected) 10/30/23 21:05 Stl Enterotoxigenic E PCR Not Detected (NotDetected) 10/30/23 21:05 Stool EPEC (PCR) Not Detected (NotDetected) 10/30/23 21:05 Stool EAEC (PCR) Not Detected (NotDetected) 10/30/23 21:05 Stl E. histolytica PCR Not Detected (NotDetected) 10/30/23 21:05 Stool Giardia Lamblia PCR Not Detected (NotDetected) 10/30/23 21:05 Stool Salmonella PCR Not Detected (NotDetected) 10/30/23 21:05 Stool Sapovirus (PCR) Not Detected (NotDetected) 10/30/23 21:05 Stl P. shigelloides PCR Not Detected (NotDetected) 10/30/23 21:05 Stl Shigella/EIEC PCR Not Detected (NotDetected) 10/30/23 21:05 St Y.enterocolitica PCR Not Detected (NotDetected) 10/30/23 21:05 Stool Vibrio (PCR) Not Detected (NotDetected) 10/30/23 21:05 Stl Vibrio cholerae PCR Not Detected (NotDetected) 10/30/23 21:05 Stl Norovirus GI/GII PCR Not Detected (NotDetected) 10/30/23 21:05 Impressions Chest X-Ray 10/30/23 19:56 SINGLE VIEW CHEST CLINICAL HISTORY: Generalized abdominal pain. Nausea and vomiting. Diarrhea. FINDINGS: An AP, portable, upright chest radiograph is obtained. No prior studies are available for comparison at the time of dictation. The cardiomediastinal silhouette is unremarkable noting atherosclerotic calcification of the thoracic aorta. The lungs and pleural spaces are clear. No pneumothorax is seen. The skeletal structures are osteopenic. The bony thorax is grossly intact. IMPRESSION: No active disease in the chest. ACT 112: Negative or not required by law. Electronically signed by: Brayan Villalba M.D. 10/30/2023 8:48 PM Abdomen/Pelvis CT 10/30/23 20:33 Exam(s): CT ABDOMEN + PELVIS With Contrast IV Amt: 92 ml optiray 320 EXAM: CT Abdomen and Pelvis With Intravenous Contrast CLINICAL HISTORY: Sepsis, n/v/d. TECHNIQUE: Axial computed tomography images of the abdomen and pelvis with intravenous contrast. CTDI is 14.22 mGy and DLP is 644.26 mGy-cm. Automated exposure control was utilized for the study. A dose lowering technique was utilized adhering to the principles of ALARA. CONTRAST: Patient received 92 ml optiray 320 of IV contrast COMPARISON: No relevant prior studies available. FINDINGS: Lung bases: Unremarkable. No mass. No consolidation. ABDOMEN: Liver: Mildly hypodense/fatty. 15.2 cm length. No mass. Gallbladder and bile ducts: Well distended. No calcified stones. No ductal dilation. Pancreas: Unremarkable. No mass. No ductal dilation. Spleen: Unremarkable. No splenomegaly. Adrenals: 2.2 x 1.3 cm intermediate density right adrenal mass. Kidneys and ureters: No obstructive uropathy. No obstructing renal or ureteral calculi. No hydronephrosis or hydroureter. Stomach and bowel: No obstruction or ileus. Unremarkable small bowel. Diffuse fluid-filled colon from the cecum to the rectum with slight wall thickening with enhancement. No evidence for diverticulitis. PELVIS: Appendix: Appendix not identified. Probable cecal surgical clips suggesting appendectomy. Bladder: Partially contracted. No mass. Reproductive: Uterus and ovaries are grossly unremarkable. ABDOMEN and PELVIS: Intraperitoneal space: No free air. No free fluid. Bones/joints: No acute fracture. Soft tissues: Unremarkable. Vasculature: Atherosclerotic vascular calcifications. No abdominal aortic aneurysm. Lymph nodes: Scattered subcentimeter mesenteric lymph nodes. No enlarged lymph nodes. IMPRESSION: Nondilated diffuse fluid-filled colon with slight wall thickening and enhancement, suggestive of colitis/diarrhea. Nonspecific right adrenal mass, denser than expected for an adenoma. Mild fatty infiltration of the liver. Electronically signed by: Dontae Pacheco M.D. 10/30/23 22:56 PM Code Status & VTE Plan VTE Prophylaxis Plan VTE Prophylaxis will be ordered: Yes
[2023-10-31] MEDS ORDERED: Albuterol HFA 8 GM Inhaler (Combivent Respimat P&T Subs) INH PRN (04:05)
[2023-10-31] MEDS ORDERED: Ipratropium HFA Inhaler (Combivent Respimat P&T Subs) INH PRN (04:06)
[2023-10-31] MEDS: DOXYCYCLINE HYCLATE 100 MG CAP PO STA (04:38)
[2023-10-31] MEDS: D5W AND NSS 1,000 ML IV SCH (04:41)
[2023-10-31] MEDS: ERTAPENEM SODIUM 10 ML IV STA (04:44)
[2023-10-31] MEDS: ONDANSETRON INJ 2 MG/ML 2 ML VIAL IV PRN (05:23)
[2023-10-31] MEDS: PANTOprazole 40 MG TAB PO SCH (06:32)
[2023-10-31 07:47] LABS: Calcium 8.8 mg/dl (8.6-10.3); Magnesium 1.9 mg/dl (1.7-2.4); Potassium 4.1 mmol/L (3.5-5.1)
[2023-10-31 07:53] LABS: BUN Creatinine Ratio 17.4 (10-20); Est GFR (African American) 83.3 ml/min; Est GFR (Non-African American) 71.9 ml/min
[2023-10-31 07:58] LABS: Basophils # (auto) 0.05 K/uL (0.00-0.20); Basophils % (auto) 0.5 %; Eosinophils # (auto) 0.06 K/uL (0.00-0.50); Eosinophils % (auto) 0.6 %; Hematocrit (blood only) 37.9 % (37.0-47.0); Hemoglobin 12.6 g/dl (12.0-16.0); Immature Granulocytes # (auto) 0.04 K/uL (0.01-0.20); Immature Granulocytes % (auto) 0.4 %; Lymphocytes # (auto) 1.83 K/uL (1.20-3.40); Lymphocytes % (auto) 19.5 %; Mean Corpuscular Hemoglobin 28.9 pg (25.0-34.0); Mean Corpuscular Hgb Conc 33.2 g/dL (32.0-36.0); Mean Corpuscular Volume 86.9 fL (80.0-100.0); Mean Platelet Volume 9.4 fL (9.4-12.4); Monocytes # (auto) 0.66 K/uL (0.11-0.59); Neutrophils # (auto) 6.75 K/uL (1.40-6.50); Platelet Count 314 K/uL (130-400); RDW Coefficient of Variation 13.5 % (11.5-14.5); RDW Standard Deviation 43.3 fL (36.4-46.3); Red Blood Count 4.36 M/uL (4.20-5.40); White Blood Count 9.39 K/ul (4.8-10.8)
[2023-10-31] MEDS: FAMOTIDINE 20MG IV PUSH 20 MG/5 ML SYR IV SCH (08:08)
[2023-10-31] MEDS: FLUTICASONE PROPIONATE NA SPR 16 GM BTL SCH (09:49)
[2023-10-31] MEDS: FLUTICASONE/VILANTEROL 200/25MCG 14 PUFFS/INHALER INH SCH (09:51)
[2023-10-31] MEDS: HEPARIN SOD 5,000 UNIT/0.5 ML VIAL SQ SCH (09:53)
[2023-10-31] MEDS: CEROVITE ADV FORMULA TAB PO SCH (09:57)
[2023-10-31] MEDS: COLESTIPOL HCL 1 GM TAB PO SCH (09:58)
--- NOTE | 2023-10-31 11:19 | Gastrointestinal Consultation ---
Date of Consultation October 31, 2023 Assessment & Plan (1) Colitis: I am not certain if she had one of her "spells" or an acute infectious enteritis. She had a marked leukocytosis on admit but that has completely resolved. That could be related to dehydration or infectious process. It seems to me more consistent with an acute infectious process. At any rate she has had problems like this over the years and sees Dr. Crowley for it. She is back to normal now so I think we can reinstitute her diet and i don't think she will have a long hospital stay. I don't plan evaluation with colonoscopy for an acute colitis and she gets these regularly by Dr. Crowley. History of Present Illness Reason for Consultation: colitis Attending Physician: Syed Conn MD History of Present Illness 63 year old female with a history of intermittent spells of abdominal pain and diarrhea that she seems to tie to onset of her migraines. All of this started after a fall in 1998. She said that yesterday she did her exercising, fixed her lunch and then later developed an aura of a migraine. After that she started having abdominal pain and diarrhea evolving into vomiting as well. This continued until about 10 pm last night after she was brought to the hospital. It lasted all afternoon and she got very dehydrated and was unable to get back and forth to the bathroom which is why her had ambulance bring her in. She says when she was standing to get her CT she "turned purple" as first noted by the nurse and then information technology intern. As she was able to lay down her color normalized. As mentioned before this is a chronic problem and she sees Dr. Crowley for this. Her last colonoscopy she says was last summer. She did not eat anything yesterday that she felt could be the cause of food poisoning. She did not see blood with her bowel movements. 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 Dr. Crowley has managed her resultant loose stools with colestipol. As I am seeing her she is feeling "back to normal" and is hungry. Allergies Allergy/AdvReac Type Severity Reaction Status Date / Time Sulfa (Sulfonamide Allergy Intermediate HIVES, Verified 10/30/23 23:32 Antibiotics) SWELLING amoxicillin [From Augmentin] Allergy Unknown PER [facility] Verified 10/30/23 23:32 MED LIST cat dander Allergy Unknown PER [facility] Verified 10/30/23 23:32 MED LIST clarithromycin Allergy Unknown PER [facility] Verified 10/30/23 23:32 MED LIST clavulanic acid Allergy Unknown PER [facility] Verified 10/30/23 23:32 [From Augmentin] MED LIST fluoride AdvReac Intermediate ABD PAIN, Verified 10/30/23 23:32 DIARRHEA Macrolide Antibiotics AdvReac Intermediate NAUSEA, Verified 10/30/23 23:32 VOMITING Home Medications Medication Instructions Recorded Confirmed Type fluticasone propionate 50 2 spray intranasal DAILY 09/30/18 10/30/23 History mcg/actuation nasal spray,suspension amitriptyline 25 mg tablet 50 mg PO HS 05/10/22 10/30/23 History conjugated estrogens 0.625 mg/gram 0.3125 mg vaginal 2XWK 05/10/22 10/30/23 History vaginal cream (Premarin) dicyclomine 10 mg capsule 10 mg PO TID PRN ABD PAIN 05/10/22 10/30/23 History esomeprazole magnesium 20 mg 20 mg PO DAILYBB 05/10/22 10/30/23 History capsule,delayed release (Nexium) fluticasone 250 mcg-salmeterol 50 1 inh inhalation BID 05/10/22 10/30/23 History mcg/dose blistr powdr for inhalation (Wixela Inhub) ibuprofen 200 mg tablet (Advil) 400 mg PO Q4H PRN Pain 05/10/22 10/30/23 History ipratropium 20 mcg-albuterol 100 1 puff inhalation QID PRN 05/10/22 10/30/23 History mcg/actuation mist for inhalation WHEEZING/COUGH (Combivent Respimat) rizatriptan 10 mg tablet 10 mg PO DIRECTED PRN Migraine 05/10/22 10/30/23 History Headache Pro+Prebiotic & Cranberry Powd 1 dose PO DAILY 10/30/23 History colestipol 1 gram tablet 1 g PO DAILY 10/30/23 10/30/23 History galcanezumab-gnlm 120 mg/mL 120 mg subcut .[id number] 10/30/23 10/30/23 History subcutaneous pen injector (Emgality Pen) nwrhbxgo-hpcb-veke 8 mg-folic 400 1 tab PO DAILY 10/30/23 10/30/23 History mcg-K 50 mcg-lutein 300 mcg tablet (Multivitamin Women 50 Plus) ondansetron HCl 4 mg tablet 4 mg PO Q12 PRN Nausea 10/30/23 10/30/23 History Patient History Medical History Migraine Abdominal migraine No significant past medical history Social History Smoking Status: Never smoker Preferred Language: Bulgarian Feels Safe at Home: Yes Review of Systems Review of Systems: All systems reviewed & are unremarkable except as noted in HPI & below Physical Exam Constitutional: WD/WN, vitals as above cooperative; no acute distress Neck: trachea midline, no thyromegaly Respiratory: normal respiratory effort, lungs clear to auscultation Cardiovascular: RRR, no murmur, no edema Gastrointestinal (Abdomen): normal bowel sounds, soft, nontender, no hepatosplenomegaly Results & Data Vital Signs (Past 12 Hours) Vital Signs Pulse Pulse Resp BP BP Pulse Ox Pulse Ox 10/31/23 07:18 80 24 125/91 99 10/31/23 07:18 80 24 125/91 97 10/31/23 06:56 88 10/31/23 03:49 99 10/31/23 03:31 101 H 10/31/23 02:00 106 H 18 170/97 H 95 10/31/23 01:00 111 H 18 163/97 H 95 10/31/23 00:00 106 H 22 160/89 H 96 10/30/23 23:36 99 H O2 Del Method O2 Del Method 10/31/23 07:18 Room Air 10/31/23 07:18 Room Air 10/31/23 06:56 10/31/23 03:49 Room Air 10/31/23 03:31 10/31/23 02:00 Room Air 10/31/23 01:00 Room Air 10/31/23 00:00 Room Air 10/30/23 23:36 Laboratory Results 10/31/23 10/31/23 10/30/23 Range/Units 07:12 05:36 22:51 WBC 9.39 D Cancelled (4.8-10.8) K/ul RBC 4.36 Cancelled (4.20-5.40) M/uL Hgb 12.6 Cancelled (12.0-16.0) g/dl Hct 37.9 Cancelled (37.0-47.0) % MCV 86.9 Cancelled (80.0-100.0) fL MCH 28.9 Cancelled (25.0-34.0) pg MCHC 33.2 Cancelled (32.0-36.0) g/dL RDW Std Deviation 43.3 Cancelled (36.4-46.3) fL RDW Coeff of Live 13.5 Cancelled (11.5-14.5) % Plt Count 314 Cancelled (130-400) K/uL MPV 9.4 Cancelled (9.4-12.4) fL Immature Gran % (Auto) 0.4 Cancelled % Neut % (Auto) 72.0 Cancelled % Lymph % (Auto) 19.5 Cancelled % [facility] [place] [facility] % (Auto) 7.0 Cancelled % Eos % (Auto) 0.6 Cancelled % Baso % (Auto) 0.5 Cancelled % Neut # (Auto) 6.75 H Cancelled (1.40-6.50) K/uL Lymph # (Auto) 1.83 Cancelled (1.20-3.40) K/uL [facility] [place] [facility] # (Auto) 0.66 H Cancelled (0.11-0.59) K/uL Eos # (Auto) 0.06 Cancelled (0.00-0.50) K/uL Baso # (Auto) 0.05 Cancelled (0.00-0.20) K/uL Immature Gran # (Auto) 0.04 Cancelled (0.01-0.20) K/uL Absolute Nucleated RBC Cancelled Nucleated RBC % (auto) Cancelled Neutrophils % (Manual) Cancelled Band Neutrophils % Cancelled Lymphocytes % (Manual) Cancelled Prolymphocyte % Cancelled Reactive Lymphs % (Man) Cancelled Monocytes % (Manual) Cancelled Eosinophils % (Manual) Cancelled Basophils % (Manual) Cancelled Metamyelocytes % (Man) Cancelled Myelocytes % (Man) Cancelled Promyelocytes % (Man) Cancelled Blast Cells % (Manual) Cancelled Plasma Cell % (Manual) Cancelled Other Cells % Cancelled Nucleated RBC % Cancelled Neutrophils # (Manual) Cancelled Band Neutrophils # Cancelled Total Absolute Neuts Cancelled Lymphocytes # (Manual) Cancelled Prolymphocyte # Cancelled Reactive Lymphs # Cancelled Total Abs Lymphocytes Cancelled Monocytes # (Manual) Cancelled Eosinophils # (Manual) Cancelled Basophils # (Manual) Cancelled Metamyelocytes # (Man) Cancelled Myelocytes # (Manual) Cancelled Promyelocytes # (Man) Cancelled Blast Cells # (Man) Cancelled Plasma Cell # (Manual) Cancelled Other Cells # Cancelled Nucleated RBCs # (Man) Cancelled Hypersegmented Neuts Cancelled Hyposegmented Neuts Cancelled Hypogranular Neuts Cancelled Large Granular Lymphs Cancelled # Lrg Granular Lymphs Cancelled Hairy Cells Cancelled Smudge Cells Cancelled Toxic Granulation Cancelled Toxic Vacuolation Cancelled Dohle Bodies Cancelled Fanny Rods Cancelled Platelet Estimate Cancelled Hypogranular Platelets Cancelled Giant Platelets Cancelled Platelet Satelliting Cancelled RBC Morphology Cancelled Polychromasia Cancelled Hypochromasia Cancelled Poikilocytosis Cancelled Basophilic Stippling Cancelled Anisocytosis Cancelled Microcytosis Cancelled Macrocytosis Cancelled Spherocytes Cancelled Pappenheimer Bodies Cancelled Sickle Cells Cancelled Target Cells Cancelled Tear Drop Cells Cancelled Ovalocytes Cancelled Stomatocytes Cancelled [place] Bodies Cancelled Echinocytes Cancelled Acanthocytes (Spur) Cancelled Rouleaux Cancelled RBC Agglutinates Cancelled Schistocytes Cancelled Sezary Cell Cancelled Sodium 139 Cancelled (136-145) mmol/L Potassium 4.1 Cancelled (3.5-5.1) mmol/L Chloride 111 H Cancelled (98-107) mmol/L Carbon Dioxide 20 L Cancelled (21-32) mmol/L Anion Gap 8 Cancelled (3-11) BUN 15 Cancelled (6-23) mg/dl Creatinine 0.86 Cancelled (0.6-1.2) mg/dl Est Cr Clr Drug Dosing 58.0 Cancelled ml/min Est GFR ( Amer) 83.3 Cancelled ml/min Est GFR (Non-Af Amer) 71.9 Cancelled ml/min BUN/Creatinine Ratio 17.4 Cancelled (10-20) Glucose 112 H Cancelled (70-99(Fasting)) mg/dl Lactate 1.9 (0.4-2.0) mmol/L Calcium 8.8 Cancelled (8.6-10.3) mg/dl Phosphorus 4.0 Cancelled Magnesium 1.9 Cancelled (1.7-2.4) mg/dl Total Bilirubin (0.2-1.0) mg/dl Direct Bilirubin (0-0.2) mg/dl AST (13-39) U/L ALT (7-52) U/L Alkaline Phosphatase (34-104) U/L Troponin I High Sens (0-14) pg/ml Total Protein (6.0-8.3) gm/dl Albumin (3.4-5.0) gm/dl Globulin (2.5-4.0) gm/dl Albumin/Globulin Ratio (0.9-2) Lipase (11-82) U/L Procalcitonin (0-0.5) ng/ml TSH (0.300-4.500) uIu/ml Free T4 (0.61-1.60) ng/dl Urine Color Urine Appearance (Clear) Urine pH (4.5-7.5) Ur Specific Calvin (1.000-1.030) Urine Protein (Negative) Urine Glucose (UA) (Negative) Urine Ketones (Negative) Urine Blood (Negative) Urine Nitrite (Negative) Urine Bilirubin (Negative) Urine Urobilinogen (Negative) Ur Leukocyte Esterase (Negative) Stl C. cayetanensis PCR (NotDetected) Stool Rotavirus A PCR (NotDetected) Stl Adenov F 40/41 PCR (NotDetected) Stool Astrovirus (PCR) (NotDetected) Stool Campylobacter PCR (NotDetected) Stl C. diff Tox B Gene (Neg) Stool Cryptosporidium PCR (NotDetected) Stl E.coli Shiga Tox PCR (NotDetected) Stl Enterotoxigenic E PCR (NotDetected) Stool EPEC (PCR) (NotDetected) Stool EAEC (PCR) (NotDetected) Stl E. histolytica PCR (NotDetected) Stool Giardia Lamblia PCR (NotDetected) Stool Salmonella PCR (NotDetected) Stool Sapovirus (PCR) (NotDetected) Stl P. shigelloides PCR (NotDetected) Stl Shigella/EIEC PCR (NotDetected) St Y.enterocolitica PCR (NotDetected) Stool Vibrio (PCR) (NotDetected) Stl Vibrio cholerae PCR (NotDetected) Stl Norovirus GI/GII PCR (NotDetected) Blood Parasites ID Cancelled 10/30/23 10/30/23 10/30/23 Range/Units 22:32 21:05 20:34 WBC (4.8-10.8) K/ul RBC (4.20-5.40) M/uL Hgb (12.0-16.0) g/dl Hct (37.0-47.0) % MCV (80.0-100.0) fL MCH (25.0-34.0) pg MCHC (32.0-36.0) g/dL RDW Std Deviation (36.4-46.3) fL RDW Coeff of Live (11.5-14.5) % Plt Count (130-400) K/uL MPV (9.4-12.4) fL Immature Gran % (Auto) % Neut % (Auto) % Lymph % (Auto) % [facility] [place] % (Auto) % Eos % (Auto) % Baso % (Auto) % Neut # (Auto) (1.40-6.50) K/uL Lymph # (Auto) (1.20-3.40) K/uL [facility] # (Auto) (0.11-0.59) K/uL Eos # (Auto) (0.00-0.50) K/uL Baso # (Auto) (0.00-0.20) K/uL Immature Gran # (Auto) (0.01-0.20) K/uL Absolute Nucleated RBC Nucleated RBC % (auto) Neutrophils % (Manual) Band Neutrophils % Lymphocytes % (Manual) Prolymphocyte % Reactive Lymphs % (Man) Monocytes % (Manual) Eosinophils % (Manual) Basophils % (Manual) Metamyelocytes % (Man) Myelocytes % (Man) Promyelocytes % (Man) Blast Cells % (Manual) Plasma Cell % (Manual) Other Cells % Nucleated RBC % Neutrophils # (Manual) Band Neutrophils # Total Absolute Neuts Lymphocytes # (Manual) Prolymphocyte # Reactive Lymphs # Total Abs Lymphocytes Monocytes # (Manual) Eosinophils # (Manual) Basophils # (Manual) Metamyelocytes # (Man) Myelocytes # (Manual) Promyelocytes # (Man) Blast Cells # (Man) Plasma Cell # (Manual) Other Cells # Nucleated RBCs # (Man) Hypersegmented Neuts Hyposegmented Neuts Hypogranular Neuts Large Granular Lymphs # Lrg Granular Lymphs Hairy Cells Smudge Cells Toxic Granulation Toxic Vacuolation Dohle Bodies Fanny Rods Platelet Estimate Hypogranular Platelets Giant Platelets Platelet Satelliting RBC Morphology Polychromasia Hypochromasia Poikilocytosis Basophilic Stippling Anisocytosis Microcytosis Macrocytosis Spherocytes Pappenheimer Bodies Sickle Cells Target Cells Tear Drop Cells Ovalocytes Stomatocytes [place] Bodies Echinocytes Acanthocytes (Spur) Rouleaux RBC Agglutinates Schistocytes Sezary Cell Sodium (136-145) mmol/L Potassium (3.5-5.1) mmol/L Chloride (98-107) mmol/L Carbon Dioxide (21-32) mmol/L Anion Gap (3-11) BUN (6-23) mg/dl Creatinine (0.6-1.2) mg/dl Est Cr Clr Drug Dosing ml/min Est GFR ( Amer) ml/min Est GFR (Non-Af Amer) ml/min BUN/Creatinine Ratio (10-20) Glucose (70-99(Fasting)) mg/dl Lactate 2.3 H* (0.4-2.0) mmol/L Calcium (8.6-10.3) mg/dl Phosphorus Magnesium (1.7-2.4) mg/dl Total Bilirubin (0.2-1.0) mg/dl Direct Bilirubin (0-0.2) mg/dl AST (13-39) U/L ALT (7-52) U/L Alkaline Phosphatase (34-104) U/L Troponin I High Sens (0-14) pg/ml Total Protein (6.0-8.3) gm/dl Albumin (3.4-5.0) gm/dl Globulin (2.5-4.0) gm/dl Albumin/Globulin Ratio (0.9-2) Lipase (11-82) U/L Procalcitonin (0-0.5) ng/ml TSH (0.300-4.500) uIu/ml Free T4 (0.61-1.60) ng/dl Urine Color Colorless Urine Appearance Clear (Clear) Urine pH 5.5 (4.5-7.5) Ur Specific Calvin <= 1.005 (1.000-1.030) Urine Protein Negative (Negative) Urine Glucose (UA) Negative (Negative) Urine Ketones Negative (Negative) Urine Blood Trace-lysed H (Negative) Urine Nitrite Negative (Negative) Urine Bilirubin Negative (Negative) Urine Urobilinogen Negative (Negative) Ur Leukocyte Esterase Negative (Negative) Stl C. cayetanensis PCR Not Detected (NotDetected) Stool Rotavirus A PCR Not Detected (NotDetected) Stl Adenov F 40/41 PCR Not Detected (NotDetected) Stool Astrovirus (PCR) Not Detected (NotDetected) Stool Campylobacter PCR Not Detected (NotDetected) Stl C. diff Tox B Gene Negative Cdiff Gene (Neg) Stool Cryptosporidium PCR Not Detected (NotDetected) Stl E.coli Shiga Tox PCR Not Detected (NotDetected) Stl Enterotoxigenic E PCR Not Detected (NotDetected) Stool EPEC (PCR) Not Detected (NotDetected) Stool EAEC (PCR) Not Detected (NotDetected) Stl E. histolytica PCR Not Detected (NotDetected) Stool Giardia Lamblia PCR Not Detected (NotDetected) Stool Salmonella PCR Not Detected (NotDetected) Stool Sapovirus (PCR) Not Detected (NotDetected) Stl P. shigelloides PCR Not Detected (NotDetected) Stl Shigella/EIEC PCR Not Detected (NotDetected) St Y.enterocolitica PCR Not Detected (NotDetected) Stool Vibrio (PCR) Not Detected (NotDetected) Stl Vibrio cholerae PCR Not Detected (NotDetected) Stl Norovirus GI/GII PCR Not Detected (NotDetected) Blood Parasites ID 10/30/23 Range/Units 19:40 WBC 21.10 H (4.8-10.8) K/ul RBC 5.00 (4.20-5.40) M/uL Hgb 14.3 (12.0-16.0) g/dl Hct 42.4 (37.0-47.0) % MCV 84.8 (80.0-100.0) fL MCH 28.6 (25.0-34.0) pg MCHC 33.7 (32.0-36.0) g/dL RDW Std Deviation 41.4 (36.4-46.3) fL RDW Coeff of Live 13.3 (11.5-14.5) % Plt Count 411 H (130-400) K/uL MPV 9.1 L (9.4-12.4) fL Immature Gran % (Auto) 0.5 % Neut % (Auto) 82.8 % Lymph % (Auto) 10.9 % [facility] [place] % (Auto) 4.7 % Eos % (Auto) 0.6 % Baso % (Auto) 0.5 % Neut # (Auto) 17.48 H (1.40-6.50) K/uL Lymph # (Auto) 2.30 (1.20-3.40) K/uL [facility] [place] [facility] # (Auto) 0.99 H (0.11-0.59) K/uL Eos # (Auto) 0.12 (0.00-0.50) K/uL Baso # (Auto) 0.10 (0.00-0.20) K/uL Immature Gran # (Auto) 0.11 (0.01-0.20) K/uL Absolute Nucleated RBC Nucleated RBC % (auto) Neutrophils % (Manual) Band Neutrophils % Lymphocytes % (Manual) Prolymphocyte % Reactive Lymphs % (Man) Monocytes % (Manual) Eosinophils % (Manual) Basophils % (Manual) Metamyelocytes % (Man) Myelocytes % (Man) Promyelocytes % (Man) Blast Cells % (Manual) Plasma Cell % (Manual) Other Cells % Nucleated RBC % Neutrophils # (Manual) Band Neutrophils # Total Absolute Neuts Lymphocytes # (Manual) Prolymphocyte # Reactive Lymphs # Total Abs Lymphocytes Monocytes # (Manual) Eosinophils # (Manual) Basophils # (Manual) Metamyelocytes # (Man) Myelocytes # (Manual) Promyelocytes # (Man) Blast Cells # (Man) Plasma Cell # (Manual) Other Cells # Nucleated RBCs # (Man) Hypersegmented Neuts Hyposegmented Neuts Hypogranular Neuts Large Granular Lymphs # Lrg Granular Lymphs Hairy Cells Smudge Cells Toxic Granulation Toxic Vacuolation Dohle Bodies Fanny Rods Platelet Estimate Hypogranular Platelets Giant Platelets Platelet Satelliting RBC Morphology Polychromasia Hypochromasia Poikilocytosis Basophilic Stippling Anisocytosis Microcytosis Macrocytosis Spherocytes Pappenheimer Bodies Sickle Cells Target Cells Tear Drop Cells Ovalocytes Stomatocytes [place] Bodies Echinocytes Acanthocytes (Spur) Rouleaux RBC Agglutinates Schistocytes Sezary Cell Sodium 135 L (136-145) mmol/L Potassium 3.7 (3.5-5.1) mmol/L Chloride 102 (98-107) mmol/L Carbon Dioxide 16 L (21-32) mmol/L Anion Gap 17 H (3-11) BUN 21 (6-23) mg/dl Creatinine 1.15 (0.6-1.2) mg/dl Est Cr Clr Drug Dosing 43.4 ml/min Est GFR ( Amer) 58.6 ml/min Est GFR (Non-Af Amer) 50.6 ml/min BUN/Creatinine Ratio 18.3 (10-20) Glucose 206 H (70-99(Fasting)) mg/dl Lactate (0.4-2.0) mmol/L Calcium 10.1 (8.6-10.3) mg/dl Phosphorus Magnesium 2.0 (1.7-2.4) mg/dl Total Bilirubin 0.4 (0.2-1.0) mg/dl Direct Bilirubin 0.1 (0-0.2) mg/dl AST 31 (13-39) U/L ALT 15 (7-52) U/L Alkaline Phosphatase 79 (34-104) U/L Troponin I High Sens 3.4 (0-14) pg/ml Total Protein 7.8 (6.0-8.3) gm/dl Albumin 4.9 (3.4-5.0) gm/dl Globulin 2.9 (2.5-4.0) gm/dl Albumin/Globulin Ratio 1.7 (0.9-2) Lipase 21 (11-82) U/L Procalcitonin 0.06 (0-0.5) ng/ml TSH 4.574 H (0.300-4.500) uIu/ml Free T4 1.03 (0.61-1.60) ng/dl Urine Color Urine Appearance (Clear) Urine pH (4.5-7.5) Ur Specific Calvin (1.000-1.030) Urine Protein (Negative) Urine Glucose (UA) (Negative) Urine Ketones (Negative) Urine Blood (Negative) Urine Nitrite (Negative) Urine Bilirubin (Negative) Urine Urobilinogen (Negative) Ur Leukocyte Esterase (Negative) Stl C. cayetanensis PCR (NotDetected) Stool Rotavirus A PCR (NotDetected) Stl Adenov F 40/41 PCR (NotDetected) Stool Astrovirus (PCR) (NotDetected) Stool Campylobacter PCR (NotDetected) Stl C. diff Tox B Gene (Neg) Stool Cryptosporidium PCR (NotDetected) Stl E.coli Shiga Tox PCR (NotDetected) Stl Enterotoxigenic E PCR (NotDetected) Stool EPEC (PCR) (NotDetected) Stool EAEC (PCR) (NotDetected) Stl E. histolytica PCR (NotDetected) Stool Giardia Lamblia PCR (NotDetected) Stool Salmonella PCR (NotDetected) Stool Sapovirus (PCR) (NotDetected) Stl P. shigelloides PCR (NotDetected) Stl Shigella/EIEC PCR (NotDetected) St Y.enterocolitica PCR (NotDetected) Stool Vibrio (PCR) (NotDetected) Stl Vibrio cholerae PCR (NotDetected) Stl Norovirus GI/GII PCR (NotDetected) Blood Parasites ID Diagnostic Findings Chest X-Ray 10/30/23 19:56 SINGLE VIEW CHEST CLINICAL HISTORY: Generalized abdominal pain. Nausea and vomiting. Diarrhea. FINDINGS: An AP, portable, upright chest radiograph is obtained. No prior studies are available for comparison at the time of dictation. The cardiomediastinal silhouette is unremarkable noting atherosclerotic calcification of the thoracic aorta. The lungs and pleural spaces are clear. No pneumothorax is seen. The skeletal structures are osteopenic. The bony thorax is grossly intact. IMPRESSION: No active disease in the chest. ACT 112: Negative or not required by law. Electronically signed by: Brayan Villalba M.D. 10/30/2023 8:48 PM Abdomen/Pelvis CT 10/30/23 20:33 Exam(s): CT ABDOMEN + PELVIS With Contrast IV Amt: 92 ml optiray 320 EXAM: CT Abdomen and Pelvis With Intravenous Contrast CLINICAL HISTORY: Sepsis, n/v/d. TECHNIQUE: Axial computed tomography images of the abdomen and pelvis with intravenous contrast. CTDI is 14.22 mGy and DLP is 644.26 mGy-cm. Automated exposure control was utilized for the study. A dose lowering technique was utilized adhering to the principles of ALARA. CONTRAST: Patient received 92 ml optiray 320 of IV contrast COMPARISON: No relevant prior studies available. FINDINGS: Lung bases: Unremarkable. No mass. No consolidation. ABDOMEN: Liver: Mildly hypodense/fatty. 15.2 cm length. No mass. Gallbladder and bile ducts: Well distended. No calcified stones. No ductal dilation. Pancreas: Unremarkable. No mass. No ductal dilation. Spleen: Unremarkable. No splenomegaly. Adrenals: 2.2 x 1.3 cm intermediate density right adrenal mass. Kidneys and ureters: No obstructive uropathy. No obstructing renal or ureteral calculi. No hydronephrosis or hydroureter. Stomach and bowel: No obstruction or ileus. Unremarkable small bowel. Diffuse fluid-filled colon from the cecum to the rectum with slight wall thickening with enhancement. No evidence for diverticulitis. PELVIS: Appendix: Appendix not identified. Probable cecal surgical clips suggesting appendectomy. Bladder: Partially contracted. No mass. Reproductive: Uterus and ovaries are grossly unremarkable. ABDOMEN and PELVIS: Intraperitoneal space: No free air. No free fluid. Bones/joints: No acute fracture. Soft tissues: Unremarkable. Vasculature: Atherosclerotic vascular calcifications. No abdominal aortic aneurysm. Lymph nodes: Scattered subcentimeter mesenteric lymph nodes. No enlarged lymph nodes. IMPRESSION: Nondilated diffuse fluid-filled colon with slight wall thickening and enhancement, suggestive of colitis/diarrhea. Nonspecific right adrenal mass, denser than expected for an adenoma. Mild fatty infiltration of the liver. Electronically signed by: Dontae Pacheco M.D. 10/30/23 22:56 PM
--- NOTE | 2023-10-31 15:06 | Communication Note ---
Date of Service: October 31, 2023 The patient was seen and examined in emergency room. She was admitted with nonspecific colitis with nondilated fluid-filled colon with slight wall thickening suggestive of colitis/diarrhea. The white count was elevated at more than 23,000. Antibiotic has been started with Invanz And she has been afebrile still remains symptomatic and white count has been normalized. 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 Not for any immediate scope. Will advance diet as tolerated. Likely discharge tomorrow. Full progress note will be done tomorrow. Dr Marina jimenez
[2023-10-31] MEDS: AMITRIPTYLINE HCL 50 MG TAB PO SCH (20:25)
[2023-10-31] MEDS ORDERED: methylPREDNISolone 125 MG/2 ML VIAL IV STA (22:07)
[2023-10-31] MEDS: methylPREDNISolone 60 MG in SYRINGE 0 ML IV STA (22:29)
[2023-10-31] MEDS: diphenhydrAMINE 50 MG/ML VIAL IV STA (22:29)
[2023-11-01] MEDS ORDERED: ERTAPENEM SODIUM 1,000 MG in SYRINGE 0 ML IV SCH (05:00)
[2023-11-01 07:15] LABS: Hematocrit (blood only) 35.1 % (37.0-47.0); Hemoglobin 11.6 g/dl (12.0-16.0); Mean Corpuscular Volume 87.8 fL (80.0-100.0); Mean Platelet Volume 9.3 fL (9.4-12.4); Platelet Count 331 K/uL (130-400); RDW Coefficient of Variation 13.5 % (11.5-14.5); RDW Standard Deviation 43.8 fL (36.4-46.3)
[2023-11-01 07:27] LABS: BUN Creatinine Ratio 11.4 (10-20); Calcium 8.7 mg/dl (8.6-10.3); Creatinine Clr Calc Pharmacy 71.9 ml/min; Est GFR (African American) 106.9 ml/min; Est GFR (Non-African American) 92.2 ml/min; Magnesium 1.8 mg/dl (1.7-2.4); Phosphorus 3.4 mg/dl (2.5-4.9)
--- NOTE | 2023-11-01 07:41 | Electrocardiogram Report ---
Test Reason : Blood Pressure : / mmHG Vent. Rate : 075 BPM Atrial Rate : 075 BPM P-R Int : 168 ms QRS Dur : 090 ms QT Int : 398 ms P-R-T Axes : 057 007 037 degrees QTc Int : 444 ms Normal sinus rhythm Normal ECG No previous ECGs available Confirmed by Beau Cook ([id number]) on 11/01/2023 7:41:13 AM Referred By: REFERRED SELF Confirmed By:Beau Cook
[2023-11-01 08:24] LABS: Basophils # (auto) 0.01 K/uL (0.00-0.20); Basophils % (auto) 0.2 %; Immature Granulocytes # (auto) 0.02 K/uL (0.01-0.20); Immature Granulocytes % (auto) 0.4 %; Lymphocytes # (auto) 0.93 K/uL (1.20-3.40); Lymphocytes % (auto) 19.4 %; Monocytes # (auto) 0.03 K/uL (0.11-0.59); Monocytes % (auto) 0.6 %; Neutrophils # (auto) 3.81 K/uL (1.40-6.50); Neutrophils % (auto) 79.4 %; RBC Morphology Unremarkable
--- NOTE | 2023-11-01 10:23 | Gastroenterology Progress Note ---
<Statement entered by Naeem Campbell MD - 11/01/23 14:38> Patient was discharged before I could see her. Date of Service November 01, 2023 Assessment & Plan (1) Colitis: Plan: 63 year old female, patient of Dr. Keo MELLO, w/ history of irritable bowel syndrome with diarrhea, GERD, TI and cecal resection due to perforated diverticulitis, short gut syndrome, fibromyalgia, migraines and others below admitted with pain, cramping, diarrhea, CT imaging with colitis. Stool studies negative, clinically improving w/ plan for discharge after lunch. Would continue supportive measure. No indication to discharge home on ABX from a GI standpoint. Should continue her regular medication regimen for IBS including colestipol and Bentyl. She should follow up with her regular GI provider to discuss with repeat colonoscopy is indicated given colitis on imaging. Recall GI as needed. She will need to follow up with her PCP for ?adrenal adenoma. Thank you for allowing us to participate in the care of this patient. Please call with any acute changes, questions or concerns. Please see addendum below with additional recommendation from my supervising physician. I spent a total of 50 minutes on the date of service in review of patient's record, and previously obtained information in person and appropriate medical visit, discussion and education of plan, with patient and/or caregiver, placing orders for tests/referral/procedures as medically necessary and documentation of pertinent clinical information in patient's medical records for their visit today. Admission and Anticipated Discharge Date Admission Date: October 31, 2023 Subjective Pt was seen and evaluated, chart reviewed. Notes she is feeling much improved. Plan is to eat lunch and be discharged home. Suggest she is almost 100% improved. She questions if she had some degree of food poisoning, now recalling she had a BLT before her symptoms started. Stool studies 2023: negative CTAP 2023: Nondilated diffuse fluid-filled colon with slight wall thickening and enhancement, suggestive of colitis/diarrhea. Nonspecific right adrenal mass, denser than expected for an adenoma. Mild fatty infiltration of the liver. Review of Systems Review of Systems: All other findings negative except as noted in HPI. Physical Exam Constitutional: WD/WN, vitals as above Respiratory: normal respiratory effort Cardiovascular: Rate/Rhythm: regular rate Gastrointestinal (Abdomen): normal bowel sounds, soft, nontender, no hepatosplenomegaly Skin: no rashes, warm and dry Results & Data Results & Data Vital Signs (Past 12 Hours) Vital Signs Temp Pulse Pulse Resp BP BP Pulse Ox 11/01/23 08:01 36.3 C L 108 H 18 138/81 97 11/01/23 03:49 36.7 C 75 18 156/90 H 93 10/31/23 23:05 77 148/77 H 10/31/23 23:00 77 10/31/23 22:44 36.7 C 85 18 170/99 H 97 O2 Del Method 11/01/23 08:01 Room Air 11/01/23 03:49 Room Air 10/31/23 23:05 10/31/23 23:00 10/31/23 22:44 Room Air Laboratory Results 11/01/23 Range/Units 06:16 WBC 4.80 (4.8-10.8) K/ul RBC 4.00 L (4.20-5.40) M/uL Hgb 11.6 L (12.0-16.0) g/dl Hct 35.1 L (37.0-47.0) % MCV 87.8 (80.0-100.0) fL MCH 29.0 (25.0-34.0) pg MCHC 33.0 (32.0-36.0) g/dL RDW Std Deviation 43.8 (36.4-46.3) fL RDW Coeff of Live 13.5 (11.5-14.5) % Plt Count 331 (130-400) K/uL MPV 9.3 L (9.4-12.4) fL Immature Gran % (Auto) 0.4 % Neut % (Auto) 79.4 % Lymph % (Auto) 19.4 % Dickey % (Auto) 0.6 % Eos % (Auto) 0.0 % Baso % (Auto) 0.2 % Neut # (Auto) 3.81 (1.40-6.50) K/uL Lymph # (Auto) 0.93 L (1.20-3.40) K/uL Dickey # (Auto) 0.03 L (0.11-0.59) K/uL Eos # (Auto) 0.00 (0.00-0.50) K/uL Baso # (Auto) 0.01 (0.00-0.20) K/uL Immature Gran # (Auto) 0.02 (0.01-0.20) K/uL RBC Morphology Unremarkable Sodium 141 (136-145) mmol/L Potassium 4.0 (3.5-5.1) mmol/L Chloride 113 H (98-107) mmol/L Carbon Dioxide 21 (21-32) mmol/L Anion Gap 7 (3-11) BUN 8 (6-23) mg/dl Creatinine 0.70 (0.6-1.2) mg/dl Est Cr Clr Drug Dosing 71.9 ml/min Est GFR ( Amer) 106.9 ml/min Est GFR (Non-Af Amer) 92.2 ml/min BUN/Creatinine Ratio 11.4 (10-20) Glucose 184 H (70-99(Fasting)) mg/dl Calcium 8.7 (8.6-10.3) mg/dl Phosphorus 3.4 (2.5-4.9) mg/dl Magnesium 1.8 (1.7-2.4) mg/dl PG Care Time/CCT Total # of Minutes Spent Total Time Spent with Patient: Total time spent is greater than 50% in coordination of care (as documented) at patient's floor/unit and/or counseling patient: Coding Level of Care Code 90533 SUB INP/OBS CARE 3/50MIN Diagnoses Colitis K52.9
--- NOTE | 2023-11-01 12:09 | Hospitalist Progress Note ---
Date of Service November 01, 2023 Assessment & Plan (1) High anion gap metabolic acidosis: Plan: 63-year-old female with past medical history significant for irritable bowel syndrome with diarrhea, history of GERD, history of resection of terminal ileum and cecum due to perforated diverticulitis and has short gut syndrome, fibromyalgia, migraine variant presents with several episodes of nausea/vomiting and diarrhea and when patient came in she was hypothermic and cyanotic and improved with the fluids and Zeb hugger. Patient states initially she had large bowel movement. And then later she had a lot of abdominal cramps and she sat on the commode for almost 2 hours having profuse diarrhea. And vomited several times. No blood in the vomitus. Currently nausea improved. No bowel movement currently. Somewhat wobbly while walking. Feeling weak and tired. Recently couple of weeks ago she had 10-day course of Cipro for sinusitis. Denies any fevers. Currently no headache. Vision is okay. No runny nose . Throat is dry. No cough. Currently no chest pain or shortness of breath. Sometimes in the morning she gets chest discomfort. Micturating okay. No swelling the legs. Currently hemodynamics are okay. No recent travel. No outside food. No one sick in the family. Patient states she had 2 bug bites on the legs today. Not sure if they are ticks. Patient is somewhat hard of hearing. High anion gap metabolic acidosis probably from diarrhea getting fluids will follow repeat labs and if no improvement will consult nephrology Resolved Possible sepsis White count was elevated to more than 23 K, lactate was high on presentation but became normalized on second test Diarrhea/evidence of colitis in CAT scan Received intravenous Invanz White count and symptoms completely resolved within the next 12 to 24 hours Appreciate GI input and recommendation She tolerated regular diet without any problem She was discharged home Does not require an antibiotic as per the GI or by myself Adenoma on CAT scan Advised to have follow-up History of short gut syndrome History of migraine Currently on emgality GERD on Nexium IV Pepcid for now DVT prophylaxis heparin subcu disposition telemetry Full code. She was discharged home Admission and Anticipated Discharge Date Admission Date: October 31, 2023 Subjective 11/01/2023 The patient was seen and examined in telemetry unit She has been feeling much better Denies any significant symptoms Has been tolerating regular diet and ambulating without any difficulty No more abdominal symptoms Was evaluated by GI and recommended home Review of Systems Review of Systems: All systems reviewed and are unremarkable except as noted below Physical Exam Physical Exam: Lying in bed comfortably Constitutional: average body habitus; not ill appearing Eyes: PERRL, conjunctivae normal, anicteric sclerae ENMT: external ear and nose normal, oropharynx normal Neck: trachea midline, no thyromegaly Respiratory: no respiratory distress Auscultation: lungs clear to auscultation bilaterally Cardiovascular: Rate/Rhythm: regular rate and regular rhythm; not tachycardic Heart Sounds: normal S1 and normal S2; no murmur Extremities: no edema Gastrointestinal (Abdomen): Inspection/Auscultation: normal bowel sounds; abdomen not distended Percussion/Palpation: abdomen soft; abdomen nontender Musculoskeletal: No acute arthritis involving any of the joints Neurologic: normal touch/pain/proprioception and moves all extremities; no focal motor deficits Psychiatric: A+Ox3, euthymic affect Lymphatic: no cervical or axillary lymphadenopathy Results & Data Results & Data Vital Signs (Past 12 Hours) Vital Signs Temp Pulse Pulse Resp BP Pulse Ox O2 Del Method 11/01/23 10:58 36.7 C 112 H 18 155/117 H 97 Room Air 11/01/23 09:40 68 11/01/23 08:01 36.3 C L 108 H 18 138/81 97 Room Air 11/01/23 03:49 36.7 C 75 18 156/90 H 93 Room Air Laboratory Results Short CBC 11/01/23 Range/Units 06:16 WBC 4.80 (4.8-10.8) K/ul Hgb 11.6 L (12.0-16.0) g/dl Hct 35.1 L (37.0-47.0) % Plt Count 331 (130-400) K/uL [facility] 11/01/23 06:16 Sodium 141 Potassium 4.0 Chloride 113 H Carbon Dioxide 21 BUN 8 Creatinine 0.70 Glucose 184 H Calcium 8.7
--- NOTE | 2023-11-02 07:15 | Discharge Summary ---
Date of Service November 02, 2023 Admission HPI Per Admitting Provider 63-year-old female with past medical history significant for irritable bowel syndrome with diarrhea, history of GERD, history of resection of terminal ileum and cecum due to perforated diverticulitis and has short gut syndrome, fibromyalgia, migraine variant presents with several episodes of nausea/vomiting and diarrhea and when patient came in she was hypothermic and cyanotic and improved with the fluids and Zeb hugger. Patient states initially she had large bowel movement. And then later she had a lot of abdominal cramps and she sat on the commode for almost 2 hours having profuse diarrhea. And vomited several times. No blood in the vomitus. Currently nausea improved. No bowel movement currently. Somewhat wobbly while walking. Feeling weak and tired. Recently couple of weeks ago she had 10-day course of Cipro for sinusitis. Denies any fevers. Currently no headache. Vision is okay. No runny nose . Throat is dry. No cough. Currently no chest pain or shortness of breath. Sometimes in the morning she gets chest discomfort. Micturating okay. No swelling the legs. Currently hemodynamics are okay. No recent travel. No outside food. No one sick in the family. Patient states she had 2 bug bites on the legs today. Not sure if they are ticks. Patient is somewhat hard of hearing. Past medical history. As mentioned above Past surgical history. Appendectomy. Right breast biopsy. Colonoscopy. Conization of cervix. Dilatation curettage. Resection of terminal ileum and cecum due to perforated diverticulitis. Bilateral cataracts. Social history. . Quit smoking in 2014. Smoked half pack a day for 2 years. Alcohol social drinking. No drug use. Family history. Mother had diverticulitis. Irritable bowel syndrome. Father had heart disease. Stroke. Admission Exam Per Admitting Provider Physical Exam: General- Not in distress. Head- atraumatic Eyes- PERRL. ENT- oropharynx clear Neck- supple, no JVD. Heart- regular rhythm; no murmur, no gallop. Abdomen- normal bowel sounds, soft, nontender, no distension. Extremities- no pretibial edema, no erythema seen Neuro- alert, oriented PERRL, no facial palsy; no dysarthria; moves extremities. Skin- bug bites seen on b/l legs around knee/thigh region Principal Diagnosis Metabolic acidosis, nausea vomiting diarrhea-resolved Discharge Exam Lying in bed comfortably Constitutional average body habitus; not ill appearing Eyes PERRL, conjunctivae normal, anicteric sclerae ENMT external ear and nose normal, oropharynx normal Neck trachea midline, no thyromegaly Respiratory no respiratory distress Auscultation: lungs clear to auscultation bilaterally Cardiovascular Rate/Rhythm: regular rate and regular rhythm; not tachycardic Heart Sounds: normal S1 and normal S2; no murmur Extremities: no edema Gastrointestinal (Abdomen) Inspection/Auscultation: normal bowel sounds; abdomen not distended Percussion/Palpation: abdomen soft; abdomen nontender Neurologic normal touch/pain/proprioception and moves all extremities; no focal motor deficits Psychiatric A+Ox3, euthymic affect Lymphatic no cervical or axillary lymphadenopathy Discharge Data Allergies Allergy/AdvReac Type Severity Reaction Status Date / Time Sulfa (Sulfonamide Allergy Intermediate HIVES, Verified 10/30/23 23:32 Antibiotics) SWELLING amoxicillin [From Augmentin] Allergy Unknown PER [facility] Verified 10/30/23 23:32 MED LIST cat dander Allergy Unknown PER [facility] Verified 10/30/23 23:32 MED LIST clarithromycin Allergy Unknown PER [facility] Verified 10/30/23 23:32 MED LIST clavulanic acid Allergy Unknown PER [facility] Verified 10/30/23 23:32 [From Augmentin] MED LIST fluoride AdvReac Intermediate ABD PAIN, Verified 10/30/23 23:32 DIARRHEA Macrolide Antibiotics AdvReac Intermediate NAUSEA, Verified 10/30/23 23:32 VOMITING garlic AdvReac Abdominal Verified 11/01/23 12:30 Pain onion AdvReac Abdominal Verified 11/01/23 12:30 Pain Consultations 10/30/23 23:20 ED Decision to Admit Stat 10/31/23 08:00 Consult Gastroenterology Routine Ordered Studies 10/30/23 20:33 CT abd pelvis IV con only Stat Hospital Course (1) High anion gap metabolic acidosis: 63-year-old female with past medical history significant for irritable bowel syndrome with diarrhea, history of GERD, history of resection of terminal ileum and cecum due to perforated diverticulitis and has short gut syndrome, fibromyalgia, migraine variant presents with several episodes of nausea/vomiting and diarrhea and when patient came in she was hypothermic and cyanotic and improved with the fluids and Zeb hugger. Patient states initially she had large bowel movement. And then later she had a lot of abdominal cramps and she sat on the commode for almost 2 hours having profuse diarrhea. And vomited several times. No blood in the vomitus. Currently nausea improved. No bowel movement currently. Somewhat wobbly while walking. Feeling weak and tired. Recently couple of weeks ago she had 10-day course of Cipro for sinusitis. Denies any fevers. Currently no headache. Vision is okay. No runny nose . Throat is dry. No cough. Currently no chest pain or shortness of breath. Sometimes in the morning she gets chest discomfort. Micturating okay. No swelling the legs. Currently hemodynamics are okay. No recent travel. No outside food. No one sick in the family. Patient states she had 2 bug bites on the legs today. Not sure if they are ticks. Patient is somewhat hard of hearing. High anion gap metabolic acidosis probably from diarrhea getting fluids will follow repeat labs and if no improvement will consult nephrology Resolved Possible sepsis White count was elevated to more than 23 K, lactate was high on presentation but became normalized on second test Diarrhea/evidence of colitis in CAT scan Received intravenous Invanz White count and symptoms completely resolved within the next 12 to 24 hours Appreciate GI input and recommendation She tolerated regular diet without any problem She was discharged home Does not require an antibiotic as per the GI or by myself Adenoma on CAT scan Advised to have follow-up History of short gut syndrome History of migraine Currently on emgality GERD on Nexium IV Pepcid for now DVT prophylaxis heparin subcu disposition telemetry Full code. She was discharged home Total Time Total Time Spent Total Time Spent (In Minutes): 35 minutes Discharge Plan Discharge Items Patient Disposition: Home - Self-Care Reason For Visit: N/V/D, HYPOTHERMIA, MATABOLIC ACIDOSIS Discharge Diagnosis: Metabolic acidosis, nausea vomiting diarrhea-resolved Condition on Discharge: Good Activity: Resume your previous activity Non-emergency contact: Primary Care Provider Call non-emergency contact if: you have any medication questions and your symptoms worsen Follow-up/Referrals: Beau Enriquez MD [Primary Care Provider] - (Date & Time 11/05/2023 3:20 PM Provider Beau Enriquez MD [facility] ) Diet: Heart Healthy Addtl Attending Provider Instructions: Please take precautions to avoid fall No change in your current medications Please keep appointment with your healthcare provider Pending Studies at Discharge: No Stand-Alone Forms: My [facility], Smoking Cessation Medications and DC Order Prescriptions: Continued fluticasone propionate 50 mcg/actuation spray,suspension 2 spray intranasal DAILY fluticasone propion-salmeterol [Wixela Inhub] 250-50 mcg/dose blister with device 1 inh INHALATION BID rizatriptan 10 mg tablet 10 mg PO DIRECTED MDD 3 TABS/24 HOURS PRN (Reason: Migraine Headache) Rx Instructions: TAKE AT ONSET OF RE[place], REPEAT EVERY 2 HOURS UP TO 2 TIMES. amitriptyline 25 mg Tablet 50 mg PO HS Premarin 0.625 mg/gram cream 0.3125 mg vaginal 2XWK ibuprofen [Advil] 200 mg Tablet 400 mg PO Q4H PRN (Reason: Pain) dicyclomine 10 mg Capsule 10 mg PO TID PRN (Reason: ABD PAIN) esomeprazole magnesium [Nexium] 20 mg Capsule,Delayed Release(Dr/Ec) 20 mg PO DAILYBB Combivent Respimat 20-100 mcg/actuation Mist 1 puff INHALATION QID PRN (Reason: WHEEZING/COUGH) colestipol 1 gram tablet 1 g PO DAILY Multivitamin Women 50 Plus 8 mg iron-400 mcg-50 mcg Tablet 1 tab PO DAILY Rx Instructions: gummy ondansetron HCl 4 mg tablet 4 mg PO Q12 PRN (Reason: Nausea) Emgality Pen 120 mg/mL pen injector 120 mg SUBCUT .[id number] Pro+Prebiotic & Cranberry Powd 1 dose PO DAILY Discharge Orders: Discharge Order (Routine); Ordered 11/01/23 Ordered By: Syed Conn Admission Data Admit Date/Time: 10/31/23 03:30 Attending Provider: Syed Conn Admit Provider: Chucho Peoples Primary Care Provider: Beau Enriquez Other Providers: Chucho Peoples; Chalino Bowers Jr Other Interventions: Discharge Summary Assessment (RN) Last Done: 11/01/23 12:42
== END 2023-11-01 14:08 | disposition home or self-care (01) ==
LOC: ED 19:29 → EDINP 10-31 03:30 → INTOOBSV 10-31 03:30 → 2E 10-31 03:49